=== PATIENT | female | born 1985 | race Caucasian/White ===

== ENCOUNTER → 2020-09-03 | Outpatient (CLI) | payer OTHER ==
--- NOTE | 2020-09-04 08:15 | US ---
EXAMINATION TYPE: US chest DATE OF EXAM: 09/03/2020 COMPARISON: EXAMINATION TYPE: US chest DATE OF EXAM: 09/03/2020 COMPARISON: NONE CLINICAL HISTORY: R22.2 LUMP RT LOWER BACK. Lump on lower right back. Hyperechoic area seen measuring 1.5 x .8 x .7 cm. IMPRESSION: Hyperechoic lesion within the subcutaneous fat of the right back in the region of palpable abnormalit y most likely represents a lipoma, however, liposarcoma could appear identical and if there is clinic al concern, MRI with and without contrast could be performed.
== END | disposition home or self-care (01) ==
LOC: RADUSWWP 16:45
PROVIDERS: ATTEND Family Medicine
DX: R22.2 Localized swelling, mass and lump, trunk (principal)
CPT/HCPCS: 76604

== ENCOUNTER → 2020-11-26 | Outpatient (CLI) | payer OTHER ==
--- NOTE | 2020-11-26 12:30 | MR ---
EXAMINATION TYPE: MR lumbar spine wo/w con DATE OF EXAM: 11/26/2020 COMPARISON: None HISTORY: Swelling,mass,lump, Disorder of skin, are 22.2 TECHNIQUE: Multiplanar, multisequence images of the lumbar spine were acquired without and with 14 mL intravenou s Gadavist gadolinium contrast. There is artifact of the exam, possible motion at the site of patient's overlying marker in the posterior posterior aspect to the right of midline a t the level of the lower thoracic spine there is underlying fat. No evidence soft tissue mass. L1-L2: Normal disc appearance without desiccation. No herniation, protrusion or disc bulging. No ca nal stenosis is present. Foramina are patent bilaterally. L2-L3: Normal disc appearance without desiccation. No herniation, protrusion or disc bulging. No ca nal stenosis is present. Foramina are patent bilaterally. There is some facet arthropathy with hyper trophy of ligamentum flavum causing minimal posterior lateral aspect of the thecal sac. L3-L4: Normal disc appearance without desiccation. No herniation, protrusion or disc bulging. No ca nal stenosis is present. Foramina are patent bilaterally. Facet arthropathy changes present. L4-L5: Loss of disc signals consistent with disc desiccation and degenerative disc disease. Facet ar thropathy changes present causing some posterior lateral aspect of the thecal sac. There is a posteri or disc bulge causing anterior aspect of the thecal sac. No herniation, protrusion or disc bulging. No canal stenosis is present. Foramina are patent bilaterally. L5-S1: Normal disc appearance without desiccation. No herniation, protrusion or disc bulging. No ca nal stenosis is present. Foramina are patent bilaterally. Lumbar segments are intact. No paraspinal masses are identified. Conus medullaris has a normal appe arance. T10-11 shows posterior broad-based disc bulge possibly contacting the anterior thoracic cord. Multilevel Schmorl's node formation is identified. Some increased signal within the sacral alae on t he right may be related to stress changes, reactive marrow signal change. There is no abnormal enhancement following contrast administration. IMPRESSION: Generative disease and facet arthropathy as described. There is artifact on the exam. Correlate for p ossible lipoma at the site of patient's palpable mass.
== END | disposition home or self-care (01) ==
LOC: RADMRIMAIN 09:17
PROVIDERS: ATTEND Family Medicine
DX: M51.36 Other intervertebral disc degeneration, lumbar region (principal); M51.26 Other intervertebral disc displacement, lumbar region; R22.2 Localized swelling, mass and lump, trunk; M47.816 Spondylosis without myelopathy or radiculopathy, lumbar region
CPT/HCPCS: 72158

== ENCOUNTER 2021-07-25 07:47 | Emergency (ER) | payer OTHER ==
[2021-07-25 07:52] VITALS: TEMP 98.2
--- NOTE | 2021-07-25 08:14 | ED ---
General Adult HPI - General Chief complaint: Chest Pain Stated complaint: Chest Pain Time Seen by Provider: 07/25/21 07:48 Source: patient Mode of arrival: wheelchair Limitations: no limitations - History of Present Illness Initial comments: Dictation was produced using [employer] dictation software. please excuse any grammatical, word or spelling errors. Chief Complaint: 35-year-old female presents to the emergency department for couple hours of chest pain History of Present Illness: 35-year-old female she presents to emergency depa rtment for sharp chest pain. She states that it's in her left anterior chest worse with deep inspiration. Patient states she has no history of coronary artery disease however she has been seen by her private care doctor for evaluation of chest pain and was told that she should follow-up with cardiology for higher levels of some lab. Patient states she does have family history of coronary artery disease and heart attacks. Patient states that around the time that she had a sharp chest pain she did have some numbing sensation to her left upper extremity. States that her pain is worse when she takes a deep breath. Denies any shortness of breath. Patient has no history of blood clots. Denies any calf tenderness or leg swelling. The ROS documented in this emergency department record has been reviewed and confirmed by me. Those systems with pertinent positive or negative responses hedrick ve been documented in the HPI. All other systems are other negative and/or noncontributory. PHYSICAL EXAM: General Impression: Alert and oriented x3, not in acute distress HEENT: Normocephalic atraumatic, extra-ocular movements intact, pupils equal and reactive to light bilaterally, mucous membranes moist. Cardiovascular: Heart regular rate and rhythm Chest: Able to complete full sentences, no retractions, no tachypnea Abdomen: abdomen soft, non-tender, non-distended, no organomegaly Musculoskeletal: Pulses present and equal in all extremities, no peripheral edema Motor: no focal deficits noted Neurological: CN II-XII grossly intact, no focal motor or sensory deficits noted Skin: Intact with no visualized rashes Psych: Normal affect and mood ED course: 35-year-old female presents emergency department for atypical chest pain with typical features. Signs upon arrival are within acceptable limits. EKG does not show any signs of ischemia or infarction however there is T-wave inversions in 3 and aVF. Overall her EKG is nonspecific. She is well- appearing. Patient is slightly reproduced with palpation to the left anterior chest and with manipulation of the left upper extremity Laboratory evaluation obtained. CBC, coag panel, metabolic panel is unremarkable. Troponin is negative. Chest x-ray is nonacute. Disposition options were discussed. Patient agrees to the second troponin to determine criteria for discharge. Patient had second troponin drawn found to be negative. Patient be discharged and advised close follow-up with primary care doctor. EKG interpretation: Ventricular rate 70, sinus rhythm, FL interval 142, a 79, QTC 419. No FL prolongation, no QTC prolongation, T-wave inversions in lead 3 and aVF no old EKG for comparison Overall, this EKG is nonspecific - Related Data Home Medications Medication Instructions Recorded Confirmed Ergocalciferol [Vitamin D2 (1250 1,250 mcg PO MOFR 07/25/21 07/25/21 Mcg = 73796 Iu)] Loratadine [Claritin] 10 mg PO DAILY 07/25/21 07/25/21 Losartan [Cozaar] 50 mg PO DAILY 07/25/21 07/25/21 Norgestimate-Ethinyl Estradiol 1 tab PO DAILY 07/25/21 07/25/21 [Sprintec 28 Day Tablet] Allergies Allergy/AdvReac Type Severity Reaction Status Date / Time No Known Allergies Allergy Verified 07/25/21 11:01 Review of Systems ROS Statement: Those systems with pertinent positive or pertinent negative responses have been documented in the HPI. ROS Other: All systems not noted in ROS Statement are negative. Past Medical History Past Medical History: Hypertension History of Any Multi-Drug Resistant Organisms: None Reported Past Surgical History: Adenoidectomy, Tonsillectomy Past Psychological History: No Psychological Hx Reported Smoking Status: Never smoker Past Alcohol Use History: None Reported Past Drug Use History: None Reported General Exam Limitations: no limitations Course Vital Signs 07/25/21 07/25/21 07:49 08:05 Temperature 98.2 F Pulse Rate 88 79 Respiratory 16 20 Rate Blood Pressure 160/99 147/73 O2 Sat by Pulse 98 100 Oximetry Medical Decision Making - Lab Data Result diagrams: 07/25/21 08:34 07/25/21 08:34 Lab Results 07/25/21 07/25/21 07/25/21 Range/Units 08:34 08:34 08:34 WBC 7.5 (3.8-10.6) k/uL RBC 4.41 (3.80-5.40) m/uL Hgb 12.7 (11.4-16.0) gm/dL Hct 37.9 (34.0-46.0) % MCV 85.9 (80.0-100.0) fL MCH 28.7 (25.0-35.0) pg MCHC 33.4 (31.0-37.0) g/dL RDW 13.0 (11.5-15.5) % Plt Count 276 (150-450) k/uL MPV 7.8 Neutrophils % 59 % Lymphocytes % 30 % Monocytes % 6 % Eosinophils % 3 % Basophils % 1 % Neutrophils # 4.4 (1.3-7.7) k/uL Lymphocytes # 2.3 (1.0-4.8) k/uL Monocytes # 0.4 (0-1.0) k/uL Eosinophils # 0.2 (0-0.7) k/uL Basophils # 0.1 (0-0.2) k/uL PT 9.5 (9.0-12.0) sec INR 0.8 (<1.2) APTT 23.4 (22.0-30.0) sec Sodium 137 (137-145) mmol/L Potassium 3.9 (3.5-5.1) mmol/L Chloride 104 (98-107) mmol/L Carbon Dioxide 27 (22-30) mmol/L Anion Gap 6 mmol/L BUN 11 (7-17) mg/dL Creatinine 0.59 (0.52-1.04) mg/dL Est GFR (CKD-EPI)AfAm >90 (>60 ml/min/1.73 sqM) Est GFR (CKD-EPI)NonAf >90 (>60 ml/min/1.73 sqM) Glucose 110 H (74-99) mg/dL Calcium 8.2 L (8.4-10.2) mg/dL Magnesium 2.0 (1.6-2.3) mg/dL Total Bilirubin 0.3 (0.2-1.3) mg/dL AST 21 (14-36) U/L ALT 13 (4-34) U/L Alkaline Phosphatase 72 (38-126) U/L Troponin I (0.000-0.034) ng/mL Total Protein 6.8 (6.3-8.2) g/dL Albumin 3.6 (3.5-5.0) g/dL 07/25/21 07/25/21 Range/Units 08:34 11:25 WBC (3.8-10.6) k/uL RBC (3.80-5.40) m/uL Hgb (11.4-16.0) gm/dL Hct (34.0-46.0) % MCV (80.0-100.0) fL MCH (25.0-35.0) pg MCHC (31.0-37.0) g/dL RDW (11.5-15.5) % Plt Count (150-450) k/uL MPV Neutrophils % % Lymphocytes % % Monocytes % % Eosinophils % % Basophils % % Neutrophils # (1.3-7.7) k/uL Lymphocytes # (1.0-4.8) k/uL Monocytes # (0-1.0) k/uL Eosinophils # (0-0.7) k/uL Basophils # (0-0.2) k/uL PT (9.0-12.0) sec INR (<1.2) APTT (22.0-30.0) sec Sodium (137-145) mmol/L Potassium (3.5-5.1) mmol/L Chloride (98-107) mmol/L Carbon Dioxide (22-30) mmol/L Anion Gap mmol/L BUN (7-17) mg/dL Creatinine (0.52-1.04) mg/dL Est GFR (CKD-EPI)AfAm (>60 ml/min/1.73 sqM) Est GFR (CKD-EPI)NonAf (>60 ml/min/1.73 sqM) Glucose (74-99) mg/dL Calcium (8.4-10.2) mg/dL Magnesium (1.6-2.3) mg/dL Total Bilirubin (0.2-1.3) mg/dL AST (14-36) U/L ALT (4-34) U/L Alkaline Phosphatase (38-126) U/L Troponin I <0.012 <0.012 (0.000-0.034) ng/mL Total Protein (6.3-8.2) g/dL Albumin (3.5-5.0) g/dL Disposition Clinical Impression: Chest pain Disposition: HOME SELF-CARE Condition: Fair Instructions (If sedation given, give patient instructions): Chest Pain (ED) Is patient prescribed a controlled substance at d/c from ED?: No Referrals: Maria Alejandra Nolan MD [Primary Care Provider] - 1-2 days Time of Disposition: 12:16
[2021-07-25 08:43] LABS: Basophils # (A) 0.1 k/uL (0-0.2); Basophils % (A) 1 %; Eosinophils # (A) 0.2 k/uL (0-0.7); Eosinophils % (A) 3 %; HCT 37.9 % (34.0-46.0); HGB 12.7 gm/dL (11.4-16.0); Lymphocytes # (A) 2.3 k/uL (1.0-4.8); Lymphocytes % (A) 30 %; MCH 28.7 pg (25.0-35.0); MCHC 33.4 g/dL (31.0-37.0); MCV 85.9 fL (80.0-100.0); Mean Platelet Volume 7.8; Monocytes # (A) 0.4 k/uL (0-1.0); Monocytes % (A) 6 %; Neutrophils # (A) 4.4 k/uL (1.3-7.7); Neutrophils % (A) 59 %; Platelet Count 276 k/uL (150-450); RBC 4.41 m/uL (3.80-5.40); WBC 7.5 k/uL (3.8-10.6)
[2021-07-25 08:56] LABS: INR 0.8 (<1.2); Partial Thromboplastin Time 23.4 sec (22.0-30.0); Prothrombin Time 9.5 sec (9.0-12.0)
[2021-07-25 08:58] LABS: ALT 13 U/L (4-34); AST 21 U/L (14-36); African American GFR (CKD) >90 (>60 ml/min/1.73 sqM); Albumin 3.6 g/dL (3.5-5.0); Alkaline Phosphatase 72 U/L (38-126); Anion Gap 6 mmol/L; Blood Urea Nitrogen 11 mg/dL (7-17); Calcium 8.2 mg/dL (8.4-10.2); Carbon Dioxide 27 mmol/L (22-30); Chloride 104 mmol/L (98-107); Glucose 110 mg/dL (74-99); Non-African American GFR(CKD) >90 (>60 ml/min/1.73 sqM); Potassium 3.9 mmol/L (3.5-5.1); Sodium 137 mmol/L (137-145); Total Bilirubin 0.3 mg/dL (0.2-1.3); Total Protein 6.8 g/dL (6.3-8.2)
--- NOTE | 2021-07-25 08:59 | XR ---
EXAMINATION TYPE: XR chest 2V DATE OF EXAM: 07/25/2021 COMPARISON: NONE HISTORY: Chest pain There is no interstitial opacities or pulmonary vascular congestion TECHNIQUE: Frontal and lateral views of the chest are obtained. FINDINGS: There is no focal air space opacity, pleural effusion, or pneumothorax seen. The cardiac silhouette size is within normal limits. The osseous structures are intact. There are no interstitial opacities and no pulmonary vascular congestion. IMPRESSION: No acute cardiopulmonary process.
[2021-07-25] MEDS ORDERED: ASPIRIN 81 MG PO STA (09:28)
[2021-07-25 12:32] VITALS: BP 140/78; PULSE 80; RESP 18
== END 2021-07-25 12:35 | disposition home or self-care (01) ==
LOC: EC 07:47
DX: R07.89 Other chest pain (principal); I10 Essential (primary) hypertension
CPT/HCPCS: 36415; 71046; 80053; 83735; 84484; 85025; 85610; 85730; 93005; 99285

== ENCOUNTER → 2022-03-08 | Outpatient (CLI) | payer BC ==
--- NOTE | 2022-03-08 10:30 | US ---
EXAMINATION TYPE: US abdomen complete DATE OF EXAM: 03/08/2022 COMPARISON: NONE CLINICAL HISTORY: E55.9 vit D deficiency R12 heartburn. Heartburn exam limitations due to body habit us. TECHNIQUE: Multiple sonographic images of the abdomen are obtained. 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 The liver is homogenous. The intrahepatic portion of the IVC and proximal abdominal aorta are within normal limits. There is no evidence of c holelithiasis. Common bile duct is unremarkable. Pancreas is not well seen. The spleen is unremarka ble. Kidneys are symmetric and free of hydronephrosis. No renal lesions are seen. IMPRESSION: Limited examination due to body habitus, but no specific abnormality noted.
== END | disposition home or self-care (01) ==
LOC: RADUSWWP 09:30
PROVIDERS: ATTEND Family Medicine
DX: E55.9 Vitamin D deficiency, unspecified (principal); R12 Heartburn
CPT/HCPCS: 76700

== ENCOUNTER → 2022-07-05 | Outpatient (CLI) | payer BC ==
--- NOTE | 2022-07-06 16:02 | XR ---
EXAMINATION TYPE: XR foot complete RT DATE OF EXAM: 07/05/2022 CLINICAL HISTORY: Pain. Recent kicking injury. TECHNIQUE: Frontal, lateral, and oblique images of the right foot are obtained. COMPARISON: None FINDINGS: There is no acute fracture/dislocation evident in the right foot. Flexion within the toes is present. There is mild to moderate narrowing and mild spurring at the first metatarsophalangeal arti int. Tiny inferior calcaneal spur. There is enthesopathy posterior superior calcaneus at distal Achil les tendon insertion. There is moderate spurring midfoot level dorsal aspect on the lateral view. Ove rlying soft tissue is unremarkable. IMPRESSION: As above.
== END | disposition home or self-care (01) ==
LOC: RADXRMAIN 16:07
PROVIDERS: ATTEND Family Medicine
DX: M77.31 Calcaneal spur, right foot (principal); M76.61 Achilles tendinitis, right leg

== ENCOUNTER 2022-07-16 10:48 | Emergency (ER) | payer BC ==
[2022-07-16 10:58] VITALS: TEMP 98.1
--- NOTE | 2022-07-16 11:38 | ED ---
General Adult HPI - General Chief complaint: Extremity Problem,Nontraumatic Stated complaint: R foot numbness Time Seen by Provider: 07/16/22 11:04 Source: patient, RN notes reviewed Mode of arrival: ambulatory Limitations: no limitations - History of Present Illness Initial comments: 36-year-old female presents to the emergency department with chief complaint of right foot pain. Patient states that the pain started a couple weeks ago and has progressively gotten worse. She has been following with her primary care physician for this she was seen yesterday at Dr. Lutz's office. She states that she has numbness in her second through fifth digits which does not extend into the foot. She has been staying off of her foot at work per request of Dr. Lutz. She is taking meloxicam for the pain which she states does not help. She last took it this morning. She denies any new injury. Denies fever, chills. Denies erythema, swelling. Past medical history includes hypertension, GERD. - Related Data Home Medications Medication Instructions Recorded Confirmed Ergocalciferol [Vitamin D2 (1250 1,250 mcg PO MOFR 07/25/21 07/25/21 Mcg = 73741 Iu)] Loratadine [Claritin] 10 mg PO DAILY 07/25/21 07/25/21 Losartan [Cozaar] 50 mg PO DAILY 07/25/21 07/25/21 norgestimate-ethinyl estradioL 1 tab PO DAILY 07/25/21 07/25/21 [Sprintec 28 Day Tablet] Allergies Allergy/AdvReac Type Severity Reaction Status Date / Time No Known Allergies Allergy Verified 07/16/22 10:58 Review of Systems ROS Statement: Those systems with pertinent positive or pertinent negative responses have been documented in the HPI. ROS Other: All systems not noted in ROS Statement are negative. Past Medical History Past Medical History: Hypertension, Rheumatoid Arthritis (RA) History of Any Multi-Drug Resistant Organisms: None Reported Past Surgical History: Adenoidectomy, Tonsillectomy Past Psychological History: No Psychological Hx Reported Smoking Status: Never smoker Past Alcohol Use History: None Reported Past Drug Use History: None Reported General Exam Limitations: no limitations General appearance: alert, in no apparent distress Head exam: Present: atraumatic, normocephalic, normal inspection Eye exam: Present: normal appearance ENT exam: Present: normal exam, mucous membranes moist Neck exam: Present: normal inspection. Absent: tenderness, meningismus, lymphadenopathy Respiratory exam: Present: normal lung sounds bilaterally. Absent: respiratory distress, wheezes, rales, rhonchi, stridor Cardiovascular Exam: Present: regular rate, normal rhythm, normal heart sounds. Absent: systolic murmur, diastolic murmur, rubs, gallop, clicks Extremities exam: Present: normal capillary refill, other (Decreased ROM at digits 2-5, tenderness over dorsal foot, DP and PT pulses 2+). Absent: pedal edema, joint swelling, calf tenderness Back exam: Present: normal inspection Neurological exam: Present: alert, oriented X3, other (DP and PT pulses 2+) Psychiatric exam: Present: normal affect, normal mood Skin exam: Present: warm, dry, intact, normal color, other. Absent: rash Course Vital Signs 07/16/22 07/16/22 10:56 12:42 Temperature 98.1 F 98.1 F Pulse Rate 89 87 Respiratory 20 18 Rate Blood Pressure 152/98 140/78 O2 Sat by Pulse 99 99 Oximetry Medical Decision Making - Medical Decision Making Was pt. sent in by a medical professional or institution ([facility] Kelly, RN BUILDING, urgent care, hospital, or custodial...) When possible be specific @ -No Did you speak to anyone other than the patient for history (EMS, parent, family, police, friend...)? What history was obtained from this source @ -No Did you review nursing and triage notes (agree or disagree)? Why? @ -I reviewed and agree with nursing and triage notes Were old charts reviewed (outside hosp., previous admission, EMS record, old EKG, old radiological studies, urgent care reports/EKG's, custodial records)? Report findings @ -X-ray from 07/05/22 was reviewed which showed osteoarthritis Differential Diagnosis (chest pain, altered mental status, abdominal pain women, abdominal pain men, vaginal bleeding, weakness, fever, dyspnea, syncope, headache, dizziness, GI bleed, back pain, seizure, CVA, palpatations, mental health, musculoskeletal)? @ -Differential Musculoskeletal Muscular strain, contusion, ligament sprain, fracture, arthritis, septic arthritis, bursitis, cellulitis, muscle spasm, nerve compression, DVT, arterial occlusion, herpes zoster, electrolyte abnormality, tumor.... This is not meant to be in all inclusive list EKG interpreted by me (3pts min.). @ -None X-rays interpreted by me (1pt min.). @ -X-ray of the right foot showed no acute fractures or dislocations. CT interpreted by me (1pt min.). @ -None done U/S interpreted by me (1pt. min.). @ -None done What testing was considered but not performed or refused? (CT, X-rays, U/S, labs)? Why? @ -None What meds were considered but not given or refused? Why? @ -None Did you discuss the management of the patient with other professionals (professionals i.e. Dr., PA, RN BUILDING, lab, RT, psych nurse, social media campaign manager, key person, teacher, correctional probation officer, geriatric case manager)? Give summary @ -No Was smoking cessation discussed for >3mins.? @ -No Was critical care preformed (if so, how long)? @ -No Were there social determinants of health that impacted care today? How? (Homelessness, low income, unemployed, alcoholism, drug addiction, transportation, low edu. Level, literacy, decrease access to med. care, shelter, rehab)? @ -No Was there de-escalation of care discussed even if they declined (Discuss DNR or withdrawal of care, Hospice)? DNR status @ -No What co-morbidities impacted this encounter? (DM, HTN, Smoking, COPD, CAD, Cancer, CVA, ARF, Chemo, Hep., AIDS, mental health diagnosis, sleep apnea, morbid obesity)? @ -None Was patient admitted / discharged? Hospital course, mention meds given and route, prescriptions, significant lab abnormalities, going to OR and other pertinent info. @ -Discharged. Patient presented to emergency department with chief complaint of right foot pain. Patient states that the pain is been going on for 1-2 months. On examination, foot is warm, skin dry and intact, DP and PT pulses 2+ bilaterally. No erythema or edema to the right leg or foot. X-ray was obtained which showed no acute fractures or dislocations. Return precautions discussed with the patient. Patient advised to continue the meloxicam as needed for pain and follow-up with Dr. Lutz for potential podiatry referral. Patient was requesting a work note for tomorrow which she was given with return on monday. Patient discharged in stable condition. The patient was assessed by my attending, Dr. Acosta as well was agreeing with my assessment. Undiagnosed new problem with uncertain prognosis? @ -No Drug Therapy requiring intensive monitoring for toxicity (Heparin, Nitro, Insulin, Cardizem)? @ -No Were any procedures done? @ -No Diagnosis/symptom? @ -Foot pain Acute, or Chronic, or Acute on Chronic? @ -Acute Uncomplicated (without systemic symptoms) or Complicated (systemic symptoms)? @ -uncomplicated Side effects of treatment? @ -No Exacerbation, Progression, or Severe Exacerbation? @ -No Poses a threat to life or bodily function? How? (Chest pain, USA, VT, pneumonia, PE, COPD, DKA, ARF, appy, cholecystitis, CVA, Diverticulitis, Homicidal, Suicidal, threat to staff... and all critical care pts) @ -No Disposition Clinical Impression: Foot pain, right Disposition: HOME SELF-CARE Condition: Stable Instructions (If sedation given, give patient instructions): Arthritis (ED) Additional Instructions: Follow-up with Dr. Lutz on Monday. Please return to the emergency department for new or worsening symptoms. Is patient prescribed a controlled substance at d/c from ED?: No Referrals: Robin Lutz DO [Primary Care Provider] - 1-2 days Time of Disposition: 12:26
--- NOTE | 2022-07-16 11:55 | XR ---
EXAMINATION TYPE: XR foot complete RT DATE OF EXAM: 07/16/2022 CLINICAL HISTORY: pain TECHNIQUE: Frontal, lateral and oblique images of the right foot are obtained. COMPARISON: None. FINDINGS: There is no acute fracture/dislocation evident. The joint spaces appear within normal larry its. The overlying soft tissue appears unremarkable. IMPRESSION: There is no acute fracture or dislocation. ICD 10 NO FRACTURE, INITIAL EVALUATION
[2022-07-16 12:43] VITALS: BP 140/78; PULSE 87; RESP 18
== END 2022-07-16 12:43 | disposition home or self-care (01) ==
LOC: EC 10:48
DX: M79.671 Pain in right foot (principal); I10 Essential (primary) hypertension
CPT/HCPCS: 99283

== ENCOUNTER 2022-07-22 20:04 | Inpatient (IN) | payer BC ==
[2022-07-22] MEDS ORDERED: SODIUM CHLORIDE 0.9% 1,000 ML IV STA (20:11)
--- NOTE | 2022-07-22 20:28 | ED ---
Dizziness HPI - General Chief Complaint: Syncope Stated Complaint: Near Syncope Time Seen by Provider: 07/22/22 20:11 Source: patient, EMS, RN notes reviewed, old records reviewed Mode of arrival: EMS Limitations: no limitations - History of Present Illness Initial Comments: This is a 36-year-old female to the emergency department for evaluation by the patient presents today for evaluation of not feeling well. She had syncopal episode just prior to arrival this lasted for about quite some time per family she was initially pale diaphoretic and turning blue. Patient states she's been dealing with recently significant right lower extremity pain has kept her out of work is unable to walk on her right leg in the white leg turns blue with significant exertion. Pain on the foot is just with ambulation. Denying current chest pain or shortness of breath MD Complaint: dizziness, near syncope -: days(s) Timing: sudden onset, gradual onset, waxing/waning, now resolved Description: near-syncope History of Same: No History of Trauma: No Severity: moderate Improves With: remaining still Associated Symptoms: denies other symptoms - Related Data Home Medications Medication Instructions Recorded Confirmed Loratadine [Claritin] 10 mg PO HS 07/25/21 07/22/22 Albuterol Inhaler [Ventolin Hfa 2 puff INHALATION RT-Q6H PRN 07/22/22 07/22/22 Inhaler] Pantoprazole [Protonix] 40 mg PO DAILY 07/22/22 07/22/22 Previous Rx's Medication Instructions Recorded Apixaban [Eliquis Starter Pack 5 - 10 mg PO DIRECTED 30 Days 07/25/22 (for VTE)] #1 each Allergies Allergy/AdvReac Type Severity Reaction Status Date / Time No Known Allergies Allergy Verified 07/22/22 21:43 Review of Systems ROS Statement: Those systems with pertinent positive or pertinent negative responses have been documented in the HPI. ROS Other: All systems not noted in ROS Statement are negative. Past Medical History Past Medical History: Hypertension, Rheumatoid Arthritis (RA) History of Any Multi-Drug Resistant Organisms: None Reported Past Surgical History: Adenoidectomy, Tonsillectomy Past Psychological History: No Psychological Hx Reported Smoking Status: Never smoker Past Alcohol Use History: None Reported Past Drug Use History: None Reported General Exam Limitations: no limitations General appearance: alert, in no apparent distress, anxious Head exam: Present: atraumatic, normocephalic, normal inspection Eye exam: Present: normal appearance, PERRL, EOMI. Absent: scleral icterus, conjunctival injection, periorbital swelling ENT exam: Present: normal exam, mucous membranes moist Neck exam: Present: normal inspection. Absent: tenderness, meningismus, lymphadenopathy Respiratory exam: Present: normal lung sounds bilaterally. Absent: respiratory distress, wheezes, rales, rhonchi, stridor Cardiovascular Exam: Present: normal rhythm, tachycardia, normal heart sounds. Absent: systolic murmur, diastolic murmur, rubs, gallop, clicks GI/Abdominal exam: Present: soft, normal bowel sounds. Absent: distended, tenderness, guarding, rebound, rigid Extremities exam: Present: normal inspection, full ROM, normal capillary refill. Absent: tenderness, pedal edema, joint swelling, calf tenderness Back exam: Present: normal inspection Neurological exam: Present: alert, oriented X3, CN II-XII intact Psychiatric exam: Present: normal affect, normal mood Skin exam: Present: warm, dry, intact, normal color. Absent: rash Course Vital Signs 07/22/22 07/22/22 20:06 22:41 Temperature 98.8 F 98.4 F Pulse Rate 110 H 98 Respiratory 18 18 Rate Blood Pressure 149/110 128/82 O2 Sat by Pulse 97 97 Oximetry - Reevaluation(s) Reevaluation #1: 07/22/22 20:26 Medical record is reviewed Reevaluation #2: 07/22/22 20:27 Patient symptoms are improved no recurrent syncope Reevaluation #3: 07/22/22 20:27 Patient informed results questions Reevaluation #4: 07/22/22 20:28 Was pt. sent in by a medical professional or institution? @ -no Did you speak to anyone other than the patient for history? @ -no Did you review nursing and triage notes? @ -agree Were old charts reviewed? @ -no Differential Diagnosis? @ -prior EKG interpreted by me (3pts min.)? @ -yes X-rays interpreted by me (1pt min.)? @ -no CT interpreted by me (1pt min.)? @ -yes U/S interpreted by me (1pt. min.)? @ -yes What testing was considered but not performed? (CT, X-rays, U/S, labs)? Why? @ -no What meds were considered but not given? Why? @ -TPA for PE with significant burn of Did you discuss the management of the patient with other professionals? @ -no Did you reconcile home meds? @ -no Was smoking cessation discussed for >3mins.? @ -no Was critical care preformed (if so, how long)? @ -yes31 Were there social determinants of health that impacted care today? How? (Homelessness, low income, unemployed, alcoholism, drug addiction, transportation, low edu. Level, literacy, decrease access to med. care, snf, rehab)? @ -no Was there de-escalation of care discussed even if they declined? (Discuss DNR or withdrawal of care, Hospice)? @ -no What co-morbidities impacted this encounter? (DM, HTN, Smoking, COPD, CAD, Cancer, CVA, Hep., AIDS, mental health diagnosis, sleep apnea, morbid obesity)? @ -none Was patient admitted / discharged? @ -36 female to the emergency department for evaluation of a syncopal event. Patient had syncope here and prior to the emergency department with PE causing syncope, pulmonary embolism causing syncope, pulmonary embolism from right lower extremity DVT Admitted Undiagnosed new problem with uncertain prognosis? @ -no Drug Therapy requiring intensive monitoring for toxicity (Heparin, Nitro, Insulin, Cardizem)? @ -no Were any procedures done? @ -no Diagnosis/symptom? @ -Pulmonary embolism from syncope Acute, or Chronic, or Acute on Chronic? @ -Acute Uncomplicated (without systemic symptoms) or Complicated (systemic symptoms)? @ -complicated Side effects of treatment? @ -no Exacerbation, Progression, or Severe Exacerbation] @ -no Poses a threat to life or bodily function? @ -yes PE regarding significant syncope Reevaluation #5: 07/22/22 20:27 Differential Syncope: Valvular disease, hypertrophic cardiomyopathy, pulmonary embolism, tamponade, tachycardia, bradycardia, NV, hypovolemia, hemorrhage, dissection, anemia, intracranial hemorrhage, seizure, hypoglycemia, carbon monoxide poisoning, this is not meant to be an all-inclusive list. - Consultations Consultation #1: Spoke with admitting physicians who agree to admit this patient Consultation #2: Spoke with vascular surgery who will see patient in regards to PE EKG Findings - EKG Comments: EKG Findings:: EKG is sinus tachycardia 113 MN 108 QRS 82 QTC 377 - EKG Results: EKG: interpreted by ALIREZA Medical Decision Making - Medical Decision Making 36 female to the emergency department for evaluation of a syncopal event. Patient had syncope here and prior to the emergency department with PE causing syncope, pulmonary embolism causing syncope, pulmonary embolism from right lower extremity DVT - Lab Data Result diagrams: 07/25/22 03:11 07/25/22 03:11 Lab Results 07/22/22 07/22/22 07/22/22 Range/Units 20:15 20:15 20:15 WBC 11.4 H (3.8-10.6) k/uL RBC 5.48 H (3.80-5.40) m/uL Hgb 15.1 (11.4-16.0) gm/dL Hct 44.8 (34.0-46.0) % MCV 81.8 (80.0-100.0) fL MCH 27.5 (25.0-35.0) pg MCHC 33.6 (31.0-37.0) g/dL RDW 13.3 (11.5-15.5) % Plt Count 241 (150-450) k/uL MPV 8.4 Neutrophils % 56 % Lymphocytes % 33 % Monocytes % 6 % Eosinophils % 2 % Basophils % 1 % Neutrophils # 6.4 (1.3-7.7) k/uL Lymphocytes # 3.8 (1.0-4.8) k/uL Monocytes # 0.7 (0-1.0) k/uL Eosinophils # 0.2 (0-0.7) k/uL Basophils # 0.1 (0-0.2) k/uL PT 10.3 (9.0-12.0) sec INR 1.0 (<1.2) APTT 23.5 (22.0-30.0) sec D-Dimer 12.05 H (<0.60) mg/L FEU Sodium 137 (137-145) mmol/L Potassium 4.2 (3.5-5.1) mmol/L Chloride 101 (98-107) mmol/L Carbon Dioxide 21 L (22-30) mmol/L Anion Gap 15 mmol/L BUN 18 H (7-17) mg/dL Creatinine 0.75 (0.52-1.04) mg/dL Est GFR (CKD-EPI)AfAm >90 (>60 ml/min/1.73 sqM) Est GFR (CKD-EPI)NonAf >90 (>60 ml/min/1.73 sqM) Glucose 115 H (74-99) mg/dL Calcium 9.2 (8.4-10.2) mg/dL Magnesium 1.9 (1.6-2.3) mg/dL Total Bilirubin 0.6 (0.2-1.3) mg/dL AST 31 (14-36) U/L ALT 28 (4-34) U/L Alkaline Phosphatase 94 (38-126) U/L Troponin I (0.000-0.034) ng/mL NT-Pro-B Natriuret Pep pg/mL Total Protein 8.0 (6.3-8.2) g/dL Albumin 4.2 (3.5-5.0) g/dL 07/22/22 07/22/22 Range/Units 20:15 20:15 WBC (3.8-10.6) k/uL RBC (3.80-5.40) m/uL Hgb (11.4-16.0) gm/dL Hct (34.0-46.0) % MCV (80.0-100.0) fL MCH (25.0-35.0) pg MCHC (31.0-37.0) g/dL RDW (11.5-15.5) % Plt Count (150-450) k/uL MPV Neutrophils % % Lymphocytes % % Monocytes % % Eosinophils % % Basophils % % Neutrophils # (1.3-7.7) k/uL Lymphocytes # (1.0-4.8) k/uL Monocytes # (0-1.0) k/uL Eosinophils # (0-0.7) k/uL Basophils # (0-0.2) k/uL PT (9.0-12.0) sec INR (<1.2) APTT (22.0-30.0) sec D-Dimer (<0.60) mg/L FEU Sodium (137-145) mmol/L Potassium (3.5-5.1) mmol/L Chloride (98-107) mmol/L Carbon Dioxide (22-30) mmol/L Anion Gap mmol/L BUN (7-17) mg/dL Creatinine (0.52-1.04) mg/dL Est GFR (CKD-EPI)AfAm (>60 ml/min/1.73 sqM) Est GFR (CKD-EPI)NonAf (>60 ml/min/1.73 sqM) Glucose (74-99) mg/dL Calcium (8.4-10.2) mg/dL Magnesium (1.6-2.3) mg/dL Total Bilirubin (0.2-1.3) mg/dL AST (14-36) U/L ALT (4-34) U/L Alkaline Phosphatase (38-126) U/L Troponin I 0.079 H* (0.000-0.034) ng/mL NT-Pro-B Natriuret Pep 1260 pg/mL Total Protein (6.3-8.2) g/dL Albumin (3.5-5.0) g/dL - EKG Data -: EKG Interpreted by Me (EKG is sinus tachycardia 113 MN 108 QRS 82 QTC 377) - Radiology Data Radiology results: report reviewed (CTA chest positive for bilateral PE, ultrasound shows positive DVT), image reviewed Critical Care Time Critical Care Time: Yes Total Critical Care Time: 31 Disposition Clinical Impression: Syncope, Pulmonary embolism, Right leg DVT, Bilateral pulmonary embolism, Dehydration, Weakness Disposition: ADMITTED IP TO THIS [facility] Condition: Stable Is patient prescribed a controlled substance at d/c from ED?: No Time of Disposition: 22:30
[2022-07-22 20:33] LABS: Basophils # (A) 0.1 k/uL (0-0.2); Basophils % (A) 1 %; Eosinophils # (A) 0.2 k/uL (0-0.7); Eosinophils % (A) 2 %; HCT 44.8 % (34.0-46.0); HGB 15.1 gm/dL (11.4-16.0); Lymphocytes # (A) 3.8 k/uL (1.0-4.8); Lymphocytes % (A) 33 %; MCH 27.5 pg (25.0-35.0); MCHC 33.6 g/dL (31.0-37.0); MCV 81.8 fL (80.0-100.0); Mean Platelet Volume 8.4; Monocytes # (A) 0.7 k/uL (0-1.0); Monocytes % (A) 6 %; Neutrophils # (A) 6.4 k/uL (1.3-7.7); Neutrophils % (A) 56 %; Platelet Count 241 k/uL (150-450); RBC 5.48 m/uL (3.80-5.40); RDW 13.3 % (11.5-15.5); WBC 11.4 k/uL (3.8-10.6)
[2022-07-22 20:35] LABS: ALT 28 U/L (4-34); African American GFR (CKD) >90 (>60 ml/min/1.73 sqM); Albumin 4.2 g/dL (3.5-5.0); Anion Gap 15 mmol/L; Blood Urea Nitrogen 18 mg/dL (7-17); Calcium 9.2 mg/dL (8.4-10.2); Carbon Dioxide 21 mmol/L (22-30); Chloride 101 mmol/L (98-107); Glucose 115 mg/dL (74-99); Non-African American GFR(CKD) >90 (>60 ml/min/1.73 sqM); Sodium 137 mmol/L (137-145)
[2022-07-22 20:36] LABS: AST 31 U/L (14-36); Alkaline Phosphatase 94 U/L (38-126); Magnesium 1.9 mg/dL (1.6-2.3); Potassium 4.2 mmol/L (3.5-5.1); Total Bilirubin 0.6 mg/dL (0.2-1.3)
[2022-07-22 20:48] LABS: Partial Thromboplastin Time 23.5 sec (22.0-30.0); Prothrombin Time 10.3 sec (9.0-12.0)
[2022-07-22] MEDS ORDERED: NALOXONE 0.4 MG/ML 1 ML VIAL IV PRN (21:58)
--- NOTE | 2022-07-22 22:19 | CT ---
EXAMINATION TYPE: CT angio chest CT DLP: 731.5 mGycm, Automated exposure control for dose reduction was used. DATE OF EXAM: 07/22/2022 9:53 PM COMPARISON: Chest radiograph from 07/25/2021 CLINICAL INDICATION:Female, 36 years old with history of syncope; R/O PE TECHNIQUE/CONTRAST: CTA scan of the thorax is performed with IV Contrast, patient injected with 100ML mL of Isovue 370, p ulmonary embolism protocol. MIP images are created and reviewed these are created on a separate work station.. FINDINGS: Pulmonary Artery: There is a saddle pulmonary embolus with filling defect extending into the lobar, s egmental and subsegmental branches throughout the lungs. RV LV ratio of 44mm/20mm = 2.2. Lungs/Pleura: No evidence of focal consolidation, pleural effusion or pneumothorax. Airway: Large airways are patent. Heart: Heart is within normal limits for size. Vasculature: No evidence of aortic aneurysm. Mediastinum: No gross evidence of adenopathy. Musculoskeletal: No acute osseous abnormalities Soft Tissues: Unremarkable. Lower neck: No significant findings. Upper Abdomen: No significant findings. IMPRESSION: Saddle Central pulmonary embolus extending into the lobar, segmental and subsegmental branches with e vidence of right heart strain. RV/LV ratio of 44/20 = 2.2. Findings communicated to Dr. Palomo Clement DO on 07/22/2022 10:[address] Red Storm.
[2022-07-22] MEDS ORDERED: HEPARIN SODIUM 1,000 UN/ML (10ML VL) IV PRN (22:24)
[2022-07-22] MEDS ORDERED: HEPARIN SODIUM 1,000 UN/ML (10ML VL) IV ONE (22:24)
--- NOTE | 2022-07-22 22:59 | US ---
EXAMINATION TYPE: US venous doppler duplex LE BI DATE OF EXAM: 07/22/2022 9:23 PM COMPARISON: NONE CLINICAL INDICATION: Female, 36 years old with history of syncope; Elevated ddimer. PE. Not on bloo d thinners. EC patient. SIDE PERFORMED: Bilateral TECHNIQUE: The lower extremity deep venous system is examined utilizing real time linear array sonog alon with graded compression, doppler sonography and color-flow sonography. VESSELS IMAGED: Common Femoral Vein Deep Femoral Vein Greater Saphenous Vein * Femoral Vein Popliteal Vein Small Saphenous Vein * Proximal Calf Veins (* superficial vessels) Right Leg: Positive for DVT in Popliteal vein, noncompressible Left Leg: Negative for DVT IMPRESSION: Positive deep vein thrombosis in the right popliteal vein, this: Size with the central pu lmonary embolus seen on same day CT chest angiogram.
[2022-07-23] MEDS: MORPHINE SULFATE 4 MG/ML SYRINGE IV PRN ×2 (00:30→22:09)
[2022-07-23] MEDS: ONDANSETRON 4 MG/2 ML VIAL IVP PRN ×3 (00:31→22:09)
[2022-07-23] MEDS: SODIUM CHLORIDE 0.9% 1,000 ML IV SCH ×4 (00:31→16:21)
[2022-07-23] MEDS: HEPARIN SOD,PORK IN 0.45% NACL 25,000 UNIT in 0.45% NACL 1 250ML.BAG IV SCH ×5 (00:32→16:21)
[2022-07-23] MEDS ORDERED: ACETAMINOPHEN TAB 325 MG TAB PO STA (05:32)
[2022-07-23 05:37] LABS: Basophils % (A) 0 %; Eosinophils # (A) 0.2 k/uL (0-0.7); Eosinophils % (A) 2 %; HCT 40.7 % (34.0-46.0); HGB 13.1 gm/dL (11.4-16.0); Lymphocytes # (A) 3.6 k/uL (1.0-4.8); Lymphocytes % (A) 35 %; MCH 26.9 pg (25.0-35.0); MCHC 32.3 g/dL (31.0-37.0); MCV 83.3 fL (80.0-100.0); Mean Platelet Volume 8.5; Monocytes # (A) 0.8 k/uL (0-1.0); Monocytes % (A) 8 %; Neutrophils # (A) 5.6 k/uL (1.3-7.7); Neutrophils % (A) 53 %; Platelet Count 214 k/uL (150-450); RBC 4.88 m/uL (3.80-5.40); RDW 13.4 % (11.5-15.5); WBC 10.5 k/uL (3.8-10.6)
[2022-07-23] MEDS: ACETAMINOPHEN TAB 325 MG TAB PO PRN ×2 (12:18→18:20)
--- NOTE | 2022-07-23 13:12 | P.CRDCN ---
History of Present Illness Consult date: 07/23/22 Consult reason: sycope History of present illness: History of present illness: Patient is a pleasant 36-year-old female with significant past medical history of hypertension (on blood pressure medication since age 22) who presented to the emergency department with complaints of syncope. She reports that 1 week ago she noticed that her right leg was hurting in her right foot was starting to turn blue, she was seen at that time and foot x-ray completed. Then yesterday she was at her parent's house walking down some steps when she felt faint and went to sit down but did lose consciousness from approximately less than 1 minute. She denies any prior history of syncope. She does have a significant family history of heart disease including grandfather with CABG, uncle and aunt with multiple PCI and a cousin with history of blood clots. CTA of the chest and reveals subtle central pulmonary embolus extending into the lobar, segmental and subsegmental branches with evidence of right heart strain. Venous Doppler was positive for DVT and popliteal vein, left leg negative for DVT. EKG shows sinus tachycardia with occasional PVCs, nonspecific T-wave changes. She denies any prior history of blood clots. Labs revealed troponin elevated 0.079, 0.217, 0.196, BNP 1260. She was started on a heparin drip. She is feeling a little better this morning, does get short of breath when getting up to use bedside commode. She has mild chest pain that she relates is a 2/10. Denies any dizziness or lightheadedness. No further episodes of syncope. REVIEW OF SYSTEMS: No fever or chills. No cough or expectoration. No diaphoresis. Patient denies headache, dizziness, blurred vision, double vision. Patient denies any stomach discomfort. No nausea, vomiting. No hematochezia. No hematemesis. Denies any black stools or blood in his stools. Denies dysuria or hematuria. No muscle weakness or numbness. Reports shortness of breath, mild ch est discomfort, right leg pain. PHYSICAL EXAMINATION: This is a 36-year-old email in no apparent distress at the time of my examination. HEENT: Head is atraumatic, normocephalic. Pupils are equal, round. Sclerae anicteric. Conjunctivae are clear. Mucous membranes of the mouth are moist. Neck is supple. There is no jugular venous distention. No carotid bruit is heard. CHEST EXAMINATION: Lungs are clear to auscultation. No chest wall tenderness is noted on palpation or with deep breathing. HEART EXAMINATION: Heart regular rate and rhythm. S1, S2 heard. No murmurs, gallops or rub. ABDOMEN: Soft, nontender. Bowel sounds are heard. EXTREMITIES: Trace RLE edema right calf tenderness noted. NEUROLOGIC EXAMINATION: Patient is awake, alert and oriented x3. IMPRESSION AND PLAN: Saddle PE with evidence of right heart strain Right popliteal DVT Dyspnea Chest pain Syncope, likely related to PE Abnormal troponin PLAN: We will check echocardiogram. Continue with anticoagulation. Will check lipid panel given significant family history of CAD. Further management of pulmonary embolism as per vascular surgery. I am dictating on behalf of Dr. Hardik Pérez's history/physical and assessm ent/plan. Past Medical History Past Medical History: Hypertension, Rheumatoid Arthritis (RA), Syncope History of Any Multi-Drug Resistant Organisms: None Reported Past Surgical History: Adenoidectomy, Tonsillectomy Past Psychological History: No Psychological Hx Reported Smoking Status: Never smoker Past Alcohol Use History: None Reported Past Drug Use History: None Reported Medications and Allergies Home Medications Medication Instructions Recorded Confirmed Type Loratadine [Claritin] 10 mg PO HS 07/25/21 07/22/22 History Losartan [Cozaar] 50 mg PO HS 07/25/21 07/22/22 History norgestimate-ethinyl estradioL 1 tab PO HS 07/25/21 07/22/22 History [Sprintec 28 Day Tablet] Albuterol Inhaler [Ventolin Hfa 2 puff INHALATION RT-Q6H PRN 07/22/22 07/22/22 History Inhaler] Meloxicam [Mobic] 15 mg PO DAILY 07/22/22 07/22/22 History Pantoprazole [Protonix] 40 mg PO DAILY 07/22/22 07/22/22 History Allergies Allergy/AdvReac Type Severity Reaction Status Date / Time No Known Allergies Allergy Verified 07/22/22 21:43 Physical Exam Vitals: Vital Signs Temp Pulse Pulse Resp BP BP Pulse Ox 07/23/22 08:27 96 07/23/22 04:00 107 H 20 138/94 07/23/22 02:00 106 H 07/23/22 00:00 97.9 F 106 H 24 140/98 96 07/22/22 22:41 98.4 F 98 18 128/82 97 07/22/22 20:06 98.8 F 110 H 18 149/110 97 Intake and Output 07/22/22 07/23/22 07/23/22 22:59 06:59 14:59 Intake Total 142.6 48.626 Balance 142.6 48.626 Intake: Intake, IV Titration 142.6 48.626 Amount Heparin Sod,Pork in 0.45% 142.6 48.626 NaCl 25,000 unit In 0.45 % NaCl 1 250ml.bag @ 15. 9454 UNITS/KG/HR 23 mls/ hr IV .[id number] [facility] Rx#: [id number] Other: # Voids 1 1 Weight 144.242 kg 144.242 kg Results 07/23/22 04:48 07/22/22 20:15 Cardiac Enzymes 07/22/22 07/22/22 07/22/22 Range/Units 20:15 20:15 23:18 AST 31 (14-36) U/L Troponin I 0.079 H* 0.217 H* (0.000-0.034) ng/mL 07/23/22 Range/Units 04:48 AST (14-36) U/L Troponin I 0.196 H* (0.000-0.034) ng/mL Coagulation 07/22/22 07/23/22 Range/Units 20:15 04:48 PT 10.3 (9.0-12.0) sec APTT 23.5 42.3 H (22.0-30.0) sec CBC 07/22/22 07/23/22 Range/Units 20:15 04:48 WBC 11.4 H 10.5 (3.8-10.6) k/uL RBC 5.48 H 4.88 (3.80-5.40) m/uL Hgb 15.1 13.1 (11.4-16.0) gm/dL Hct 44.8 40.7 (34.0-46.0) % Plt Count 241 214 (150-450) k/uL Comprehensive Metabolic Panel 07/22/22 Range/Units 20:15 Sodium 137 (137-145) mmol/L Potassium 4.2 (3.5-5.1) mmol/L Chloride 101 (98-107) mmol/L Carbon Dioxide 21 L (22-30) mmol/L BUN 18 H (7-17) mg/dL Creatinine 0.75 (0.52-1.04) mg/dL Glucose 115 H (74-99) mg/dL Calcium 9.2 (8.4-10.2) mg/dL AST 31 (14-36) U/L ALT 28 (4-34) U/L Alkaline Phosphatase 94 (38-126) U/L Total Protein 8.0 (6.3-8.2) g/dL Albumin 4.2 (3.5-5.0) g/dL Current Medications Generic Name Dose Route Start Last Admin Trade Name Freq PRN Reason Stop Dose Admin Heparin Sodium (Porcine) 0 unit 07/22/22 22:24 07/23/22 06:43 Heparin Sodium 1,000 Un/Ml (10ml Vl) IV 5,760 unit PER PROTOCOL PRN Administration Low PTT Protocol Sodium Chloride 1,000 mls @ 75 mls/hr 07/22/22 22:00 07/23/22 00:31 Saline 0.9% IV 75 mls/hr .[id number] SHAHEED Administration Heparin Sodium/Sodium Chloride 250 mls @ 23 mls/hr 07/22/22 22:30 07/23/22 08:38 25,000 unit/ Sodium Chloride IV Not Given .[id number] [facility] Protocol 15.9454 UNITS/KG/HR Morphine Sulfate 4 mg 07/22/22 21:58 07/23/22 00:30 Morphine Sulfate 4 Mg/Ml Syringe IV 4 mg Q4HR PRN Administration Severe Pain (Scale 7 to 10) Naloxone HCl 0.2 mg 07/22/22 21:58 Naloxone 0.4 Mg/Ml 1 Ml Vial IV Q2M PRN Opioid Reversal Ondansetron HCl 4 mg 07/22/22 21:58 07/23/22 00:31 Ondansetron 4 Mg/2 Ml Vial IVP 4 mg Q8HR PRN Administration Nausea And Vomiting Intake and Output 07/22/22 07/23/22 07/23/22 22:59 06:59 14:59 Intake Total 142.6 48.626 Balance 142.6 48.626 Intake: Intake, IV Titration 142.6 48.626 Amount Heparin Sod,Pork in 0.45% 142.6 48.626 NaCl 25,000 unit In 0.45 % NaCl 1 250ml.bag @ 15. 9454 UNITS/KG/HR 23 mls/ hr IV .[id number] [facility] Rx#: [id number] Other: # Voids 1 1 Weight 144.242 kg 144.242 kg 07/23/22 04:48 07/22/22 20:15
--- NOTE | 2022-07-23 13:12 | P.CNPUL ---
History of Present Illness Consult date: 07/23/22 Requesting physician: Andrew Simon Reason for consult: pulmonary embolism Chief complaint: Shortness of breath and syncope History of present illness: This is a 36-year-old female with family history of thromboembolic disease, patient has been on control pills until recently, presented to the ER with syncopal episode and felt lightheaded and dizzy. Patient passed out for a few seconds and she was diaphoretic and turning blue. Workup in the ER showed bilateral saddle emboli. CT of the chest is suggestive of right ventricular strain. Echocardiogram is pending. Patient was admitted, vascular surgery was consulted for evaluation for possible ekos, cardiology was also consulted, and I was consulted for evaluating the patient. She has not been seen by vascular surgery are cardiology, patient looks comfortable clinically, however considering the clot burden noted on the CT of the chest, I'm recommending a stat echocardiogram, stat cardiology and vascular consultation consult. Patient may be an excellent candidate for ekos thrombolysis. During my evaluation, the patient was on room air, not in any distress, and she had minimal vague chest discomfort. Again the patient had no previous history of thromboembolic disease, but she does have family history of thromboembolic disease/father. PTT is therapeutic, however her troponin level is elevated as high as 0.217 and 0.1 96. BNP level is also a bit high at 1260 echocardiogram is pending Review of Systems Constitutional: Negative HEENT: Negative Cardiopulmonary as noted in HPI GI: Negative Genitourinary: Negative Hematologic: Negative Endocrine: Negative Urologic: Negative Psychiatric: Negative Musculoskeletal: Negative Skin: Past Medical History Past Medical History: Hypertension, Rheumatoid Arthritis (RA), Syncope History of Any Multi-Drug Resistant Organisms: None Reported Past Surgical History: Adenoidectomy, Tonsillectomy Past Psychological History: No Psychological Hx Reported Smoking Status: Never smoker Past Alcohol Use History: None Reported Past Drug Use History: None Reported Medications and Allergies Home Medications Medication Instructions Recorded Confirmed Type Loratadine [Claritin] 10 mg PO HS 07/25/21 07/22/22 History Losartan [Cozaar] 50 mg PO HS 07/25/21 07/22/22 History norgestimate-ethinyl estradioL 1 tab PO HS 07/25/21 07/22/22 History [Sprintec 28 Day Tablet] Albuterol Inhaler [Ventolin Hfa 2 puff INHALATION RT-Q6H PRN 07/22/22 07/22/22 History Inhaler] Meloxicam [Mobic] 15 mg PO DAILY 07/22/22 07/22/22 History Pantoprazole [Protonix] 40 mg PO DAILY 07/22/22 07/22/22 History Allergies Allergy/AdvReac Type Severity Reaction Status Date / Time No Known Allergies Allergy Verified 07/22/22 21:43 Physical Exam Vitals: Vital Signs Temp Pulse Pulse Resp BP BP Pulse Ox 07/23/22 08:27 96 07/23/22 08:00 95 18 127/86 94 L 07/23/22 04:00 107 H 20 138/94 07/23/22 02:00 106 H 07/23/22 00:00 97.9 F 106 H 24 140/98 96 07/22/22 22:41 98.4 F 98 18 128/82 97 07/22/22 20:06 98.8 F 110 H 18 149/110 97 Intake and Output 07/22/22 07/23/22 07/23/22 22:59 06:59 14:59 Intake Total 142.6 107.400 Balance 142.6 107.400 Intake: Intake, IV Titration 142.6 107.400 Amount Heparin Sod,Pork in 0.45% 142.6 107.400 NaCl 25,000 unit In 0.45 % NaCl 1 250ml.bag @ 15. 9454 UNITS/KG/HR 23 mls/ hr IV .[id number] [facility] Rx#: [id number] Other: # Voids 1 1 Weight 144.242 kg 144.242 kg Physical Exam: Revealed 36-year-old female obese in no distress Head: Atraumatic, normocephalic. HEENT:[Neck is supple.] [No neck masses.] [No thyromegaly.] [No JVD.] Chest: [Clear throughout, no crackles, no rhonchi, no wheezes.] Cardiac Exam: [Normal S1 and S2, no S3 gallop, no murmur.] Abdomen: [Soft, nontender, no megaly, no rebound, no guarding, normal bowel sounds.] Extremities: [No clubbing, no edema, no cyanosis.] Neurological Exam: [No focal neurologic deficit.] Alert oriented 3. Focal deficit Psychiatric: Normal mood affect and normal mental status examination. Skin: No rashes Results - Laboratory Findings CBC and BMP: 07/23/22 04:48 07/22/22 20:15 PT/INR, D-dimer PT 10.3 sec (9.0-12.0) 07/22/22 20:15 INR 1.0 (<1.2) 07/22/22 20:15 D-Dimer 12.05 mg/L FEU (<0.60) H 07/22/22 20:15 Abnormal lab findings: Abnormal Labs 07/22/22 07/22/22 07/22/22 20:15 20:15 20:15 WBC 11.4 H RBC 5.48 H APTT D-Dimer 12.05 H Carbon Dioxide 21 L BUN 18 H Glucose 115 H Troponin I 07/22/22 07/22/22 07/23/22 20:15 23:18 04:48 WBC RBC APTT D-Dimer Carbon Dioxide BUN Glucose Troponin I 0.079 H* 0.217 H* 0.196 H* 07/23/22 04:48 WBC RBC APTT 42.3 H D-Dimer Carbon Dioxide BUN Glucose Troponin I - Diagnostic Findings CT scan - chest: image reviewed (As noted in HPI) Assessment and Plan Assessment: Impression: Acute massive pulmonary embolism Acute right deep vein thrombosis/right lower extremity popliteal vein Family history of thrombolic embolic disease Benign essential hypertension History of rheumatoid arthritis Recommendation: Continue heparin Check stat echocardiogram, consult cardiology and vascular surgery patient may benefit from ekos thrombolysis. Patient to stop taking control pills/estrogen Patient may eventually require workup for hypercoagulable state. And decide on the length of treatment of her anticoagulation therapy. We will continue to follow. Time with Patient: Greater than 30
[2022-07-23] MEDS ORDERED: ALBUTEROL HFA INHALER INHALATION PRN (14:36)
[2022-07-23] MEDS ORDERED: LIDOCAINE 1% INJ 10MG/ML (20 ML MDV) ONE (15:29)
[2022-07-23] MEDS ORDERED: ALTEPLASE 6 MG in SODIUM CHLORIDE 0.9% 144 ML IV ONE ×4 (15:29)
--- NOTE | 2022-07-23 15:34 | P.GSCN ---
History of Present Illness Consult date: 07/23/22 Reason for Consult: Saddle PE with heart strain History of present illness: 36-year-old female with family history of thromboembolic disease, and current use of control pills presented to the hospital yesterday due to a syncopal episode. Patient passed out for a few seconds and she was diaphoretic and turning blue according to her family. She states prior to this episode she had been laying in bed and keeping her legs up due to a recent injury to her foot. Upon evaluation by the emergency department she underwent a computed tomography scan of her chest which demonstrated bilateral saddle embolus with right heart strain. Patient states she has not been having any difficulty with breathing while laying in bed or sitting but has noticed increased work of breathing when she gets up to walk. Echocardiogram this morning is pending but after discussion with the ferry terminal supervisor it appears to demonstrate right heart strain. Currently she is doing well and is on room air with good saturations until she gets up and moves. She denies any chest pain, fevers, chills, back pain, shortness of breath at rest. She does admit to shortness of breath with movement. Review of Systems All systems: negative (What is mentioned in the HPI or past medical history) Past Medical History Past Medical History: Hypertension, Rheumatoid Arthritis (RA), Syncope History of Any Multi-Drug Resistant Organisms: None Reported Past Surgical History: Adenoidectomy, Tonsillectomy Past Psychological History: No Psychological Hx Reported Smoking Status: Never smoker Past Alcohol Use History: None Reported Past Drug Use History: None Reported Medications and Allergies Home Medications Medication Instructions Recorded Confirmed Type Loratadine [Claritin] 10 mg PO HS 07/25/21 07/22/22 History Losartan [Cozaar] 50 mg PO HS 07/25/21 07/22/22 History norgestimate-ethinyl estradioL 1 tab PO HS 07/25/21 07/22/22 History [Sprintec 28 Day Tablet] Albuterol Inhaler [Ventolin Hfa 2 puff INHALATION RT-Q6H PRN 07/22/22 07/22/22 History Inhaler] Meloxicam [Mobic] 15 mg PO DAILY 07/22/22 07/22/22 History Pantoprazole [Protonix] 40 mg PO DAILY 07/22/22 07/22/22 History Allergies Allergy/AdvReac Type Severity Reaction Status Date / Time No Known Allergies Allergy Verified 07/22/22 21:43 Surgical - Exam Vital Signs Temp Pulse Resp BP Pulse Ox 98.8 F 110 H 18 149/110 97 07/22/22 20:06 07/22/22 20:06 07/22/22 20:06 07/22/22 20:06 07/22/22 20:06 - General well developed, well nourished, obese - Eyes PERRL, normal ocular movement - ENT normal pinna, normal nares - Neck no masses, no bruits - Respiratory Decreased inspiratory effort with deep breath - Cardiovascular Rhythm: regular - Abdomen Morbidly obese Abdomen: soft, non tender - Integumentary no rash, no growths - Psychiatric oriented to time, oriented to person, oriented to place, speech is normal Palpable DP and PT pulse. Tenderness to palpation right calf. Results - Labs 07/23/22 04:48 07/22/22 20:15 Abnormal Lab Results - Last 24 Hours (Table) 07/22/22 07/22/22 07/22/22 Range/Units 20:15 20:15 20:15 WBC 11.4 H (3.8-10.6) k/uL RBC 5.48 H (3.80-5.40) m/uL APTT (22.0-30.0) sec D-Dimer 12.05 H (<0.60) mg/L FEU Carbon Dioxide 21 L (22-30) mmol/L BUN 18 H (7-17) mg/dL Glucose 115 H (74-99) mg/dL Troponin I (0.000-0.034) ng/mL 07/22/22 07/22/22 07/23/22 Range/Units 20:15 23:18 04:48 WBC (3.8-10.6) k/uL RBC (3.80-5.40) m/uL APTT (22.0-30.0) sec D-Dimer (<0.60) mg/L FEU Carbon Dioxide (22-30) mmol/L BUN (7-17) mg/dL Glucose (74-99) mg/dL Troponin I 0.079 H* 0.217 H* 0.196 H* (0.000-0.034) ng/mL 07/23/22 07/23/22 Range/Units 04:48 12:46 WBC (3.8-10.6) k/uL RBC (3.80-5.40) m/uL APTT 42.3 H 52.9 H (22.0-30.0) sec D-Dimer (<0.60) mg/L FEU Carbon Dioxide (22-30) mmol/L BUN (7-17) mg/dL Glucose (74-99) mg/dL Troponin I (0.000-0.034) ng/mL Diabetes panel 07/22/22 Range/Units 20:15 Sodium 137 (137-145) mmol/L Potassium 4.2 (3.5-5.1) mmol/L Chloride 101 (98-107) mmol/L Carbon Dioxide 21 L (22-30) mmol/L BUN 18 H (7-17) mg/dL Creatinine 0.75 (0.52-1.04) mg/dL Glucose 115 H (74-99) mg/dL Calcium 9.2 (8.4-10.2) mg/dL AST 31 (14-36) U/L ALT 28 (4-34) U/L Alkaline Phosphatase 94 (38-126) U/L Total Protein 8.0 (6.3-8.2) g/dL Albumin 4.2 (3.5-5.0) g/dL Calcium panel 07/22/22 Range/Units 20:15 Calcium 9.2 (8.4-10.2) mg/dL Albumin 4.2 (3.5-5.0) g/dL Pituitary panel 07/22/22 Range/Units 20:15 Sodium 137 (137-145) mmol/L Potassium 4.2 (3.5-5.1) mmol/L Chloride 101 (98-107) mmol/L Carbon Dioxide 21 L (22-30) mmol/L BUN 18 H (7-17) mg/dL Creatinine 0.75 (0.52-1.04) mg/dL Glucose 115 H (74-99) mg/dL Calcium 9.2 (8.4-10.2) mg/dL Adrenal panel 07/22/22 Range/Units 20:15 Sodium 137 (137-145) mmol/L Potassium 4.2 (3.5-5.1) mmol/L Chloride 101 (98-107) mmol/L Carbon Dioxide 21 L (22-30) mmol/L BUN 18 H (7-17) mg/dL Creatinine 0.75 (0.52-1.04) mg/dL Glucose 115 H (74-99) mg/dL Calcium 9.2 (8.4-10.2) mg/dL Total Bilirubin 0.6 (0.2-1.3) mg/dL AST 31 (14-36) U/L ALT 28 (4-34) U/L Alkaline Phosphatase 94 (38-126) U/L Total Protein 8.0 (6.3-8.2) g/dL Albumin 4.2 (3.5-5.0) g/dL - Imaging CT scan - chest: report reviewed, image reviewed Additional studies: Lower extremity ultrasound demonstrates acute DVT involving the right popliteal vein Assessment and Plan Assessment: Bilateral saddle pulmonary embolism with right heart strain Acute deep venous thrombosis involving the right popliteal vein Morbid obesity History of control Recent right ankle/foot injury Plan: I reviewed her computed tomography scan and lower extremity ultrasound with her and her family in full detail which demonstrates significant clot burden across the pulmonary artery in a saddle fashion. There does appear to be right heart strain on CT as well as echo and elevation of troponins. I did discuss with her options including continued oral anticoagulation with no intervention versus catheter directed thrombolysis or thrombectomy. Due to the involvement of the distal vessels I would recommend thrombolytic therapy with EKOS. After risks, benefits and complications were discussed patient and family decided to go with thrombolytic therapy and we will place, the catheters and initiate thrombolysis. Thank you for the consultation.
[2022-07-23] MEDS ORDERED: MIDAZOLAM 2 MG/2 ML VIAL IV ONE (15:45)
[2022-07-23] MEDS ORDERED: LIDOCAINE 1% INJ 10MG/ML (20 ML MDV) SQ ONE (15:48)
[2022-07-23] MEDS ORDERED: HYDROcodone/APAP 5-325MG 1 EACH TAB PO PRN (16:11)
[2022-07-23] MEDS ORDERED: LORazepam 2 MG/ML INJ IV PRN (16:11)
--- NOTE | 2022-07-23 16:16 | P.OP ---
Date of Procedure: 07/23/22 Description of Procedure: Preoperative diagnosis: Bilateral Pulmonary artery embolus with right heart strain Postoperative diagnosis: Same Procedure: Ultrasound-guided right femoral vein access with placement of bilateral thrombolytic EKOS catheters and initiation of thrombolysis. Surgeon: Kieran Meyers D.O. Anesthesia: Local with conscious sedation x 23 minutes Estimated blood loss: Minimal Complications: None Condition: Stable Indication for procedure: 36-year-old female presented to the hospital secondary to syncope, exertional dyspnea after evaluation and was found to have bilateral saddle pulmonary embolus with right heart strain seen on CAT scan as well as verified on echo and elevated troponins. She presents today for probably catheter placement. Operative narrative: After written and informed consent was obtained from the patient and all risk, benefits and complications were discussed the patient was brought to the [facility] and laid in a supine position. The area of the right groin was prepped and draped in usual sterile fashion. Timeout was performed in normal fashion. Under ultrasound guidance the right common femoral vein was accessed 2 and 6-Moldovan sheaths were placed utilizing Seldinger technique. 035 Glidewire advantage was then placed and directed to the inferior vena cava and atrial junction. Utilizing an angled glide catheter the atria was accessed and wire was placed into the right ventricle and ultimately up to the pulmonary artery. The pulmonary artery on the right was accessed and wire was placed into the segmental branch with removal of the angled glide catheter. Through the other sheath and 035 Glidewire advantage was placed and utilizing the angled glide catheter the left pulmonary artery was accessed and wire was placed into the segmental branch and catheter was removed. The EKOS infusion catheters were then guided over the guidewires into the appropriate position across the pulmonary arteries bilaterally. Wires were then removed and replaced with the ultrasound inner core wire. 2 mg of TPA was then infused into both infusion ports. The sheaths were then secured in place with nylon suture. The area was then cleansed and dressings were placed. The patient was then connected to TPA and heparin as well as coolant per protocol. Patient tolerated procedure well and was sent to the ICU for recovery.
[2022-07-23 16:41] LABS: Glucose,Whole Blood 104 mg/dL (70-110)
--- NOTE | 2022-07-23 16:46 | IR ---
EXAMINATION TYPE: IR embolization any method DATE OF EXAM: 07/23/2022 FLUOROSCOPY Fluoroscopy time of 5.4 minutes was used during vascular procedure. 52 image/s document/s the proced ure. Total DAP: 12.1 Gycm2.
--- NOTE | 2022-07-23 17:57 | CA ---
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[employer] Mechanic Nury Rocha RDCS Procedure CPT: Indications: massive pe rv strain Cardiac Hx: Technical Quality: Technically difficult study Contrast 1: Lumason Total Dose (mL): 4 Contrast 2: Total Dose (mL): MEASUREMENTS (Male / Female) Normal Values 2D ECHO LV Diastolic Diameter PLAX 3.4 cm 4.2 - 5.9 / 3.9 - 5.3 cm LV Systolic Diameter PLAX 1.4 cm IVS Diastolic Thickness 1.5 cm 0.6 - 1.0 / 0.6 - 0.9 cm LVPW Diastolic Thickness 1.2 cm 0.6 - 1.0 / 0.6 - 0.9 cm LV Relative Wall Thickness 0.8 RV Internal Dim ED PLAX 4.1 cm M-MODE Aortic Root Diameter MM 3.1 cm LA Systolic Diameter MM 3.7 cm LA Ao Ratio MM 1.2 AV Cusp Separation MM 1.8 cm DOPPLER AV Peak Velocity 142.3 cm/s AV Peak Gradient 8.1 mmHg AV Mean Velocity 100.1 cm/s AV Mean Gradient 4.5 mmHg AV Velocity Time Integral 21.7 cm LVOT Peak Velocity 113.1 cm/s LVOT Peak Gradient 5.1 mmHg LVOT Velocity Time Integral 23.2 cm MV Area PHT 5.8 cm??? Mitral E Point Velocity 83.5 cm/s Mitral A Point Velocity 58.1 cm/s Mitral E to A Ratio 1.4 MV Deceleration Time 129.7 ms TR Peak Velocity 327.0 cm/s TR Peak Gradient 42.8 mmHg Right Ventricular Systolic Press 50.9 mmHg FINDINGS Left Ventricle Moderately increased left ventricular wall thickness. Left ventricular cavity size normal. Normal left ventricular systolic function with no obvious regional wall motion abnormalities. Left ventricular ejection fraction is estimated at 55-60 %. Right Ventricle Moderate right ventricular dilatation. Moderate pulmonary hypertension. Right ventricular systolic pressure estimated at 51 mm hg. Right Atrium Normal right atrial size. Left Atrium Normal left atrial size. Mitral Valve No mitral stenosis, regurgitation or prolapse. Aortic Valve No aortic valve stenosis or regurgitation. Tricuspid Valve Structurally normal tricuspid valve. [id number] tricuspid regurgitation. Pulmonic Valve Trace pulmonic regurgitation. Pericardium No pericardial effusion. Aorta Normal size aortic root and proximal ascending aorta. CONCLUSIONS Moderate increased left ventricular wall thickness Left ventricular ejection fraction 55-60% RVSP 51 Moderate right ventricular dilation with right ventricular hypokinesis Mild to moderate tricuspid regurgitation Previewed by: Dr. Hardik Pérez DO (Electronically Signed) Final Date: 23 July 2022 17:56
[2022-07-23] MEDS: LORATADINE 10 MG TAB PO SCH (20:24)
[2022-07-23] MEDS ORDERED: LOSARTAN 50 MG TAB PO SCH (21:00)
[2022-07-23 22:17] LABS: Basophils % (A) 0 %; Eosinophils # (A) 0.2 k/uL (0-0.7); Eosinophils % (A) 2 %; HCT 38.9 % (34.0-46.0); HGB 12.8 gm/dL (11.4-16.0); Lymphocytes # (A) 3.2 k/uL (1.0-4.8); Lymphocytes % (A) 39 %; MCH 27.3 pg (25.0-35.0); MCHC 32.8 g/dL (31.0-37.0); MCV 83.3 fL (80.0-100.0); Mean Platelet Volume 8.6; Monocytes # (A) 0.6 k/uL (0-1.0); Monocytes % (A) 8 %; Neutrophils # (A) 3.9 k/uL (1.3-7.7); Neutrophils % (A) 48 %; Platelet Count 210 k/uL (150-450); RBC 4.67 m/uL (3.80-5.40); RDW 13.5 % (11.5-15.5); WBC 8.1 k/uL (3.8-10.6)
[2022-07-24] MEDS: SODIUM CHLORIDE 0.9% 1,000 ML IV SCH ×3 (00:54→13:03)
[2022-07-24] MEDS: MORPHINE SULFATE 4 MG/ML SYRINGE IV PRN ×2 (02:42→07:57)
[2022-07-24] MEDS ORDERED: CYCLOBENZAPRINE 5 MG TAB PO PRN (03:02)
[2022-07-24 04:49] LABS: Partial Thromboplastin Time 25.3 sec (22.0-30.0)
[2022-07-24 04:53] LABS: African American GFR (CKD) >90 (>60 ml/min/1.73 sqM); Anion Gap 9 mmol/L; Blood Urea Nitrogen 11 mg/dL (7-17); Calcium 8.2 mg/dL (8.4-10.2); Carbon Dioxide 23 mmol/L (22-30); Chloride 104 mmol/L (98-107); Glucose 99 mg/dL (74-99); Non-African American GFR(CKD) >90 (>60 ml/min/1.73 sqM); Potassium 4.1 mmol/L (3.5-5.1); Sodium 136 mmol/L (137-145)
[2022-07-24] MEDS: PANTOPRAZOLE 40 MG TABLET PO SCH (07:57)
[2022-07-24 08:55] LABS: Chol/HDL Ratio 3.78 Ratio; LDL Cholesterol,Calculated 110.8 mg/dL (0.0-131.0)
[2022-07-24] MEDS ORDERED: MELOXICAM 7.5 MG TAB PO SCH (09:00)
--- NOTE | 2022-07-24 10:44 | P.PN ---
Subjective History of present illness: Patient is a pleasant 36-year-old female with significant past medical history of hypertension (on blood pressure medication since age 22) who presented to the emergency department with complaints of syncope. She reports that 1 week ago she noticed that her right leg was hurting in her right foot was starting to turn blue, she was seen at that time and foot x-ray completed. Then yesterday she was at her parent's house walking down some steps when she felt faint and went to sit down but did lose consciousness from approximately less than 1 minute. She denies any prior history of syncope. She does have a significant family history of heart disease including grandfather with CABG, uncle and aunt with multiple PCI and a cousin with history of blood clots. CTA of the chest and reveals subtle central pulmonary embolus extending into the lobar, segmental and subsegmental branches with evidence of right heart strain. Venous Doppler was positive for DVT and popliteal vein, left leg negative for DVT. EKG shows sinus tachycardia with occasional PVCs, nonspecific T-wave changes. She denies any prior history of blood clots. Labs revealed troponin elevated 0.079, 0.217, 0.196, BNP 1260. She was started on a heparin drip. She is feeling a little better this morning, does get short of breath when getting up to use bedside commode. She has mild chest pain that she relates is a 2/10. Denies any dizzin ess or lightheadedness. No further episodes of syncope. 05/24 Patient seen and examined. Patient underwent EKOS yesterday without any issues. She does feel somewhat better in terms of less short of breath today. Echo showed preserved EF with right-sided heart strain. PHYSICAL EXAMINATION: This is a 36-year-old email in no apparent distress at the time of my examination. HEENT: Head is atraumatic, normocephalic. Pupils are equal, round. Sclerae anicteric. Conjunctivae are clear. Mucous membranes of the mouth are moist. Neck is supple. There is no jugular venous distention. No carotid bruit is heard. CHEST EXAMINATION: Lungs are clear to auscultation. No chest wall tenderness is noted on palpation or with deep breathing. HEART EXAMINATION: Heart regular rate and rhythm. S1, S2 heard. No murmurs, gallops or rub. ABDOMEN: Soft, nontender. Bowel sounds are heard. EXTREMITIES: Trace RLE edema right calf tenderness noted. NEUROLOGIC EXAMINATION: Patient is awake, alert and oriented x3. IMPRESSION AND PLAN: Saddle PE with evidence of right heart strain Right popliteal DVT Dyspnea Chest pain Syncope, likely related to PE NSTEMI, type 2 related to PE Family history of PE Pulmonary hypertension, related to PE PLAN: Patient underwent EKOS and appears to be somewhat less symptomatic. Transition over to NOAC when cleared by vascular surgery, likely today. Recommend repeat echo in 3 months to evaluate change in RVSP and RV function. Objective - Vital Signs Vital signs: Vital Signs Temp 98.3 F 07/24/22 00:00 Pulse 84 07/24/22 07:00 Resp 22 07/24/22 07:00 BP 108/64 07/24/22 07:00 Pulse Ox 90 L 07/24/22 07:00 FiO2 Intake & Output 07/23/22 07/24/22 07/24/22 18:59 06:59 18:59 Intake Total 458.761 9936 75 Output Total 350 550 Balance 147.138 500 75 Weight 149.6 kg Intake: IV 125 1050 75 Alteplase 6 mg In Sodium 50 150 Chloride 0.9% 144 ml @ 1 MG/HR 25 mls/hr IV .Q6H [facility] Rx#:[id number] Heparin Sod,Pork in 0.45% 5 60 5 NaCl 25,000 unit In 0.45 % NaCl 1 250ml.bag @ 2.5 mls/hr IV .Q24H [facility] Rx#: [id number] Sodium Chloride 0.9% 1, 70 840 70 000 ml @ 35 mls/hr IV . Q24H [facility] Rx#:[id number] Intake, IV Titration 254.138 Amount Heparin Sod,Pork in 0.45% 254.138 NaCl 25,000 unit In 0.45 % NaCl 1 250ml.bag @ 15. 9454 UNITS/KG/HR 23 mls/ hr IV .[id number] [facility] Rx#: [id number] Oral 118 Output: Urine 350 550 Other: Voiding Method External Catheter External Catheter External Catheter # Voids 2 - Labs CBC & Chem 7: 07/23/22 21:57 07/24/22 04:21 Labs: Abnormal Lab Results - Last 24 Hours (Table) 06/10/23 06/11/23 Range/Units 12:46 04:21 APTT 52.9 H (22.0-30.0) sec Sodium 136 L (137-145) mmol/L Calcium 8.2 L (8.4-10.2) mg/dL
--- NOTE | 2022-07-24 11:26 | P.PN ---
Subjective Progress Note Date: 07/24/22 Principal diagnosis: Acute pulmonary embolism This is a 36-year-old female with family history of thromboembolic disease, patient has been on control pills until recently, presented to the ER with syncopal episode and felt lightheaded and dizzy. Patient passed out for a few seconds and she was diaphoretic and turning blue. Workup in the ER showed bilateral saddle emboli. CT of the chest is suggestive of right ventricular strain. Echocardiogram is pending. Patient was admitted, vascular surgery was consulted for evaluation for possible ekos, cardiology was also consulted, and I was consulted for evaluating the patient. She has not been seen by vascular surgery are cardiology, patient looks comfortable clinically, however considering the clot burden noted on the CT of the chest, I'm recommending a stat echocardiogram, stat cardiology and vascular consultation consult. Patient may be an excellent candidate for ekos thrombolysis. During my evaluation, the patient was on room air, not in any distress, and she had minimal vague chest discomfort. Again the patient had no previous history of thromboembolic disease, but she does have family history of thromboembolic disease/father. PTT is therapeutic, however her troponin level is elevated as high as 0.217 and 0.196. BNP level is also a bit high at 1260 echocardiogram is pending Patient was reevaluated today on 07/24/2022, patient is feeling better, she underwent uneventful ekos thrombolysis, doing great at present. Patient will be likely transferred to a cardiac floor, she spent last night in the ICU after her procedure. Her CBC is normal her electric lites are normal renal profile is normal, O2 sats is 90% on room air. Objective - Vital Signs Vital signs: Vital Signs Temp 98.3 F 07/24/22 00:00 Pulse 84 07/24/22 07:00 Resp 22 07/24/22 07:00 BP 108/64 07/24/22 07:00 Pulse Ox 90 L 07/24/22 07:00 FiO2 Intake & Output 07/23/22 07/24/22 07/24/22 18:59 06:59 18:59 Intake Total 899.138 5941 75 Output Total 350 550 Balance 147.138 500 75 Weight 149.6 kg Intake: IV 125 1050 75 Alteplase 6 mg In Sodium 50 150 Chloride 0.9% 144 ml @ 1 MG/HR 25 mls/hr IV .Q6H [facility] Rx#:[id number] Heparin Sod,Pork in 0.45% 5 60 5 NaCl 25,000 unit In 0.45 % NaCl 1 250ml.bag @ 2.5 mls/hr IV .Q24H [facility] Rx#: [id number] Sodium Chloride 0.9% 1, 70 840 70 000 ml @ 35 mls/hr IV . Q24H [facility] Rx#:[id number] Intake, IV Titration 254.138 Amount Heparin Sod,Pork in 0.45% 254.138 NaCl 25,000 unit In 0.45 % NaCl 1 250ml.bag @ 15. 9454 UNITS/KG/HR 23 mls/ hr IV .[id number] [facility] Rx#: [id number] Oral 118 Output: Urine 350 550 Other: Voiding Method External Catheter External Catheter External Catheter # Voids 2 - Exam Physical Exam: Revealed 36-year-old female obese in no distress Head: Atraumatic, normocephalic. HEENT:[Neck is supple.] [No neck masses.] [No thyromegaly.] [No JVD.] Chest: [Clear throughout, no crackles, no rhonchi, no wheezes.] Cardiac Exam: [Normal S1 and S2, no S3 gallop, no murmur.] Abdomen: [Soft, nontender, no megaly, no rebound, no guarding, normal bowel artur nds.] Extremities: [No clubbing, no edema, no cyanosis.] Neurological Exam: [No focal neurologic deficit.] Alert oriented 3. Focal deficit Psychiatric: Normal mood affect and normal mental status examination. Skin: No rashes - Labs CBC & Chem 7: 07/23/22 21:57 07/24/22 04:21 Labs: Abnormal Lab Results - Last 24 Hours (Table) 07/23/22 07/24/22 Range/Units 12:46 04:21 APTT 52.9 H (22.0-30.0) sec Sodium 136 L (137-145) mmol/L Calcium 8.2 L (8.4-10.2) mg/dL Assessment and Plan Assessment: Impression: Acute massive pulmonary embolism, status post ekos thrombolysis by vascular surgery. Acute right deep vein thrombosis/right lower extremity popliteal vein Family history of thrombolic embolic disease Benign essential hypertension History of rheumatoid arthritis Recommendation: Patient could be transferred to a monitor bed on selective. Patient will transition to oral anticoagulation therapy./Eliquis. Patient to stop taking control pills/estrogen Continue to monitor over the next 24 hours, Possible discharge planning in the next 24 hours. Follow-up on outpatient basis We will continue to follow. Time with Patient: Less than 30
--- NOTE | 2022-07-24 13:00 | P.HPIM ---
History of Present Illness H&P Date: 07/23/22 Chief Complaint: Near-syncope 36-year-old female to the emergency department for evaluation by the patient presents today for evaluation of not feeling well. She had syncopal episode just prior to arrival this lasted for about quite some time per family she was initially pale diaphoretic and turning blue. Patient states she's been dealing with recently significant right lower extremity pain has kept her out of work is unable to walk on her right leg in the white leg turns blue with significant exertion. Pain on the foot is just with ambulation. Denying current chest pain or shortness of breath Workup in the ER showed bilateral saddle emboli. CT of the chest is suggestive of right ventricular strain. Echocardiogram is pending. Patient was admitted, vascular surgery was consulted for evaluation for possible ekos, cardiology was also consulted, and I was consulted for evaluating the patient. She has not been seen by vascular surgery are cardiology, patient looks comfortable clinically, however considering the clot burden noted on the CT of the chest, I'm recommending a stat echocardiogram, stat cardiology and vascular consultation consult. Patient may be an excellent candidate for ekos thrombolysis. Review of Systems REVIEW OF SYSTEMS: CONSTITUTIONAL: No fever, no malaise, no fatigue. HEENT: No recent visual problems or hearing problems. Denied any sore throat. CARDIOVASCULAR: No chest pain, orthopnea, PND, no palpitations, no syncope. PULMONARY: No shortness of breath, no cough, no hemoptysis. GASTROINTESTINAL: No diarrhea, no nausea, no vomiting, no abdominal pain. NEUROLOGICAL: No headaches, no weakness, no numbness. HEMATOLOGICAL: Denies any bleeding or petechiae. GENITOURINARY: Denies any burning micturition, frequency, or urgency. MUSCULOSKELETAL/RHEUMATOLOGICAL: Denies any joint pain, swelling, or any muscle pain. ENDOCRINE: Denies any polyuria or polydipsia. The rest of the 14-point review of systems is negative. Past Medical History Past Medical History: Hypertension, Rheumatoid Arthritis (RA), Syncope History of Any Multi-Drug Resistant Organisms: None Reported Past Surgical History: Adenoidectomy, Tonsillectomy Past Psychological History: No Psychological Hx Reported Smoking Status: Never smoker Past Alcohol Use History: None Reported Past Drug Use History: None Reported Medications and Allergies Home Medications Medication Instructions Recorded Confirmed Type Loratadine [Claritin] 10 mg PO HS 07/25/21 07/22/22 History Losartan [Cozaar] 50 mg PO HS 07/25/21 07/22/22 History norgestimate-ethinyl estradioL 1 tab PO HS 07/25/21 07/22/22 History [Sprintec 28 Day Tablet] Albuterol Inhaler [Ventolin Hfa 2 puff INHALATION RT-Q6H PRN 07/22/22 07/22/22 History Inhaler] Meloxicam [Mobic] 15 mg PO DAILY 07/22/22 07/22/22 History Pantoprazole [Protonix] 40 mg PO DAILY 07/22/22 07/22/22 History Allergies Allergy/AdvReac Type Severity Reaction Status Date / Time No Known Allergies Allergy Verified 07/22/22 21:43 Physical Exam Vitals: Vital Signs Temp Pulse Pulse Resp BP BP Pulse Ox 07/23/22 13:56 93 18 07/23/22 12:00 93 18 111/76 95 07/23/22 08:27 96 07/23/22 08:00 95 18 127/86 94 L 07/23/22 04:00 107 H 20 138/94 07/23/22 02:00 106 H 07/23/22 00:00 97.9 F 106 H 24 140/98 96 07/22/22 22:41 98.4 F 98 18 128/82 97 07/22/22 20:06 98.8 F 110 H 18 149/110 97 Intake and Output 07/22/22 07/23/22 07/23/22 22:59 06:59 14:59 Intake Total 142.6 287.796 Balance 142.6 287.796 Intake: Intake, IV Titration 142.6 169.796 Amount Heparin Sod,Pork in 0.45% 142.6 169.796 NaCl 25,000 unit In 0.45 % NaCl 1 250ml.bag @ 15. 9454 UNITS/KG/HR 23 mls/ hr IV .[id number] [facility] Rx#: [id number] Oral 118 Other: # Voids 1 1 Weight 144.242 kg 144.242 kg PHYSICAL EXAMINATION: GENERAL: The patient is alert and oriented x3, not in any acute distress. Well developed, well nourished. HEENT: Pupils are round and equally reacting to light. EOMI. No scleral icterus. No conjunctival pallor. Normocephalic, atraumatic. No pharyngeal erythema. No thyromegaly. CARDIOVASCULAR: S1 and S2 present. No murmurs, rubs, or gallops. PULMONARY: Chest is clear to auscultation, no wheezing or crackles. ABDOMEN: Soft, nontender, nondistended, normoactive bowel sounds. No palpable organomegaly. MUSCULOSKELETAL: No joint swelling or deformity. EXTREMITIES: No cyanosis, clubbing, or pedal edema. NEUROLOGICAL: Gross neurological examination did not reveal any focal deficits. SKIN: No rashes. Results CBC & Chem 7: 07/23/22 21:57 07/24/22 04:21 Labs: Abnormal Lab Results - Last 24 Hours (Table) 07/22/22 07/22/22 07/22/22 Range/Units 20:15 20:15 20:15 WBC 11.4 H (3.8-10.6) k/uL RBC 5.48 H (3.80-5.40) m/uL APTT (22.0-30.0) sec D-Dimer 12.05 H (<0.60) mg/L FEU Carbon Dioxide 21 L (22-30) mmol/L BUN 18 H (7-17) mg/dL Glucose 115 H (74-99) mg/dL Troponin I (0.000-0.034) ng/mL 07/22/22 07/22/22 07/23/22 Range/Units 20:15 23:18 04:48 WBC (3.8-10.6) k/uL RBC (3.80-5.40) m/uL APTT (22.0-30.0) sec D-Dimer (<0.60) mg/L FEU Carbon Dioxide (22-30) mmol/L BUN (7-17) mg/dL Glucose (74-99) mg/dL Troponin I 0.079 H* 0.217 H* 0.196 H* (0.000-0.034) ng/mL 07/23/22 07/23/22 Range/Units 04:48 12:46 WBC (3.8-10.6) k/uL RBC (3.80-5.40) m/uL APTT 42.3 H 52.9 H (22.0-30.0) sec D-Dimer (<0.60) mg/L FEU Carbon Dioxide (22-30) mmol/L BUN (7-17) mg/dL Glucose (74-99) mg/dL Troponin I (0.000-0.034) ng/mL Thrombosis Risk Factor Assmnt - Choose All That Apply Each Factor Represents 1 point: Obesity (BMI >25), Oral contraceptives or hormone replacement therapy Other Risk Factors: No Other congenital or acquired thrombophilia - If yes, enter type in comment: No Thrombosis Risk Factor Assessment Total Risk Factor Score: 2 Thrombosis Risk Factor Assessment Level: Low Risk Assessment and Plan Assessment: 1. Acute massive PE - Patient has been placed on IV heparin; stat echocardiogram is ordered with cardiology and vascular surgery on board to evaluate for right heart strain and, lysis - Patient has been evaluated by pulmonary and is recommended to discontinue control pills and possible hypercoagulable workup to determine the length of treatment with anticoagulation therapy 2. Acute DVT right lower extremity; anticoagulation and hypercoagulable workup as discussed 3. Hypertension; losartan 50 mg daily at bedtime 4. History of rheumatoid arthritis; Mobic 15 mg daily 5. Gastroesophageal reflux disease; Protonix 40 mg daily 6. Seasonal ALLERGY; loratadine 10 mg daily 5. control pill DVT prophylaxis; SCDs/IV heparin CODE STATUS; full code
[2022-07-24] MEDS: HEPARIN SOD,PORK IN 0.45% NACL 25,000 UNIT in 0.45% NACL 1 250ML.BAG IV SCH ×2 (13:03)
[2022-07-24] MEDS: ONDANSETRON 4 MG/2 ML VIAL IVP PRN (14:15)
[2022-07-24] MEDS: LORATADINE 10 MG TAB PO SCH (20:08)
[2022-07-24] MEDS: APIXABAN 5 MG TAB PO SCH (23:44)
[2022-07-25 03:39] LABS: HCT 38.8 % (34.0-46.0); HGB 12.3 gm/dL (11.4-16.0); MCH 27.2 pg (25.0-35.0); MCHC 31.6 g/dL (31.0-37.0); MCV 85.8 fL (80.0-100.0); Mean Platelet Volume 9.3; RBC 4.52 m/uL (3.80-5.40); RDW 13.4 % (11.5-15.5); WBC 7.7 k/uL (3.8-10.6)
[2022-07-25 03:40] LABS: Platelet Count 104 k/uL (150-450)
[2022-07-25 03:58] LABS: African American GFR (CKD) >90 (>60 ml/min/1.73 sqM); Anion Gap 9 mmol/L; Blood Urea Nitrogen 8 mg/dL (7-17); Calcium 8.5 mg/dL (8.4-10.2); Carbon Dioxide 21 mmol/L (22-30); Chloride 105 mmol/L (98-107); Glucose 91 mg/dL (74-99); Non-African American GFR(CKD) >90 (>60 ml/min/1.73 sqM); Sodium 135 mmol/L (137-145)
[2022-07-25 04:27] LABS: Partial Thromboplastin Time 26.9 sec (22.0-30.0); Prothrombin Time 10.8 sec (9.0-12.0)
[2022-07-25] MEDS: PANTOPRAZOLE 40 MG TABLET PO SCH (08:38)
[2022-07-25] MEDS: ONDANSETRON 4 MG/2 ML VIAL IVP PRN (08:38)
[2022-07-25] MEDS: APIXABAN 5 MG TAB PO SCH (08:38)
--- NOTE | 2022-07-25 10:46 | P.PN ---
Subjective Progress Note Date: 07/25/22 Principal diagnosis: Bilateral Pulmonary embolism with right heart strain The patient is seen and examined sitting up in the ICU. She underwent Thrombolysis with EKOS on 07/23/2022. Catheters were removed. She's not had any bleeding or any pain in her right lower extremity. She does state that she's had some left calf discomfort. States her breathing has improved signific antly, denies shortness of breath. Does state that she started with a little bit of a cough this morning. She was started on eliquis 10 mg BID. Objective - Vital Signs Vital signs: Vital Signs Temp 99.0 F 07/25/22 08:00 Pulse 80 07/25/22 10:00 Resp 28 H 07/25/22 10:00 BP 111/78 07/25/22 10:00 Pulse Ox 97 07/25/22 08:00 FiO2 Intake & Output 07/24/22 07/25/22 07/25/22 18:59 06:59 18:59 Intake Total 160 Output Total 500 Balance -340 Weight 145.4 kg Intake: IV 160 Heparin Sod,Pork in 0.45% 30 NaCl 25,000 unit In 0.45 % NaCl 1 250ml.bag @ 2.5 mls/hr IV .Q24H [facility] Rx#: [id number] Sodium Chloride 0.9% 1, 130 000 ml @ 35 mls/hr IV . Q24H [facility] Rx#:[id number] Output: Urine 500 Other: Voiding Method External Catheter Toilet Toilet # Voids 2 0 0 - Exam General appearance: The patient is alert, oriented, appears in no acute distress. Obese. HET: Head is normocephalic and atraumatic. Pupils are equal and reactive. Neck: Supple. Heart: Regular. Lungs: Equal expansion, normal respiratory effort. Abdomen: Soft, obese, nontender, nondistended. Extremities: Normal skin color and turgor. Right groin without any hematoma or bleeding from access site. Sensorimotor intact. Neurological: No focal deficits. Strength and sensation are grossly intact. - Labs CBC & Chem 7: 07/25/22 03:11 07/25/22 03:11 Labs: Abnormal Lab Results - Last 24 Hours (Table) 07/25/22 07/25/22 Range/Units 03:11 03:11 Plt Count 104 L D (150-450) k/uL Sodium 135 L (137-145) mmol/L Carbon Dioxide 21 L (22-30) mmol/L Assessment and Plan Assessment: 1. Bilateral sagittal pulmonary embolism with right heart strain status post t hrombolytics with EKOS 2. Right lower extremity DVT in popliteal vein 3. History of control use 4. Morbid obesity 5. Recent right ankle/foot injury Plan: Continue Eliquis as ordered. Incentive spirometer to the bedside. Patient is cleared from vascular surgery for discharge. Follow-up in 3-4 weeks. The impression and plan of care has been dictated as directed. Dr. Jiang I performed a history and examination of this patient, discussed the same with the dictator. I agree with the dictator's note ,documented as a scribe. Any additional findings or plans will be noted.
--- NOTE | 2022-07-25 11:31 | P.PN ---
Subjective Progress Note Date: 07/25/22 This is a 36-year-old female with family history of thromboembolic disease, patient has been on control pills until recently, presented to the ER with syncopal episode and felt lightheaded and dizzy. Patient passed out for a few seconds and she was diaphoretic and turning blue. Workup in the ER showed bilateral saddle emboli. CT of the chest is suggestive of right ventricular strain. Echocardiogram is pending. Patient was admitted, vascular surgery was consulted for evaluation for possible ekos, cardiology was also consulted, and I was consulted for evaluating the patient. She has not been seen by vascular surgery are cardiology, patient looks comfortable clinically, however considerin g the clot burden noted on the CT of the chest, I'm recommending a stat echocardiogram, stat cardiology and vascular consultation consult. Patient may be an excellent candidate for ekos thrombolysis. During my evaluation, the patient was on room air, not in any distress, and she had minimal vague chest discomfort. Again the patient had no previous history of thromboembolic disease, but she does have family history of thromboembolic disease/father. PTT is therapeutic, however her troponin level is elevated as high as 0.217 and 0.196. BNP level is also a bit high at 1260 echocardiogram is pending Patient was reevaluated today on 07/24/2022, patient is feeling better, she underwent uneventful ekos thrombolysis, doing great at present. Patient will be likely transferred to a cardiac floor, she spent last night in the ICU after her procedure. Her CBC is normal her electric lites are normal renal profile is normal, O2 sats is 90% on room air. The patient is seen today 07/25/2022 in follow-up in the intensive care unit. She is awake and alert in no acute distress. This is postoperative day #2 of her EKOS procedure. Catheters have since been removed. Bilateral groins are stable. She denies any chest pain, shortness of breath cough or congestion. No hemoptysis. She is maintaining good O2 saturations in the 90s on room air. She's afebrile. Hemodynamically stable. She's been transitioned to Eliquis. Objective - Vital Signs Vital signs: Vital Signs Temp 99.0 F 07/25/22 08:00 Pulse 85 07/25/22 11:00 Resp 18 07/25/22 11:00 BP 111/78 07/25/22 11:00 Pulse Ox 97 07/25/22 08:00 FiO2 Intake & Output 07/24/22 07/25/22 07/25/22 18:59 06:59 18:59 Intake Total 160 Output Total 500 Balance -340 Weight 145.4 kg Intake: IV 160 Heparin Sod,Pork in 0.45% 30 NaCl 25,000 unit In 0.45 % NaCl 1 250ml.bag @ 2.5 mls/hr IV .Q24H [facility] Rx#: [id number] Sodium Chloride 0.9% 1, 130 000 ml @ 35 mls/hr IV . Q24H [facility] Rx#:[id number] Output: Urine 500 Other: Voiding Method External Catheter Toilet Toilet # Voids 2 0 0 - Exam GENERAL EXAM: Alert, pleasant 36-year-old female, on room air, comfortable in no apparent distress. HEAD: Normocephalic. EYES: Normal reaction of pupils, equal size. NOSE: Clear with pink turbinates. THROAT: No erythema or exudates. NECK: No masses, no JVD. CHEST: No chest wall deformity. LUNGS: Equal air entry with no crackles, wheeze, rhonchi or dullness. CVS: S1 and S2 normal with no audible murmur, regular rhythm. ABDOMEN: No hepatosplenomegaly, normal bowel sounds, no guarding or rigidity. SPINE: No scoliosis or deformity SKIN: No rashes CENTRAL NERVOUS SYSTEM: No focal deficits, tone is normal in all 4 extremities. EXTREMITIES: There is no peripheral edema. No clubbing, no cyanosis. Peripheral pulses are intact. - Labs CBC & Chem 7: 07/25/22 03:11 07/25/22 03:11 Labs: Abnormal Lab Results - Last 24 Hours (Table) 07/25/22 07/25/22 Range/Units 03:11 03:11 Plt Count 104 L D (150-450) k/uL Sodium 135 L (137-145) mmol/L Carbon Dioxide 21 L (22-30) mmol/L Assessment and Plan Assessment: Acute massive pulmonary embolism, status post EKOS thrombolysis by vascular surgery Syncopal episode secondary to above Acute right deep vein thrombosis/right lower extremity popliteal vein Family history of thrombolic embolic disease Benign essential hypertension History of rheumatoid arthritis Plan: The patient was seen and evaluated Stable and on room air Transitioned to [facility] once cleared by her cardiology, vascular services Patient has discontinued her control pills Remain on Eliquis at least one year Outpatient workup for possible blood dyscrasias I have personally seen and examined the patient, performed the documentation and the assessment and plan as written. Number of minutes spent on the visit: 10.
[2022-07-25 12:40] VITALS: BP 122/70; PULSE 81; RESP 20; TEMP 98.6
--- NOTE | 2022-07-25 21:46 | P.DS ---
Providers Date of admission: 07/22/22 21:58 Attending physician: Andrew Simon Consults: 07/22/22 21:58 Consult Physician Routine Consulting Provider: Kieran Meyers Consult Reason/Comments: PE Do you want consulting provider notified?: Yes Consult Physician Routine Consulting Provider: Jhon Bond Consult Reason/Comments: syncope Do you want consulting provider notified?: Yes 07/23/22 02:10 Consult Physician Routine Consulting Provider: Kaylee Hernandez Consult Reason/Comments: Pulmonary embolism, shortness of breath Do you want consulting provider notified?: Yes, Notify in am 07/23/22 11:34 Consult Physician Stat Consulting Provider: Hardik Pérez Consult Reason/Comments: massive pe/saddle embolus Do you want consulting provider notified?: Yes Primary care physician: Robin Lutz Hospital Course: Final Diagnosis Acute bilateral saddle pulmonary embolism with right heart strain status post thrombolytic EKOS procedure Acute DVT popliteal vein in right lower extremity Mild to moderate tricuspid regurgitation History of hypertension currently normotensive. History of rheumatoid arthritis on mobic daily outpatient Gastroesophageal reflux disease Seasonal allergic rhinitis control use/family planning on combination estrogen/progesterone Recent right ankle/foot injury Morbid Obesity with BMI 50.2 DVT prophylaxis: Eliquis GI prophylaxis: Full Code Discharge Disposition Patient is stable for discharge. S/P EKOS procedure, patient has been started on eliquis to continue on 10 mg twice a day for 6 more days and to transition to 5 mg twice a day. Patients health insurance does not cover eliquis patient was given a 30 day free coupon. Discussed with vascular FOOD MOBILE DRIVER and patient will need to transition to likely coumadin after 30 days of eliquis, patient verbalizes understanding. Patient recommended to continue off control pills at this time. Recommend to see hematology on discharge for genetic testing. Patient does have a follow up appointment with PCP Dr. Robin Lutz on 07/26/2022. Patient needs to follow up with Dr. Meyers in 4 weeks, and Dr. Pérez in 2 weeks. Follow up labs outpatient. Losartan has been discontinued on admission blood pressure has been running in the high 90s to 110s systolic. Hospital Course This is a 36 year old female with medical history of hypertension, GERD, seasonal allergies, rheumatoid arthritis, on combination progesterone/estrogen control. Patient presents with complaints of syncope and shortness of breath with exertion, and found to have elevated D-Dimer of 12 on admission. Patient had chest CT angiography reveals saddle central pulmonary embolism extending into the lobar, segmental and subsegmental branches with evidence of right heart strain. Venous doppler reveals acute DVT in the right popliteal vein, left leg is negative for DVT. Patient was taken to the CVL and underwent thrombolytic EKOS therapy with access through the right femoral vein. Patient was monitored postoperatively in the ICU. Echocardiogram reveals moderate increase LV wall thickness, EF 55-60%, moderate right ventricular dilation with right ventricular hypokinesis, mild to moderate tricuspid regurgitation. Patient did have troponin elevation on admission. Lipid panel shows triglycerides of 119, cholesterol 183, LDL 110, HDL 48. Patient remains hemodynamically stable, afebrile, and currently on room air with oxygen saturation of 97%. Blood pressure 122/70. Patient is currently denying shortness of breath, denies chest pain. No dizziness or lightheadedness. Right groin puncture site is soft approximated no evidence of bruising/hematoma. Positive pedal pulses bilaterally. Patients lungs are clear, S1 S2 auscultated and abdomen is soft and nontender. Has been cleared by pulmonary, cardiology cardiology and vascular services for discharge. Patient has been transitioned to eliquis, however as above insurance does not cover and is providered a 30 day free coupon and will need to be transitioned to likely coumadin after 30 days. Patient to follow up with hematology in the office for further genetic testing. However with recent right ankle/foot injury patient has been more sedentary at home with risk factors of estrogen containing control use and obesity. F/U with vascular in 3-4 weeks as recommended. Please see medication reconciliation for a list of current medications. Thank you for allowing us to participate in the care of this patient. The impression and plan of care has been dictated by Drea Miller Nurse Practitioner as directed. Dr. Milad MD I have performed a history and physical examination and medical decision making of this patient, discussed the same with the dictator, and agree with the dictators assessment and plan as written, documented as a scribe. Based on total visit time, I have performed more than 50% of this visit. Patient Condition at Discharge: Stable Plan - Discharge Summary Discharge Rx Participant: No New Discharge Prescriptions: New Apixaban [Eliquis Starter Pack (for VTE)] 5 - 10 mg PO DIRECTED 30 Days #1 each Continue Pantoprazole [Protonix] 40 mg PO DAILY Albuterol Inhaler [Ventolin Hfa Inhaler] 2 puff INHALATION RT-Q6H PRN PRN Reason: Shortness Of Breath Loratadine [Claritin] 10 mg PO HS Discontinued Meloxicam [Mobic] 15 mg PO DAILY Losartan [Cozaar] 50 mg PO HS norgestimate-ethinyl estradioL [Sprintec 28 Day Tablet] 1 tab PO HS Discharge Medication List Loratadine [Claritin] 10 mg PO HS 07/25/21 [History] Albuterol Inhaler [Ventolin Hfa Inhaler] 2 puff INHALATION RT-Q6H PRN 07/22/22 [History] Pantoprazole [Protonix] 40 mg PO DAILY 07/22/22 [History] Apixaban [Eliquis Starter Pack (for VTE)] 5 - 10 mg PO DIRECTED 30 Days #1 each 07/25/22 [Rx] Follow up Appointment(s)/Referral(s): Nicolas Villar MD [STAFF PHYSICIAN] - 1 Week (Please call office during bussiness hours to make appointment.) Hardik Pérez DO [STAFF PHYSICIAN] - 2 Weeks (Call office during bussiness hours to make appointment.) Kieran Meyers DO [STAFF PHYSICIAN] - 4 Weeks (Call office during bussiness hours to make appointment.) Robin Lutz DO [Primary Care Provider] - 1-2 days (Office will call with appointment date and time) Ambulatory/Diagnostic Orders: Complete Blood Count w/diff [LAB.AMB] Time Frame: 3 Days, Location: None Selected Patient Instructions/Handouts: Pulmonary Embolism (DC), Deep Vein Thrombosis (DC) Activity/Diet/Wound Care/Special Instructions: Follow up with Hematology outpatient for further genetic testing regarding the acute pulmonary embolism/ DVT. Discharge Disposition: HOME SELF-CARE
[2022-07-25] MEDS ORDERED: APIXABAN 5 MG TAB PO SCH (23:25)
--- NOTE | 2022-07-26 02:26 | PN ---
PROGRESS NOTE SUBJECTIVE: This lady presented with acute pulmonary embolism and had EKOS procedure by Dr. Lynne. She had significant right ventricular enlargement, pulmonary hypertension. She is doing well. However, she is anticoagulated on Eliquis. She is going home today. Room air oxygen saturation is good. OBJECTIVE: VITAL SIGNS: Stable. NECK: JVD 1 cm. No carotid bruit. CARDIOVASCULAR: S1, S2 heard normally. No significant murmurs. LUNGS: Clear. PLAN: After discharge, I am requesting that she should follow up with Dr. Pérez in about 2 to 3 weeks and we will perform a repeat echo down the road. I explained to the patient to refrain from taking control pills. Continue other medications. She will also follow up with her PCP. VINAY / PATRICIA: [id number] /
--- NOTE | 2022-07-27 11:03 | CDI ---
Documentation Clarification Form Date: 07/27/22 From: Ora Patrick Admit Date: 07/22/2022 09:58:00 PM Patient Name: Judith Burr Visit Number: [id number] Discharge Date: 07/25/2022 01:15:00 PM ATTENTION: The Clinical Documentation Specialists (CDI) and [facility] Coding Staff appreciate your assistance in clarifying documentation. Please respond to the clarification below the line at the bottom and electronically sign. The CDI & [facility] Coding staff will review the response and follow-up if needed. Please note: Queries are made part of the Legal Health Record. If you have any questions, please contact the author of this message via ITS. Dr. Lila Stinson, There is documentation of acute bilateral saddle pulmonary embolism with right heart strain. Based on this information and the findings below, is there an additional diagnosis that is clinically appropriate for this patient? Patient history/risk factors: Morbid Obesity w BMI 50.2, RA, HTN, GERD, Clinical Indicators: She hadsyncopalepisode just prior to arrival this lasted for about quite some time per family she was initially palediaphoreticand turning blue. Patient states she's been dealing with recently significantright lower extremity painhas kept her out of work is unable to walk on her right leg in the white leg turns blue with significant exertion. AGCHEST: Saddle Centralpulmonary embolusextending into the lobar, segmental and subsegmental branches with evidence of right heartstrain. RV/LV ratio of 44/20 = 2.2. VENDDLBI: Positivedeep vein thrombosis in the right popliteal vein, this: Size with the centralpulmonary embolusseen on same dayCTchest angiogram. Treatment: Ultrasound-guided right femoral vein access withplacementof bilateralthrombolytic EKOScatheters and initiation ofthrombolysis. Is there an additional diagnosis that is clinically appropriate for this patient? [ ] Pulmonary embolism with acute cor pulmonale [ ] Pulmonary embolism without acute cor pulmonale [x ] Other, please specify ___PE with Pul Hypertension___ [ ] Unable to determine MTDD
--- NOTE | 2022-07-31 20:17 | P.PN ---
Subjective Progress Note Date: 07/24/22 36-year-old female to the emergency department for evaluation by the patient presents today for evaluation of not feeling well. She had syncopal episode just prior to arrival this lasted for about quite some time per family she was initially pale diaphoretic and turning blue. Patient states she's been dealing with recently significant right lower extremity pain has kept her out of work is unable to walk on her right leg in the white leg turns blue with significant exertion. Pain on the foot is just with ambulation. Denying current chest pain or shortness of breath Workup in the ER showed bilateral saddle emboli. CT of the chest is suggestive of right ventricular strain. Echocardiogram is pending. Patient was admitted, vascular surgery was consulted for evaluation for possible ekos, cardiology was also consulted, and I was consulted for evaluating the patient. She has not been seen by vascular surgery are cardiology, patient looks comfortable clinically, however considering the clot burden noted on the CT of the chest, I'm recommending a stat echocardiogram, stat cardiology and vascular consultation consult. Patient may be an excellent candidate for ekos thrombolysis. Objective - Vital Signs Vital signs: Vital Signs Temp 98 F 07/24/22 12:00 Pulse 87 07/24/22 12:00 Resp 13 07/24/22 12:00 BP 110/70 07/24/22 12:00 Pulse Ox 94 L 07/24/22 12:00 FiO2 Intake & Output 07/23/22 07/24/22 07/24/22 18:59 06:59 18:59 Intake Total 910.310 3741 160 Output Total 350 550 500 Balance 147.138 500 -340 Weight 149.6 kg Intake: IV 125 1050 160 Alteplase 6 mg In Sodium 50 150 Chloride 0.9% 144 ml @ 1 MG/HR 25 mls/hr IV .Q6H [facility] Rx#:[id number] Heparin Sod,Pork in 0.45% 5 60 30 NaCl 25,000 unit In 0.45 % NaCl 1 250ml.bag @ 2.5 mls/hr IV .Q24H [facility] Rx#: [id number] Sodium Chloride 0.9% 1, 70 840 130 000 ml @ 35 mls/hr IV . Q24H [facility] Rx#:[id number] Intake, IV Titration 254.138 Amount Heparin Sod,Pork in 0.45% 254.138 NaCl 25,000 unit In 0.45 % NaCl 1 250ml.bag @ 15. 9454 UNITS/KG/HR 23 mls/ hr IV .[id number] [facility] Rx#: [id number] Oral 118 Output: Urine 350 550 500 Other: Voiding Method External Catheter External Catheter External Catheter # Voids 2 - Exam GENERAL: The patient is alert and oriented x3, not in any acute distress. Well developed, well nourished. HEENT: Pupils are round and equally reacting to light. EOMI. No scleral icterus. No conjunctival pallor. Normocephalic, atraumatic. No pharyngeal erythema. No thyromegaly. CARDIOVASCULAR: S1 and S2 present. No murmurs, rubs, or gallops. PULMONARY: Chest is clear to auscultation, no wheezing or crackles. ABDOMEN: Soft, nontender, nondistended, normoactive bowel sounds. No palpable organomegaly. MUSCULOSKELETAL: No joint swelling or deformity. EXTREMITIES: No cyanosis, clubbing, or pedal edema. NEUROLOGICAL: Gross neurological examination did not reveal any focal deficits. SKIN: No rashes. - Labs CBC & Chem 7: 07/25/22 03:11 07/25/22 03:11 Labs: Abnormal Lab Results - Last 24 Hours (Table) 07/23/22 07/24/22 Range/Units 12:46 04:21 APTT 52.9 H (22.0-30.0) sec Sodium 136 L (137-145) mmol/L Calcium 8.2 L (8.4-10.2) mg/dL Assessment and Plan Assessment: 1. Acute massive PE - Patient has been placed on IV heparin; stat echocardiogram is ordered with cardiology and vascular surgery on board to evaluate for right heart strain and, lysis - Patient has been evaluated by pulmonary and is recommended to discontinue control pills and possible hypercoagulable workup to determine the length of treatment with anticoagulation therapy 2. Acute DVT right lower extremity; anticoagulation and hypercoagulable workup as discussed 3. Hypertension; losartan 50 mg daily at bedtime 4. History of rheumatoid arthritis; Mobic 15 mg daily 5. Gastroesophageal reflux disease; Protonix 40 mg daily 6. Seasonal ALLERGY; loratadine 10 mg daily 5. control pill DVT prophylaxis; SCDs/IV heparin CODE STATUS; full code
== END 2022-07-25 13:15 | disposition home or self-care (01) | DRG 166 ==
LOC: EC 20:04 → 3SCARD 21:58 → 2SICU 07-23 15:57
PROVIDERS: ADMIT Hospitalist; ATTEND Hospitalist
PROC: 02FR3Z0 Fragmentation of Left Pulmonary Artery, Percutaneous Approach, Ultrasonic (ICD-10-PCS; principal; 2022-07-23 15:08)
PROC: 02FQ3Z0 Fragmentation of Right Pulmonary Artery, Percutaneous Approach, Ultrasonic (ICD-10-PCS; principal; 2022-07-23 15:08)
PROC: 3E05317 Introduction of Other Thrombolytic into Peripheral Artery, Percutaneous Approach (ICD-10-PCS; principal; 2022-07-23 15:08)
DX: I26.92 Saddle embolus of pulmonary artery without acute cor pulmonale (principal); I21.A1 Myocardial infarction type 2; I82.431 Acute embolism and thrombosis of right popliteal vein; Z68.43 Body mass index [BMI] 50.0-59.9, adult; I27.21 Secondary pulmonary arterial hypertension; E66.01 Morbid (severe) obesity due to excess calories; M06.9 Rheumatoid arthritis, unspecified; Z28.310 Unvaccinated for COVID-19; I07.1 Rheumatic tricuspid insufficiency; I10 Essential (primary) hypertension; K21.9 Gastro-esophageal reflux disease without esophagitis; I49.3 Ventricular premature depolarization; J30.2 Other seasonal allergic rhinitis; R26.2 Difficulty in walking, not elsewhere classified; Z79.3 Long term (current) use of hormonal contraceptives; Z79.1 Long term (current) use of non-steroidal anti-inflammatories (NSAID); Z79.899 Other long term (current) drug therapy
CPT/HCPCS: 36415; 37211; 71275; 76937; 80048; 80053; 80061; 83735; 83880; 84484; 85025; 85027; 85379; 85384; 85610; 85730; 93005; 93306; 93970; 94760; 96360; 96361; 99291

== ENCOUNTER → 2022-08-18 | Outpatient (CLI) | payer BC ==
[2022-08-19 10:48] LABS: Cardiolipin Ab IgG Interp Negative (Negative); Cardiolipin IgA Antibody 2.4 U/mL
[2022-08-19 10:53] LABS: Cardiolipin Ab IgM Interp Negative (Negative)
== END | disposition home or self-care (01) ==
LOC: LABWHC1 09:54
PROVIDERS: ATTEND Internal Medicine
DX: Z71.3 Dietary counseling and surveillance (principal)
CPT/HCPCS: 36415; 81241; 83090; 85300; 85307; 85384; 86147

== ENCOUNTER → 2022-08-25 | Outpatient (CLI) | payer BC | END | disposition home or self-care (01) | LOC: LABWHC1 15:25 | PROVIDERS: ATTEND Internal Medicine | DX: Z71.3 Dietary counseling and surveillance (principal) | CPT/HCPCS: 36415; 85307 ==

== ENCOUNTER → 2022-09-29 | Outpatient (CLI) | payer BC ==
[2022-09-29 16:54] LABS: Basophils # (A) 0.1 k/uL (0-0.2); Basophils % (A) 0 %; Eosinophils # (A) 0.3 k/uL (0-0.7); Eosinophils % (A) 2 %; HCT 40.1 % (34.0-46.0); HGB 13.3 gm/dL (11.4-16.0); Lymphocytes # (A) 3.4 k/uL (1.0-4.8); Lymphocytes % (A) 27 %; MCH 27.6 pg (25.0-35.0); MCHC 33.2 g/dL (31.0-37.0); MCV 83.3 fL (80.0-100.0); Monocytes # (A) 0.6 k/uL (0-1.0); Monocytes % (A) 5 %; Neutrophils % (A) 64 %; RBC 4.81 m/uL (3.80-5.40); RDW 13.6 % (11.5-15.5); WBC 12.5 k/uL (3.8-10.6)
[2022-09-29 17:02] LABS: Platelet Count 252 k/uL (150-450)
[2022-09-29 17:04] LABS: ALT 29 U/L (4-34); AST 27 U/L (14-36); African American GFR (CKD) >90 (>60 ml/min/1.73 sqM); Albumin/Globulin Ratio 1.1; Alkaline Phosphatase 116 U/L (38-126); Anion Gap 10 mmol/L; Blood Urea Nitrogen 19 mg/dL (7-17); Calcium 9.3 mg/dL (8.4-10.2); Carbon Dioxide 25 mmol/L (22-30); Chloride 103 mmol/L (98-107); Globulin 3.7 g/dL; Glucose 103 mg/dL (74-99); Non-African American GFR(CKD) >90 (>60 ml/min/1.73 sqM); Potassium 3.8 mmol/L (3.5-5.1); Sodium 138 mmol/L (137-145); Total Bilirubin 0.4 mg/dL (0.2-1.3); Total Protein 7.7 g/dL (6.3-8.2)
[2022-09-29 17:15] LABS: Creatine Kinase MB 0.9 ng/mL (0.0-3.4); Troponin I <0.012 ng/mL (0.000-0.034)
== END | disposition home or self-care (01) ==
LOC: LABWHC1 16:20
PROVIDERS: ATTEND Family Medicine
DX: R07.9 Chest pain, unspecified (principal)
CPT/HCPCS: 36415; 80053; 82553; 84484; 85025; 85379

== ENCOUNTER 2022-09-30 21:29 | Emergency (ER) | payer BC ==
[2022-09-30 21:36] VITALS: TEMP 98.3
[2022-09-30] MEDS ORDERED: KETOROLAC 15 MG/ML 1 ML VIAL IVP STA (21:55)
[2022-09-30 22:35] LABS: Basophils # (A) 0.1 k/uL (0-0.2); Basophils % (A) 1 %; Eosinophils # (A) 0.4 k/uL (0-0.7); Eosinophils % (A) 4 %; HCT 41.4 % (34.0-46.0); HGB 13.9 gm/dL (11.4-16.0); Lymphocytes # (A) 3.6 k/uL (1.0-4.8); Lymphocytes % (A) 31 %; MCH 28.1 pg (25.0-35.0); MCHC 33.5 g/dL (31.0-37.0); MCV 83.8 fL (80.0-100.0); Mean Platelet Volume 8.1; Monocytes # (A) 0.6 k/uL (0-1.0); Monocytes % (A) 5 %; Neutrophils # (A) 6.8 k/uL (1.3-7.7); Neutrophils % (A) 59 %; Platelet Count 245 k/uL (150-450); RBC 4.95 m/uL (3.80-5.40); RDW 13.8 % (11.5-15.5); WBC 11.6 k/uL (3.8-10.6)
[2022-09-30 22:52] LABS: INR 0.9 (<1.2); Partial Thromboplastin Time 24.9 sec (22.0-30.0); Prothrombin Time 9.6 sec (9.0-12.0)
[2022-09-30 22:55] LABS: Appearance,Urine Clear (Clear); Bilirubin,Urine Negative (Negative); Blood,Urine Trace (Negative); Color,Urine Yellow; Glucose,Urine (UA) Negative (Negative); Ketones,Urine Negative (Negative); Leukocyte Esterase,Urine Negative (Negative); Mucus,Urine Rare /hpf; Nitrite,Urine Negative (Negative); PH, Urine 5.5 (5.0-8.0); Protein,Urine Trace (Negative); RBC,Urine 2 /hpf (0-5); Specific Gravity,Urine 1.033 (1.001-1.035); Squamous Epithelial Cell,Urine 1 /hpf (0-4); Urobilinogen,Urine <2.0 mg/dL (<2.0); WBC,Urine 1 /hpf (0-5)
--- NOTE | 2022-09-30 23:38 | XR ---
EXAMINATION TYPE: XR chest 2V DATE OF EXAM: 09/30/2022 11:32 PM COMPARISON: Chest radiographs from 07/25/2021 TECHNIQUE: XR chest 2V Frontal and lateral views of the chest. CLINICAL INDICATION:Female, 36 years old with history of Chest Pain; FINDINGS: Lungs/Pleura: There is no evidence of pleural effusion, focal consolidation, or pneumothorax. Pulmonary vascularity: Unremarkable. Heart/mediastinum: Cardiomediastinal silhouette is unremarkable. Musculoskeletal: No acute osseous pathology. IMPRESSION: No acute cardiopulmonary disease/process.
[2022-10-01 00:47] VITALS: RESP 19
[2022-10-01 01:17] LABS: ALT 27 U/L (4-34); AST 28 U/L (14-36); African American GFR (CKD) >90 (>60 ml/min/1.73 sqM); Albumin 3.5 g/dL (3.5-5.0); Alkaline Phosphatase 102 U/L (38-126); Anion Gap 8 mmol/L; Blood Urea Nitrogen 18 mg/dL (7-17); Calcium 8.8 mg/dL (8.4-10.2); Carbon Dioxide 24 mmol/L (22-30); Chloride 106 mmol/L (98-107); Glucose 109 mg/dL (74-99); Non-African American GFR(CKD) >90 (>60 ml/min/1.73 sqM); Potassium 3.9 mmol/L (3.5-5.1); Sodium 138 mmol/L (137-145); Total Bilirubin 0.4 mg/dL (0.2-1.3); Total Protein 6.8 g/dL (6.3-8.2)
--- NOTE | 2022-10-01 02:03 | ED ---
Chest Pain HPI - General Chief Complaint: Chest Pain Stated Complaint: Chest Pressure, Shortness of Breath, PE History Time Seen by Provider: 09/30/22 21:44 Source: patient Mode of arrival: ambulatory Limitations: no limitations - History of Present Illness Initial Comments: 36-year-old female presenting with chief complaint of chest pain. Patient has h istory of pulmonary embolism 2 months ago is currently on eliquis. Patient states she has had sharp chest pain and has felt like "my heart is racing". States that she vomited once today. Admits to some shortness of breath. Denies lower extremity swelling. Denies recent surgery or travel. Pain started yesterday as just intermittent, as the day has gone on pain has remained more consistent. No alleviating or aggravating factors. No fevers or chills. No URI like symptoms. - Related Data Home Medications Medication Instructions Recorded Confirmed Loratadine [Claritin] 10 mg PO HS 07/25/21 07/22/22 Albuterol Inhaler [Ventolin Hfa 2 puff INHALATION RT-Q6H PRN 07/22/22 07/22/22 Inhaler] Pantoprazole [Protonix] 40 mg PO DAILY 07/22/22 07/22/22 Previous Rx's Medication Instructions Recorded Apixaban [Eliquis Starter Pack 5 - 10 mg PO DIRECTED 30 Days 07/25/22 (for VTE)] #1 each Allergies Allergy/AdvReac Type Severity Reaction Status Date / Time No Known Allergies Allergy Verified 07/22/22 21:43 Review of Systems ROS Statement: Those systems with pertinent positive or pertinent negative responses have been documented in the HPI. ROS Other: All systems not noted in ROS Statement are negative. EKG Findings - EKG Comments: EKG Findings:: Sinus tachycardia with frequent ventricular premature complexes. Ventricular rate 102. IA interval 143. QRS 76. QT 284. QTC 343. No ST-T deviation. Normal axis. Past Medical History Past Medical History: Deep Vein Thrombosis (DVT), Hypertension, Rheumatoid Arthritis (RA) History of Any Multi-Drug Resistant Organisms: None Reported Past Surgical History: Adenoidectomy, Tonsillectomy Past Psychological History: No Psychological Hx Reported Smoking Status: Never smoker Past Alcohol Use History: None Reported Past Drug Use History: None Reported General Exam Limitations: no limitations General appearance: alert, in no apparent distress Head exam: Present: atraumatic, normocephalic, normal inspection Eye exam: Present: normal appearance, EOMI Neck exam: Present: normal inspection, full ROM Respiratory exam: Present: normal lung sounds bilaterally, chest wall tenderness. Absent: respiratory distress, wheezes, rales, rhonchi, stridor Cardiovascular Exam: Present: regular rate, normal rhythm, normal heart sounds. Absent: systolic murmur, diastolic murmur, rubs, gallop, clicks Neurological exam: Present: alert, oriented X3, CN II-XII intact Psychiatric exam: Present: normal affect, normal mood Skin exam: Present: warm, dry, intact, normal color. Absent: rash Course Vital Signs 09/30/22 10/01/22 10/01/22 21:33 00:46 01:33 Temperature 98.3 F Pulse Rate 93 80 81 Respiratory 16 19 19 Rate Blood Pressure 179/93 149/82 O2 Sat by Pulse 98 98 97 Oximetry 10/01/22 02:27 Temperature Pulse Rate 83 Respiratory 19 Rate Blood Pressure 118/84 O2 Sat by Pulse 98 Oximetry Chest Pain MDM - MDM Was pt. sent in by a medical professional or institution (, PA, PROGRAM ADMIN, urgent care, hospital, or jail...) When possible be specific @ -No Did you speak to anyone other than the patient for history (EMS, parent, family, police, friend...)? What history was obtained from this source @ -No Did you review nursing and triage notes (agree or disagree)? Why? @ -I reviewed and agree with nursing and triage notes Were old charts reviewed (outside hosp., previous admission, EMS record, old EKG, old radiological studies, urgent care reports/EKG's, jail records)? Report findings @ -No old charts were reviewed Differential Diagnosis (chest pain, altered mental status, abdominal pain women, abdominal pain men, vaginal bleeding, weakness, fever, dyspnea, syncope, headache, dizziness, GI bleed, back pain, seizure, CVA, palpatations, mental health, musculoskeletal)? @ -MDM Differential Chest Pain: Stable Angina, Unstable Angina, STEMI, NSTEMI Aortic Dissection, Pneumothorax, Musculoskeletal, Esophageal Spasm GERD, Cholecystitis, Pancreatitis, Zoster This is not meant to be an all-inclusive list. EKG interpreted by me (3pts min.). @ -As above X-rays interpreted by me (1pt min.). @ -Chest x-ray shows no acute process CT interpreted by me (1pt min.). @ -None done U/S interpreted by me (1pt. min.). @ -None done What testing was considered but not performed or refused? (CT, X-rays, U/S, labs)? Why? @ -None What meds were considered but not given or refused? Why? @ -None Did you discuss the management of the patient with other professionals (professionals i.e. , PA, PROGRAM ADMIN, lab, RT, psych nurse, web content & social media manager, slat basket maker helper machine, teacher, amphibious operations officer, caseworker protective services)? Give summary @ -No Was smoking cessation discussed for >3mins.? @ -No Was critical care preformed (if so, how long)? @ -No Were there social determinants of health that impacted care today? How? (Homelessness, low income, unemployed, alcoholism, drug addiction, transportation, low edu. Level, literacy, decrease access to med. care, group home, rehab)? @ -No Was there de-escalation of care discussed even if they declined (Discuss DNR or withdrawal of care, Hospice)? DNR status @ -No What co-morbidities impacted this encounter? (DM, HTN, Smoking, COPD, CAD, Cancer, CVA, ARF, Chemo, Hep., AIDS, mental health diagnosis, sleep apnea, morbid obesity)? @ -None Was patient admitted / discharged? Hospital course, mention meds given and rout e, prescriptions, significant lab abnormalities, going to OR and other pertinent info. @ -36-year-old female presenting with chief complaint of sharp reproducible chest pain that started yesterday. History of pulmonary embolism 2 months ago and she is currently on eliquis. On physical examination the pain is reproducible. Laboratory shows WBC 11.6. Negative d-dimer and troponin. EKG shows no ischemic changes. Chest x-ray shows no acute process. On reassessment patient is resting in stable condition. She is educated on today's findings on supportive management at home. Follow-up with PCP. Report back to ER with any new or worsening symptoms. Discussed return parameters and answered all questions. Patient conveyed verbal understanding and agreed to the plan. I discussed this case in detail with my attending Dr. Jean Baptiste Undiagnosed new problem with uncertain prognosis? @ -No Drug Therapy requiring intensive monitoring for toxicity (Heparin, Nitro, Insulin, Cardizem)? @ -No Were any procedures done? @ -No Diagnosis/symptom? @ -Chest wall pain Acute, or Chronic, or Acute on Chronic? @ -Acute Uncomplicated (without systemic symptoms) or Complicated (systemic symptoms)? @ -Uncomplicated Side effects of treatment? @ -No Exacerbation, Progression, or Severe Exacerbation? @ -No Poses a threat to life or bodily function? How? (Chest pain, USA, MS, pneumonia, PE, COPD, DKA, ARF, appy, cholecystitis, CVA, Diverticulitis, Homicidal, Suicidal, threat to staff... and all critical care pts) @ -low likelihood Disposition Clinical Impression: Chest wall pain Disposition: HOME SELF-CARE Condition: Good Instructions (If sedation given, give patient instructions): Chest Pain (ED) Additional Instructions: Follow-up with PCP. Report back to ER with any new or worsening symptoms. Is patient prescribed a controlled substance at d/c from ED?: No Referrals: Robin Lutz DO [Primary Care Provider] - 1-2 days Time of Disposition: 02:08
[2022-10-01 02:28] VITALS: BP 118/84; PULSE 83
== END 2022-10-01 02:30 | disposition home or self-care (01) ==
LOC: EC 21:29
DX: R07.89 Other chest pain (principal); I10 Essential (primary) hypertension; Z79.01 Long term (current) use of anticoagulants; Z79.899 Other long term (current) drug therapy
CPT/HCPCS: 36415; 93005; 85379; 80053; 83735; 84484; 85025; 85610; 85730; 81001; 81025; 71046; 99285; 96374; J1885

== ENCOUNTER 2022-10-08 12:55 | Emergency (ER) | payer BC ==
--- NOTE | 2022-10-08 13:18 | ED ---
General Adult HPI - General Chief complaint: Chest Pain Stated complaint: swelling/chest pain/sob Time Seen by Provider: 10/08/22 13:05 Source: patient, RN notes reviewed, old records reviewed Mode of arrival: ambulatory Limitations: no limitations - History of Present Illness Initial comments: 36-year-old female presenting for evaluation of chest pressure. Patient has history of recent DVT and PE. She is currently on Eliquis, she states she's been compliant. She has a dry cough. No fever. She has a central chest pain and pressure. At one episode of vomiting earlier today. She does report an exertional dyspnea. - Related Data Home Medications Medication Instructions Recorded Confirmed Loratadine [Claritin] 10 mg PO DAILY 07/25/21 10/08/22 Albuterol Inhaler [Ventolin Hfa 2 puff INHALATION RT-Q6H PRN 07/22/22 10/08/22 Inhaler] Pantoprazole [Protonix] 40 mg PO DAILY 07/22/22 10/08/22 Acetaminophen Tab [Tylenol Tab] 1,000 mg PO Q6HR PRN 10/08/22 10/08/22 Apixaban [Eliquis] 5 mg PO BID 10/08/22 10/08/22 Allergies Allergy/AdvReac Type Severity Reaction Status Date / Time No Known Allergies Allergy Verified 10/08/22 15:58 Review of Systems ROS Statement: Those systems with pertinent positive or pertinent negative responses have been documented in the HPI. ROS Other: All systems not noted in ROS Statement are negative. Past Medical History Past Medical History: Deep Vein Thrombosis (DVT), Hypertension, Pulmonary Embolus (PE), Rheumatoid Arthritis (RA) History of Any Multi-Drug Resistant Organisms: None Reported Past Surgical History: Adenoidectomy, Tonsillectomy Past Psychological History: No Psychological Hx Reported Smoking Status: Never smoker Past Alcohol Use History: None Reported Past Drug Use History: None Reported General Exam Limitations: no limitations General appearance: alert, in no apparent distress Head exam: Present: atraumatic, normocephalic Eye exam: Present: normal appearance, PERRL ENT exam: Present: normal exam Neck exam: Present: normal inspection. Absent: tenderness, meningismus Respiratory exam: Present: normal lung sounds bilaterally. Absent: respiratory distress, wheezes Cardiovascular Exam: Present: regular rate, normal rhythm GI/Abdominal exam: Present: soft. Absent: distended, tenderness, guarding Neurological exam: Present: alert, oriented X3 Psychiatric exam: Present: normal affect, normal mood Skin exam: Present: warm, dry, other (Swelling in the right axilla, no induration, no drainable abscess no erythema) Course Vital Signs 10/08/22 12:56 Temperature 99.1 F Pulse Rate 92 Respiratory 20 Rate Blood Pressure 164/105 O2 Sat by Pulse 98 Oximetry Medical Decision Making - Medical Decision Making Was pt. sent in by a medical professional or institution (CORDELL Kelly, CEMENT FINISHER APPRENTICE, urgent care, hospital, or fci...) When possible be specific @ -No Did you speak to anyone other than the patient for history (EMS, parent, family, police, friend...)? What history was obtained from this source @ -No Did you review nursing and triage notes (agree or disagree)? Why? @ -I reviewed and agree with nursing and triage notes Were old charts reviewed (outside hosp., previous admission, EMS record, old EKG, old radiological studies, urgent care reports/EKG's, fci records)? Report findings @ -No old charts were reviewed Differential Diagnosis (chest pain, altered mental status, abdominal pain women, abdominal pain men, vaginal bleeding, weakness, fever, dyspnea, syncope, headache, dizziness, GI bleed, back pain, seizure, CVA, palpatations, mental health, musculoskeletal)? @ -not applicable EKG interpreted by me (3pts min.). @ -Sinus rhythm rate of 91, HI interval 134, QRS duration 80, QTC 424, no ST segment elevation. X-rays interpreted by me (1pt min.). @ -None done CT interpreted by me (1pt min.). @ -None done U/S interpreted by me (1pt. min.). @ -None done What testing was considered but not performed or refused? (CT, X-rays, U/S, labs)? Why? @ -None What meds were considered but not given or refused? Why? @ -None Did you discuss the management of the patient with other professionals (professionals i.e. CORDELL Kelly, CEMENT FINISHER APPRENTICE, lab, RT, psych nurse, social worker school, machine bander and cellophaner helper, teacher, principal gifts officer, case checker)? Give summary @ -No Was smoking cessation discussed for >3mins.? @ -No Was critical care preformed (if so, how long)? @ -No Were there social determinants of health that impacted care today? How? (Homelessness, low income, unemployed, alcoholism, drug addiction, transportation, low edu. Level, literacy, decrease access to med. care, group home, rehab)? @ -No Was there de-escalation of care discussed even if they declined (Discuss DNR or withdrawal of care, Hospice)? DNR status @ -No What co-morbidities impacted this encounter? (DM, HTN, Smoking, COPD, CAD, Cancer, CVA, ARF, Chemo, Hep., AIDS, mental health diagnosis, sleep apnea, morbid obesity)? @ -None Was patient admitted / discharged? Hospital course, mention meds given and route, prescriptions, significant lab abnormalities, going to OR and other pertinent info. @ -hospital course Undiagnosed new problem with uncertain prognosis? @ -No Drug Therapy requiring intensive monitoring for toxicity (Heparin, Nitro, Insulin, Cardizem)? @ -No Were any procedures done? @ -No Diagnosis/symptom? @ -default Acute, or Chronic, or Acute on Chronic? @ -default Uncomplicated (without systemic symptoms) or Complicated (systemic symptoms)? @ -default Side effects of treatment? @ -No Exacerbation, Progression, or Severe Exacerbation? @ -No Poses a threat to life or bodily function? How? (Chest pain, USA, DE, pneumonia, PE, COPD, DKA, ARF, appy, cholecystitis, CVA, Diverticulitis, Homicidal, Suicidal, threat to staff... and all critical care pts) @ -NoWas pt. sent in by a medical professional or institution (, PA, CEMENT FINISHER APPRENTICE, urgent care, hospital, or fci...) When possible be specific @ -No Did you speak to anyone other than the patient for history (EMS, parent, family, police, friend...)? What history was obtained from this source @ -No Did you review nursing and triage notes (agree or disagree)? Why? @ -I reviewed and agree with nursing and triage notes Were old charts reviewed (outside hosp., previous admission, EMS record, old EKG, old radiological studies, urgent care reports/EKG's, fci records)? Report findings @ -No old charts were reviewed Differential Diagnosis (chest pain, altered mental status, abdominal pain women, abdominal pain men, vaginal bleeding, weakness, fever, dyspnea, syncope, headache, dizziness, GI bleed, back pain, seizure, CVA, palpatations, mental health, musculoskeletal)? @ -Differential Chest Pain: Stable Angina, Unstable Angina, STEMI, NSTEMI Aortic Dissection, Pneumothorax, Musculoskeletal, Esophageal Spasm GERD, Cholecystitis, Pancreatitis, Zoster, this is not meant to be an all-inclusive list. EKG interpreted by me (3pts min.). @ -[As above] X-rays interpreted by me (1pt min.). @ -[None done] CT interpreted by me (1pt min.). @ -[CT angiography of the chest negative for PE or acute findings U/S interpreted by me (1pt. min.). @ Ultrasound of the right upper extremity negative for DVT What testing was considered but not performed or refused? (CT, X-rays, U/S, labs)? Why? @ -[None] What meds were considered but not given or refused? Why? @ -[None] Did you discuss the management of the patient with other professionals (professionals i.e. , PA, CEMENT FINISHER APPRENTICE, lab, RT, psych nurse, social worker school, machine bander and cellophaner helper, teacher, principal gifts officer, case checker)? Give summary @ -[No] Was smoking cessation discussed for >3mins.? @ -[No] Was critical care preformed (if so, how long)? @ -[No] Were there social determinants of health that impacted care today? How? (Homelessness, low income, unemployed, alcoholism, drug addiction, transportation, low edu. Level, literacy, decrease access to med. care, group home, rehab)? @ -[No] Was there de-escalation of care discussed even if they declined (Discuss DNR or withdrawal of care, Hospice)? DNR status @ -[No] What co-morbidities impacted this encounter? (DM, HTN, Smoking, COPD, CAD, Cancer, CVA, ARF, Chemo, Hep., AIDS, mental health diagnosis, sleep apnea, morbid obesity)? @ She had DVT and PE Was patient admitted / discharged? Hospital course, mention meds given and route, prescriptions, significant lab abnormalities, going to OR and other pertinent info. @36-year-old female presenting for evaluation of cough, chest tightness. EKG is sinus without ST segment elevation. Patient had recent saddle pulmonary embolism. She is compliant with anticoagulation. CT performed in the emergency department negative for PE at this time. She also had some swelling and pain to the right axilla, ultrasound of the right upper extremity was negative for DVT. She has normal CBC, normal CMP, negative troponin. Patient stable for discharge at this time. Undiagnosed new problem with uncertain prognosis? @ -[No] Drug Therapy requiring intensive monitoring for toxicity (Heparin, Nitro, Insulin, Cardizem)? @ -[No] Were any procedures done? @ -[No] Diagnosis/symptom? @ Chest pain Acute, or Chronic, or Acute on Chronic? @ -Acute on chronic Uncomplicated (without systemic symptoms) or Complicated (systemic symptoms)? @ -[default] Side effects of treatment? @ -[No] Exacerbation, Progression, or Severe Exacerbation? @ -[No] Poses a threat to life or bodily function? How? (Chest pain, USA, DE, pneumonia, PE, COPD, DKA, ARF, appy, cholecystitis, CVA, Diverticulitis, Homicidal, Suicidal, threat to staff... and all critical care pts) @ -[Low risk at this time - Lab Data Result diagrams: 10/08/22 13:57 10/08/22 13:57 Lab Results 10/08/22 10/08/22 10/08/22 Range/Units 13:57 13:57 13:57 WBC 9.6 (3.8-10.6) k/uL RBC 5.09 (3.80-5.40) m/uL Hgb 14.0 (11.4-16.0) gm/dL Hct 42.9 (34.0-46.0) % MCV 84.3 (80.0-100.0) fL MCH 27.5 (25.0-35.0) pg MCHC 32.6 (31.0-37.0) g/dL RDW 13.8 (11.5-15.5) % Plt Count 259 (150-450) k/uL MPV 8.4 Neutrophils % 65 % Lymphocytes % 23 % Monocytes % 5 % Eosinophils % 5 % Basophils % 0 % Neutrophils # 6.2 (1.3-7.7) k/uL Lymphocytes # 2.2 (1.0-4.8) k/uL Monocytes # 0.5 (0-1.0) k/uL Eosinophils # 0.4 (0-0.7) k/uL Basophils # 0.0 (0-0.2) k/uL PT 9.8 (9.0-12.0) sec INR 0.9 (<1.2) APTT 24.2 (22.0-30.0) sec Sodium 137 (137-145) mmol/L Potassium 3.6 (3.5-5.1) mmol/L Chloride 101 (98-107) mmol/L Carbon Dioxide 25 (22-30) mmol/L Anion Gap 11 mmol/L BUN 11 (7-17) mg/dL Creatinine 0.66 (0.52-1.04) mg/dL Est GFR (CKD-EPI)AfAm >90 (>60 ml/min/1.73 sqM) Est GFR (CKD-EPI)NonAf >90 (>60 ml/min/1.73 sqM) Glucose 120 H (74-99) mg/dL Calcium 9.1 (8.4-10.2) mg/dL Magnesium 2.0 (1.6-2.3) mg/dL Total Bilirubin 0.4 (0.2-1.3) mg/dL AST 28 (14-36) U/L ALT 33 (4-34) U/L Alkaline Phosphatase 92 (38-126) U/L Troponin I (0.000-0.034) ng/mL Total Protein 7.7 (6.3-8.2) g/dL Albumin 4.1 (3.5-5.0) g/dL Lipase 72 (23-300) U/L 10/08/22 Range/Units 13:57 WBC (3.8-10.6) k/uL RBC (3.80-5.40) m/uL Hgb (11.4-16.0) gm/dL Hct (34.0-46.0) % MCV (80.0-100.0) fL MCH (25.0-35.0) pg MCHC (31.0-37.0) g/dL RDW (11.5-15.5) % Plt Count (150-450) k/uL MPV Neutrophils % % Lymphocytes % % Monocytes % % Eosinophils % % Basophils % % Neutrophils # (1.3-7.7) k/uL Lymphocytes # (1.0-4.8) k/uL Monocytes # (0-1.0) k/uL Eosinophils # (0-0.7) k/uL Basophils # (0-0.2) k/uL PT (9.0-12.0) sec INR (<1.2) APTT (22.0-30.0) sec Sodium (137-145) mmol/L Potassium (3.5-5.1) mmol/L Chloride (98-107) mmol/L Carbon Dioxide (22-30) mmol/L Anion Gap mmol/L BUN (7-17) mg/dL Creatinine (0.52-1.04) mg/dL Est GFR (CKD-EPI)AfAm (>60 ml/min/1.73 sqM) Est GFR (CKD-EPI)NonAf (>60 ml/min/1.73 sqM) Glucose (74-99) mg/dL Calcium (8.4-10.2) mg/dL Magnesium (1.6-2.3) mg/dL Total Bilirubin (0.2-1.3) mg/dL AST (14-36) U/L ALT (4-34) U/L Alkaline Phosphatase (38-126) U/L Troponin I <0.012 (0.000-0.034) ng/mL Total Protein (6.3-8.2) g/dL Albumin (3.5-5.0) g/dL Lipase (23-300) U/L Disposition Clinical Impression: Chest pain Disposition: HOME SELF-CARE Condition: Fair Instructions (If sedation given, give patient instructions): Chest Pain (ED) Is patient prescribed a controlled substance at d/c from ED?: No Referrals: Robin Lutz DO [Primary Care Provider] - 1-2 days Time of Disposition: 16:18
[2022-10-08 14:03] LABS: Basophils % (A) 0 %; Eosinophils # (A) 0.4 k/uL (0-0.7); Eosinophils % (A) 5 %; HCT 42.9 % (34.0-46.0); Lymphocytes # (A) 2.2 k/uL (1.0-4.8); Lymphocytes % (A) 23 %; MCH 27.5 pg (25.0-35.0); MCHC 32.6 g/dL (31.0-37.0); MCV 84.3 fL (80.0-100.0); Mean Platelet Volume 8.4; Monocytes # (A) 0.5 k/uL (0-1.0); Monocytes % (A) 5 %; Neutrophils # (A) 6.2 k/uL (1.3-7.7); Neutrophils % (A) 65 %; Platelet Count 259 k/uL (150-450); RBC 5.09 m/uL (3.80-5.40); RDW 13.8 % (11.5-15.5); WBC 9.6 k/uL (3.8-10.6)
[2022-10-08 14:11] LABS: INR 0.9 (<1.2); Partial Thromboplastin Time 24.2 sec (22.0-30.0); Prothrombin Time 9.8 sec (9.0-12.0)
[2022-10-08 14:14] LABS: ALT 33 U/L (4-34); AST 28 U/L (14-36); African American GFR (CKD) >90 (>60 ml/min/1.73 sqM); Albumin 4.1 g/dL (3.5-5.0); Alkaline Phosphatase 92 U/L (38-126); Anion Gap 11 mmol/L; Blood Urea Nitrogen 11 mg/dL (7-17); Calcium 9.1 mg/dL (8.4-10.2); Carbon Dioxide 25 mmol/L (22-30); Chloride 101 mmol/L (98-107); Glucose 120 mg/dL (74-99); Lipase 72 U/L (23-300); Non-African American GFR(CKD) >90 (>60 ml/min/1.73 sqM); Potassium 3.6 mmol/L (3.5-5.1); Sodium 137 mmol/L (137-145); Total Bilirubin 0.4 mg/dL (0.2-1.3); Total Protein 7.7 g/dL (6.3-8.2)
--- NOTE | 2022-10-08 14:22 | CT ---
EXAMINATION TYPE: CT angio chest DATE OF EXAM: 10/08/2022 2:11 PM COMPARISON: 07/22/2022 HISTORY: Chest pain and SOB. Hx of PE. CT DLP: 986.8 mGycm Automated exposure control for dose reduction was used. CONTRAST: CTA scan of the thorax is performed with IV Contrast, patient injected with 69ml mL of Isovue 370, pu lmonary embolism protocol. 3-D postprocessing was performed.. FINDINGS: LUNGS: The lungs are grossly clear, there is no concerning parenchymal mass or nodule identified. T here is no pleural effusion or pneumothorax seen. The tracheobronchial tree is patent. MEDIASTINUM: There is satisfactory enhancement of the pulmonary artery and its branches, there is no CT evidence for pulmonary embolism. The pulmonary emboli seen on the prior study have resolved in e interval. There are no greater than 1 cm hilar or mediastinal lymph nodes. No pericardial effusion is seen. OTHER: No additional significant abnormality is seen. IMPRESSION: 1. NO ACUTE CARDIOPULMONARY DISEASE. 2. NO EVIDENCE OF PULMONARY EMBOLISM 3. PULMONARY EMBOLI SEEN ON THE PRIOR STUDY HAVE RESOLVED IN THE INTERVAL.
--- NOTE | 2022-10-08 15:41 | US ---
EXAMINATION TYPE: US venous doppler duplex UE RT DATE OF EXAM: 10/08/2022 COMPARISON: NONE CLINICAL INDICATION: Female, 36 years old with history of pain/swelling; rt axilla pain and swelling SIDE PERFORMED: Right Right Arm: Negative for DVT exam slightly limited due to body habitus and small vessel caliber all visualized veins were compress ible IMPRESSION: The deep venous system of the right upper extremity is patent and compressible with augmentable flow. There is no evidence of right upper extremity DVT.
[2022-10-08 16:24] VITALS: BP 153/85; PULSE 80; RESP 16; TEMP 98.7
== END 2022-10-08 16:22 | disposition home or self-care (01) ==
LOC: EC 12:55
DX: R07.89 Other chest pain (principal); I10 Essential (primary) hypertension; Z86.711 Personal history of pulmonary embolism; Z79.01 Long term (current) use of anticoagulants; Z79.899 Other long term (current) drug therapy
CPT/HCPCS: 36415; 93005; 80053; 83690; 83735; 84484; 85025; 85610; 85730; 93971; 71275; 99285; Q9967

== ENCOUNTER → 2022-10-31 | Outpatient (CLI) | payer BC ==
[2022-10-31 21:25] LABS: HCT 44.4 % (37.2-46.3); HGB 14.2 d/dL (12.0-15.0); MCH 26.6 pg (27.0-32.0); MCV 83.3 FL (80.0-97.0); Mean Platelet Volume 10.4 FL (9.5-12.2); NRBC Per 100 WBC 0 X 10*3/uL (0.00-0.01); Platelet Count 332 X 10*3/uL (140-440); RBC 5.33 X 10*6/uL (4.10-5.20); RDW 13.8 % (11.5-14.5); WBC 12.14 X 10*3/uL (4.50-10.00)
[2022-10-31 21:48] LABS: Blood Urea Nitrogen 13.6 mg/dL (9.0-27.0); Carbon Dioxide 26.3 mmol/L (21.6-31.8); Chloride 98 mmol/L (96-109); Potassium 4.6 mmol/L (3.5-5.5); Sodium 135 mmol/L (135-145)
== END | disposition home or self-care (01) ==
LOC: LABPAT 13:46
PROVIDERS: ATTEND Internal Medicine
DX: Z01.812 Encounter for preprocedural laboratory examination (principal); R07.9 Chest pain, unspecified
CPT/HCPCS: 80051; 82565; 84520; 85027

== ENCOUNTER 2022-12-31 07:57 | Emergency (ER) | payer BC ==
[2022-12-31] MEDS ORDERED: ONDANSETRON 4 MG/2 ML VIAL IVP STA ×2 (08:09→09:24)
[2022-12-31] MEDS ORDERED: SODIUM CHLORIDE 0.9% 1,000 ML IV STA (08:09)
[2022-12-31] MEDS ORDERED: FAMOTIDINE 20 MG/2 ML VIAL IV STA (08:10)
--- NOTE | 2022-12-31 08:12 | ED ---
General Adult HPI - General Chief complaint: Nausea/Vomiting/Diarrhea Stated complaint: Vomiting Time Seen by Provider: 12/31/22 08:04 Source: patient, RN notes reviewed Mode of arrival: ambulatory Limitations: no limitations - History of Present Illness Initial comments: Patient is a pleasant 37-year-old female presenting to the emergency department with concern with vomiting. Onset of symptoms was around 4 days ago. Patient is vomiting around 4 times per day. Patient has had fevers up to 101. Patient does have some abdominal discomfort left lower abdomen. No constipation or diarrhea. No urinary symptoms. Patient does have cough and nasal congestion. Patient did have a little bit of blood with her emesis this morning. Patient is on eliquis WITH history of blood clots. - Related Data Home Medications Medication Instructions Recorded Confirmed Loratadine [Claritin] 10 mg PO DAILY 07/25/21 11/11/22 Albuterol Inhaler [Ventolin Hfa 2 puff INHALATION RT-Q6H PRN 07/22/22 11/11/22 Inhaler] Pantoprazole [Protonix] 40 mg PO DAILY 07/22/22 11/11/22 Acetaminophen Tab [Tylenol] 1,000 mg PO Q6HR PRN 10/08/22 11/11/22 Apixaban [Eliquis] 5 mg PO BID 10/08/22 11/11/22 Losartan Potassium 50 mg PO DAILY 11/08/22 11/11/22 Previous Rx's Medication Instructions Recorded Metoprolol Succinate (ER) [Toprol 25 mg PO DAILY #90 tab 11/11/22 Xl] Ondansetron Odt [Zofran Odt] 4 mg PO Q8HR PRN #10 tab 12/31/22 Oseltamivir [Tamiflu] 75 mg PO Q12HR #10 cap 12/31/22 Allergies Allergy/AdvReac Type Severity Reaction Status Date / Time No Known Allergies Allergy Verified 12/31/22 08:02 Review of Systems ROS Statement: Those systems with pertinent positive or pertinent negative responses have been documented in the HPI. ROS Other: All systems not noted in ROS Statement are negative. Constitutional: Denies: fever Eyes: Denies: eye pain ENT: Reports: congestion. Denies: ear pain Respiratory: Reports: cough. Denies: dyspnea Cardiovascular: Denies: chest pain Endocrine: Reports: fatigue Gastrointestinal: Reports: abdominal pain, nausea, vomiting Musculoskeletal: Denies: back pain Past Medical History Past Medical History: Deep Vein Thrombosis (DVT), Hypertension, Pulmonary Embolus (PE), Rheumatoid Arthritis (RA) Additional Past Medical History / Comment(s): Saddle PE, DVT History of Any Multi-Drug Resistant Organisms: None Reported Past Surgical History: Adenoidectomy, Tonsillectomy Past Psychological History: No Psychological Hx Reported Smoking Status: Never smoker Past Alcohol Use History: None Reported Past Drug Use History: None Reported General Exam Limitations: no limitations General appearance: alert, in no apparent distress Head exam: Present: normocephalic Eye exam: Present: normal appearance Neck exam: Present: normal inspection. Absent: tenderness, meningismus Respiratory exam: Present: normal lung sounds bilaterally Cardiovascular Exam: Present: regular rate, normal rhythm GI/Abdominal exam: Present: soft, tenderness (Mild tenderness left lower abdomen) Extremities exam: Present: normal inspection Neurological exam: Present: alert Psychiatric exam: Present: normal affect, normal mood Skin exam: Present: normal color Course Vital Signs 12/31/22 12/31/22 12/31/22 07:59 09:36 10:49 Temperature 99.2 F 98.5 F 98.2 F Pulse Rate 89 69 71 Respiratory 22 18 18 Rate Blood Pressure 154/99 138/82 144/84 O2 Sat by Pulse 96 99 Oximetry Medical Decision Making - Medical Decision Making Was pt. sent in by a medical professional or institution (CORDELL Kelly, ED EDUCATIONAL AIDE, urgent care, hospital, or fpc...) When possible be specific @ -No Did you speak to anyone other than the patient for history (EMS, parent, family, police, friend...)? What history was obtained from this source @ -Family is present and helps provide history including onset Did you review nursing and triage notes (agree or disagree)? Why? @ -I reviewed and agree with nursing and triage notes Were old charts reviewed (outside hosp., previous admission, EMS record, old EKG, old radiological studies, urgent care reports/EKG's, fpc records)? Report findings @ -No old charts were reviewed Differential Diagnosis (chest pain, altered mental status, abdominal pain women, abdominal pain men, vaginal bleeding, weakness, fever, dyspnea, syncope, headache, dizziness, GI bleed, back pain, seizure, CVA, palpatations, mental h ealth, musculoskeletal)? @ -Differential Abdominal Pain Women: Appendicitis, Cholecystitis, diverticulosis, ischemic bowel, pancreatitis, hepatitis, UTI, gastroenteritis, AAA, incarcerated hernia, bowel obstruction, constipation, inflammatory bowel, hepatitis, peptic ulcer disease, splenic infarction, perforated viscus, vulvitis, ovarian torsion, PID, kidney stone, placenta abruption, this is not meant to be an all-inclusive list EKG interpreted by me (3pts min.). @ -As above X-rays interpreted by me (1pt min.). @ -Chest x-ray shows no acute process CT interpreted by me (1pt min.). @ -Report reviewed. Patient updated. U/S interpreted by me (1pt. min.). @ -None done What testing was considered but not performed or refused? (CT, X-rays, U/S, labs)? Why? @ -None What meds were considered but not given or refused? Why? @ -None Did you discuss the management of the patient with other professionals (professionals i.e. , PA, ED EDUCATIONAL AIDE, lab, RT, psych nurse, social insurance analyst, ship's pilot, teacher, financial compliance officer, telephonic case manager)? Give summary @ -No Was smoking cessation discussed for >3mins.? @ -No Was critical care preformed (if so, how long)? @ -No Were there social determinants of health that impacted care today? How? (Homelessness, low income, unemployed, alcoholism, drug addiction, transportation, low edu. Level, literacy, decrease access to med. care, [facility], rehab)? @ -No Was there de-escalation of care discussed even if they declined (Discuss DNR or withdrawal of care, Hospice)? DNR status @ -No What co-morbidities impacted this encounter? (DM, HTN, Smoking, COPD, CAD, Cancer, CVA, ARF, Chemo, Hep., AIDS, mental health diagnosis, sleep apnea, morbid obesity)? @ -None Was patient admitted / discharged? Hospital course, mention meds given and route, prescriptions, significant lab abnormalities, going to OR and other pertinent info. @ -Patient reevaluated and feeling better with medication. Patient and family updated on results. Patient offered Tamiflu and would like this. Patient also prescribed Zofran for nausea. Patient advised close follow-up including follow- up regarding computed tomography scan and further testing of the pancreas. Patient denies to return if vomiting blood Undiagnosed new problem with uncertain prognosis? @ -No Drug Therapy requiring intensive monitoring for toxicity (Heparin, Nitro, Insulin, Cardizem)? @ -No Were any procedures done? @ -No Diagnosis/symptom? @ -Influenza, vomiting Acute, or Chronic, or Acute on Chronic? @ -Acute, acute Uncomplicated (without systemic symptoms) or Complicated (systemic symptoms)? @ -default Side effects of treatment? @ -No Exacerbation, Progression, or Severe Exacerbation? @ -No Poses a threat to life or bodily function? How? (Chest pain, USA, OR, pneumonia, PE, COPD, DKA, ARF, appy, cholecystitis, CVA, Diverticulitis, Homicidal, Suicidal, threat to staff... and all critical care pts) @ -No - Lab Data Result diagrams: 12/31/22 08:13 12/31/22 08:13 Lab Results 12/31/22 12/31/22 12/31/22 Range/Units 08:13 08:13 08:13 WBC 4.3 (3.8-10.6) k/uL RBC 5.13 (3.80-5.40) m/uL Hgb 14.3 (11.4-16.0) gm/dL Hct 41.9 (34.0-46.0) % MCV 81.7 (80.0-100.0) fL MCH 27.9 (25.0-35.0) pg MCHC 34.2 (31.0-37.0) g/dL RDW 13.4 (11.5-15.5) % Plt Count 232 (150-450) k/uL MPV 8.0 Neutrophils % 53 % Lymphocytes % 34 % Monocytes % 10 % Eosinophils % 1 % Basophils % 0 % Neutrophils # 2.3 (1.3-7.7) k/uL Lymphocytes # 1.5 (1.0-4.8) k/uL Monocytes # 0.4 (0-1.0) k/uL Eosinophils # 0.0 (0-0.7) k/uL Basophils # 0.0 (0-0.2) k/uL PT 10.6 (10.0-12.5) sec INR 1.0 (<1.2) APTT 28.3 (22.0-30.0) sec Sodium (137-145) mmol/L Potassium (3.5-5.1) mmol/L Chloride (98-107) mmol/L Carbon Dioxide (22-30) mmol/L Anion Gap mmol/L BUN (7-17) mg/dL Creatinine (0.52-1.04) mg/dL Est GFR (CKD-EPI)AfAm (>60 ml/min/1.73 sqM) Est GFR (CKD-EPI)NonAf (>60 ml/min/1.73 sqM) Glucose (74-99) mg/dL Calcium (8.4-10.2) mg/dL Total Bilirubin (0.2-1.3) mg/dL AST (14-36) U/L ALT (4-34) U/L Alkaline Phosphatase (38-126) U/L Total Protein (6.3-8.2) g/dL Albumin (3.5-5.0) g/dL Amylase (30-110) U/L Lipase (23-300) U/L Urine Color Yellow Urine Appearance Clear (Clear) Urine pH 6.5 (5.0-8.0) Ur Specific [place] >1.050 H (1.001-1.035) Urine Protein Trace H (Negative) Urine Glucose (UA) Negative (Negative) Urine Ketones 1+ H (Negative) Urine Blood Negative (Negative) Urine Nitrite Negative (Negative) Urine Bilirubin Negative (Negative) Urine Urobilinogen 2.0 (<2.0) mg/dL Ur Leukocyte Esterase Negative (Negative) Influenza Type A (PCR) (Not Detectd) Influenza Type B (PCR) (Not Detectd) RSV (PCR) (Not Detectd) SARS-CoV-2 (PCR) (Not Detectd) 12/31/22 12/31/22 Range/Units 08:13 08:13 WBC (3.8-10.6) k/uL RBC (3.80-5.40) m/uL Hgb (11.4-16.0) gm/dL Hct (34.0-46.0) % MCV (80.0-100.0) fL MCH (25.0-35.0) pg MCHC (31.0-37.0) g/dL RDW (11.5-15.5) % Plt Count (150-450) k/uL MPV Neutrophils % % Lymphocytes % % Monocytes % % Eosinophils % % Basophils % % Neutrophils # (1.3-7.7) k/uL Lymphocytes # (1.0-4.8) k/uL Monocytes # (0-1.0) k/uL Eosinophils # (0-0.7) k/uL Basophils # (0-0.2) k/uL PT (10.0-12.5) sec INR (<1.2) APTT (22.0-30.0) sec Sodium 137 (137-145) mmol/L Potassium 3.7 (3.5-5.1) mmol/L Chloride 100 (98-107) mmol/L Carbon Dioxide 25 (22-30) mmol/L Anion Gap 12 mmol/L BUN 10 (7-17) mg/dL Creatinine 0.69 (0.52-1.04) mg/dL Est GFR (CKD-EPI)AfAm >90 (>60 ml/min/1.73 sqM) Est GFR (CKD-EPI)NonAf >90 (>60 ml/min/1.73 sqM) Glucose 118 H (74-99) mg/dL Calcium 8.9 (8.4-10.2) mg/dL Total Bilirubin 0.5 (0.2-1.3) mg/dL AST 31 (14-36) U/L ALT 27 (4-34) U/L Alkaline Phosphatase 90 (38-126) U/L Total Protein 7.6 (6.3-8.2) g/dL Albumin 4.1 (3.5-5.0) g/dL Amylase 41 (30-110) U/L Lipase 96 (23-300) U/L Urine Color Urine Appearance (Clear) Urine pH (5.0-8.0) Ur Specific [place] (1.001-1.035) Urine Protein (Negative) Urine Glucose (UA) (Negative) Urine Ketones (Negative) Urine Blood (Negative) Urine Nitrite (Negative) Urine Bilirubin (Negative) Urine Urobilinogen (<2.0) mg/dL Ur Leukocyte Esterase (Negative) Influenza Type A (PCR) Detected A (Not Detectd) Influenza Type B (PCR) Not Detected (Not Detectd) RSV (PCR) Not Detected (Not Detectd) SARS-CoV-2 (PCR) Not Detected (Not Detectd) Disposition Clinical Impression: Vomiting, Influenza Disposition: HOME SELF-CARE Condition: Stable Instructions (If sedation given, give patient instructions): Acute Nausea and Vomiting (ED) Additional Instructions: Prescription has been sent to pharmacy, must be started today. Prescription for nausea medicine also provided. Continue your stomach medication, Protonix. Please follow-up with primary care physician in the next day or 2 for recheck. Have primary care physician review computed tomography scan done today and schedule further testing. Return for uncontrolled fevers, not tolerating fluids, pain, vomiting blood, worsening symptoms or any other concerns. Prescriptions: Oseltamivir [Tamiflu] 75 mg PO Q12HR #10 cap Ondansetron Odt [Zofran Odt] 4 mg PO Q8HR PRN #10 tab PRN Reason: Nausea Is patient prescribed a controlled substance at d/c from ED?: No Referrals: Robin Lutz DO [Primary Care Provider] - 1-2 days Time of Disposition: 11:15
[2022-12-31 08:24] LABS: Basophils % (A) 0 %; Eosinophils % (A) 1 %; HCT 41.9 % (34.0-46.0); HGB 14.3 gm/dL (11.4-16.0); Lymphocytes # (A) 1.5 k/uL (1.0-4.8); Lymphocytes % (A) 34 %; MCH 27.9 pg (25.0-35.0); MCHC 34.2 g/dL (31.0-37.0); MCV 81.7 fL (80.0-100.0); Monocytes # (A) 0.4 k/uL (0-1.0); Monocytes % (A) 10 %; Neutrophils # (A) 2.3 k/uL (1.3-7.7); Neutrophils % (A) 53 %; Platelet Count 232 k/uL (150-450); RBC 5.13 m/uL (3.80-5.40); RDW 13.4 % (11.5-15.5); WBC 4.3 k/uL (3.8-10.6)
[2022-12-31] MEDS ORDERED: ACETAMINOPHEN IV (For NPO) 1,000 MG in EMPTY BAG 1 BAG IVPB ONE (08:30)
[2022-12-31 08:33] LABS: Partial Thromboplastin Time 28.3 sec (22.0-30.0); Prothrombin Time 10.6 sec (10.0-12.5)
[2022-12-31 08:45] LABS: ALT 27 U/L (4-34); AST 31 U/L (14-36); African American GFR (CKD) >90 (>60 ml/min/1.73 sqM); Albumin 4.1 g/dL (3.5-5.0); Alkaline Phosphatase 90 U/L (38-126); Amylase 41 U/L (30-110); Anion Gap 12 mmol/L; Blood Urea Nitrogen 10 mg/dL (7-17); Calcium 8.9 mg/dL (8.4-10.2); Carbon Dioxide 25 mmol/L (22-30); Chloride 100 mmol/L (98-107); Glucose 118 mg/dL (74-99); Lipase 96 U/L (23-300); Non-African American GFR(CKD) >90 (>60 ml/min/1.73 sqM); Potassium 3.7 mmol/L (3.5-5.1); Sodium 137 mmol/L (137-145); Total Bilirubin 0.5 mg/dL (0.2-1.3); Total Protein 7.6 g/dL (6.3-8.2)
--- NOTE | 2022-12-31 09:12 | CT ---
EXAMINATION TYPE: CT abdomen pelvis w con DATE OF EXAM: 12/31/2022 COMPARISON: NONE HISTORY: 37-year-old female Abdominal pain TECHNIQUE: Contiguous axial scanning of the abdomen and pelvis following administration of 100 ml Iso yamini 300 IV contrast. Delayed images through the kidneys and coronal/sagittal reconstructions perform ed. CT DLP: 2645.4 mGycm Automated exposure control for dose reduction was used. FINDINGS: Heart normal size with trace basilar pericardial fluid. Lung bases clear without pleural effusion. Tiny hiatal hernia. The liver is borderline enlarged at 17.5 cm. Mildly diminished attenuation of the liver parenchyma. P ortal venous system is patent. No biliary ductal dilatation. Gallbladder and adrenal glands within normal limits. There is delayed excretion of contrast from the kidneys and the delayed scan. Spleen borderline enlarged at 13.5 cm. There is focal atrophy of the tail of the pancreas but no discrete pancreatic lesion identified. No dilated small bowel, free fluid, or free air. No mesenteric or retroperitoneal lymphadenopathy. Normal appendix. Sigmoid diverticulosis. No pericolonic inflammatory change. Bladder is collapsed. Uterus is anteverted. Both ovaries are visualized. No abnormal fluid collection in the pelvis or pelvic lymphadenopathy. Bones: Facet arthropathy lower lumbar spine. Mild to moderate degenerative disc disease lower thoraci c spine. Mild degenerative disc disease L5-S1. IMPRESSION: 1. Borderline hepatomegaly at 17.5 cm. Underlying mild fatty infiltration. 2. No excretion of contrast from the kidneys may be due to early timing of the delayed scan. Correlat e with BUN/Cr to exclude acute kidney injury. 3. Isolated atrophy of the pancreatic tail but no discrete pancreatic lesion identified. Correlate wi th CA-19-9 levels and 3-6 month follow-up pancreas MRI to reassess. 4. Sigmoid diverticulosis without acute diverticulitis.
--- NOTE | 2022-12-31 09:13 | XR ---
EXAMINATION TYPE: XR chest 2V DATE OF EXAM: 12/31/2022 COMPARISON: 09/30/2022 HISTORY: 37-year-old female with abdominal pain TECHNIQUE: PA and lateral views FINDINGS: Heart upper limits of normal in size. Interstitial prominence has a chronic appearance. No consolidat ion or pleural effusion seen. IMPRESSION: No definite acute cardiopulmonary process.
[2022-12-31 09:48] VITALS: RESP 18
[2022-12-31 09:53] LABS: Appearance,Urine Clear (Clear); Bilirubin,Urine Negative (Negative); Blood,Urine Negative (Negative); Color,Urine Yellow; Glucose,Urine (UA) Negative (Negative); Ketones,Urine 1+ (Negative); Leukocyte Esterase,Urine Negative (Negative); Nitrite,Urine Negative (Negative); PH, Urine 6.5 (5.0-8.0); Protein,Urine Trace (Negative)
[2022-12-31 10:07] LABS: Specific Gravity,Urine >1.050 (1.001-1.035)
[2022-12-31] MEDS ORDERED: METOCLOPRAMIDE 5 MG/ML 2 ML VIAL IVP STA (10:29)
[2022-12-31 10:59] VITALS: BP 144/84; PULSE 71; TEMP 98.2
== END 2022-12-31 10:55 | disposition home or self-care (01) ==
LOC: EC 07:57
DX: R11.2 Nausea with vomiting, unspecified (principal); J11.1 Influenza due to unidentified influenza virus with other respiratory manifestations; B95.0 Streptococcus, group A, as the cause of diseases classified elsewhere; I10 Essential (primary) hypertension; M06.9 Rheumatoid arthritis, unspecified; Z86.718 Personal history of other venous thrombosis and embolism; Z79.01 Long term (current) use of anticoagulants; Z79.899 Other long term (current) drug therapy; Z20.822 Contact with and (suspected) exposure to COVID-19
CPT/HCPCS: 36415; 80053; 82150; 83690; 85025; 85610; 85730; 81003; 87636; 71046; 74177; 99284; 96374; 96375 ×3; 96376; 96361; J2765; J2405; J3490; J0131; Q9967

== ENCOUNTER 2023-01-24 17:44 | Emergency (ER) | payer BC ==
[2023-01-24 18:06] VITALS: TEMP 97.9
--- NOTE | 2023-01-24 18:22 | ED ---
Neuro HPI - General Chief Complaint: Neuro Symptoms/Deficit Stated Complaint: L Face Numbness,Chest Pain Time Seen by Provider: 01/24/23 18:00 Source: patient, RN notes reviewed, old records reviewed Mode of arrival: ambulatory Limitations: no limitations - History of Present Illness Is the patient presenting with stroke symptoms?: Yes -: minutes(s), days(s) Initial Comments: This is a 37-year-old female to the emergency department for evaluation of left- sided facial numbness and swelling. Patient had symptoms that began yesterday left-sided face and now with right arm paresthesias. Patient concerned when she began to appear seizures in the right arm and some significant going on for significant in her normal turgor arousable left side of her face. Documented injury no headaches no other complaints Location: left face, right arm History of same: No Place: home Severity: mild Quality: weak, numb, tingling Improves With: none Worsens With: none Context: gradual onset Associated Symptoms: denies other symptoms - Related Data Home Medications: Home Medications Medication Instructions Recorded Confirmed Albuterol Inhaler [Ventolin Hfa 2 puff INHALATION RT-Q6H PRN 07/22/22 01/24/23 Inhaler] Pantoprazole [Protonix] 40 mg PO DAILY 07/22/22 01/24/23 Acetaminophen Tab [Tylenol] 1,000 mg PO Q6HR PRN 10/08/22 01/24/23 Apixaban [Eliquis] 5 mg PO BID 10/08/22 01/24/23 Losartan Potassium 50 mg PO DAILY 11/08/22 01/24/23 Prochlorperazine [Compazine] 5 mg PO BID PRN 01/24/23 01/24/23 Previous Rx's Medication Instructions Recorded Metoprolol Succinate (ER) [Toprol 25 mg PO DAILY #90 tab 11/11/22 Xl] Allergies/Adverse Reactions: Allergies Allergy/AdvReac Type Severity Reaction Status Date / Time No Known Allergies Allergy Verified 01/24/23 20:12 Review of Systems ROS Statement: Those systems with pertinent positive or pertinent negative responses have been documented in the HPI. ROS Other: All systems not noted in ROS Statement are negative. General Exam Limitations: no limitations General appearance: alert, in no apparent distress, anxious Head exam: Present: atraumatic, normocephalic, normal inspection Eye exam: Present: normal appearance, PERRL, EOMI. Absent: scleral icterus, conjunctival injection, periorbital swelling ENT exam: Present: normal exam, mucous membranes moist Neck exam: Present: normal inspection. Absent: tenderness, meningismus, lymphadenopathy Respiratory exam: Present: normal lung sounds bilaterally. Absent: respiratory distress, wheezes, rales, rhonchi, stridor Cardiovascular Exam: Present: regular rate, normal rhythm, normal heart sounds. Absent: systolic murmur, diastolic murmur, rubs, gallop, clicks GI/Abdominal exam: Present: soft, normal bowel sounds. Absent: distended, tenderness, guarding, rebound, rigid Extremities exam: Present: normal inspection, full ROM, normal capillary refill. Absent: tenderness, pedal edema, joint swelling, calf tenderness Back exam: Present: normal inspection Neurological exam: Present: alert, oriented X3, CN II-XII intact Psychiatric exam: Present: normal affect, normal mood Skin exam: Present: warm, dry, intact, normal color. Absent: rash Stroke MDM - Lab Data Result diagrams: 01/24/23 18:32 01/24/23 18:32 Lab Results 01/24/23 01/24/23 01/24/23 Range/Units 18:32 18:32 18:32 WBC 10.5 (3.8-10.6) k/uL RBC 4.93 (3.80-5.40) m/uL Hgb 13.8 (11.4-16.0) gm/dL Hct 41.9 (34.0-46.0) % MCV 85.1 (80.0-100.0) fL MCH 28.0 (25.0-35.0) pg MCHC 32.9 (31.0-37.0) g/dL RDW 14.1 (11.5-15.5) % Plt Count 251 (150-450) k/uL MPV 7.7 Neutrophils % 67 % Lymphocytes % 25 % Monocytes % 4 % Eosinophils % 3 % Basophils % 0 % Neutrophils # 7.0 (1.3-7.7) k/uL Lymphocytes # 2.6 (1.0-4.8) k/uL Monocytes # 0.5 (0-1.0) k/uL Eosinophils # 0.3 (0-0.7) k/uL Basophils # 0.0 (0-0.2) k/uL PT 9.7 L (10.0-12.5) sec INR 0.9 (<1.2) APTT 27.5 (22.0-30.0) sec Sodium 139 (137-145) mmol/L Potassium 4.1 (3.5-5.1) mmol/L Chloride 103 (98-107) mmol/L Carbon Dioxide 25 (22-30) mmol/L Anion Gap 11 mmol/L BUN 10 (7-17) mg/dL Creatinine 0.58 (0.52-1.04) mg/dL Est GFR (CKD-EPI)AfAm >90 (>60 ml/min/1.73 sqM) Est GFR (CKD-EPI)NonAf >90 (>60 ml/min/1.73 sqM) Glucose 95 (74-99) mg/dL Calcium 8.7 (8.4-10.2) mg/dL Phosphorus 3.4 (2.5-4.5) mg/dL Magnesium 2.0 (1.6-2.3) mg/dL Total Bilirubin 0.3 (0.2-1.3) mg/dL AST 21 (14-36) U/L ALT 23 (4-34) U/L Alkaline Phosphatase 112 (38-126) U/L Troponin I (0.000-0.034) ng/mL Total Protein 6.9 (6.3-8.2) g/dL Albumin 3.7 (3.5-5.0) g/dL 01/24/23 Range/Units 18:32 WBC (3.8-10.6) k/uL RBC (3.80-5.40) m/uL Hgb (11.4-16.0) gm/dL Hct (34.0-46.0) % MCV (80.0-100.0) fL MCH (25.0-35.0) pg MCHC (31.0-37.0) g/dL RDW (11.5-15.5) % Plt Count (150-450) k/uL MPV Neutrophils % % Lymphocytes % % Monocytes % % Eosinophils % % Basophils % % Neutrophils # (1.3-7.7) k/uL Lymphocytes # (1.0-4.8) k/uL Monocytes # (0-1.0) k/uL Eosinophils # (0-0.7) k/uL Basophils # (0-0.2) k/uL PT (10.0-12.5) sec INR (<1.2) APTT (22.0-30.0) sec Sodium (137-145) mmol/L Potassium (3.5-5.1) mmol/L Chloride (98-107) mmol/L Carbon Dioxide (22-30) mmol/L Anion Gap mmol/L BUN (7-17) mg/dL Creatinine (0.52-1.04) mg/dL Est GFR (CKD-EPI)AfAm (>60 ml/min/1.73 sqM) Est GFR (CKD-EPI)NonAf (>60 ml/min/1.73 sqM) Glucose (74-99) mg/dL Calcium (8.4-10.2) mg/dL Phosphorus (2.5-4.5) mg/dL Magnesium (1.6-2.3) mg/dL Total Bilirubin (0.2-1.3) mg/dL AST (14-36) U/L ALT (4-34) U/L Alkaline Phosphatase (38-126) U/L Troponin I <0.012 (0.000-0.034) ng/mL Total Protein (6.3-8.2) g/dL Albumin (3.5-5.0) g/dL - NIH Stroke Scale 1a. Level of Consciousness: (0) alert 1b. LOC Questions: (0) answers correctly 1c. LOC Commands: (0) performs tasks correctly 2. Best Gaze: (0) normal 3. Visual: (0) no visual loss 4. Facial Palsy: (0) normal symmetrical movement 5a. Motor Arm Left: (0) no drift 5b. Motor Arm Right: (0) no drift 6a. Motor Leg Left: (0) no drift 7. Limb Ataxia: (0) absent 8. Sensory: (0) normal 9. Best Language: (0) no aphasia 10. Dysarthria: (0) normal 11. Extinction/Inattention: (0) no abnormality - Medical Decision Making 37 female to the emergency department for evaluation of right facial swelling, left arm. Seizures and concern for possible CVA. Patient is no acute findings here in the ER, patient can be discharged home - Radiology Data Radiology results: report reviewed (CT brain CT had neck chest x-rays negative for acute disease), image reviewed - EKG Data -: EKG Interpreted by Me (EKG is sinus 83 UT 144 QRS 84 QTc 417) Past Medical History Past Medical History: Deep Vein Thrombosis (DVT), Hypertension, Pulmonary Embolus (PE), Rheumatoid Arthritis (RA) Additional Past Medical History / Comment(s): Saddle PE, DVT, PVCS History of Any Multi-Drug Resistant Organisms: None Reported Past Surgical History: Adenoidectomy, Tonsillectomy Past Psychological History: No Psychological Hx Reported Smoking Status: Never smoker Past Alcohol Use History: None Reported Past Drug Use History: None Reported Course Vital Signs 01/24/23 01/24/23 17:51 20:45 Temperature 97.9 F Pulse Rate 89 85 Respiratory 18 20 Rate Blood Pressure 143/79 123/84 O2 Sat by Pulse 99 98 Oximetry - Reevaluation(s) Reevaluation #1: Medical record is reviewed Reevaluation #2: Patient symptoms are improved Reevaluation #3: Informed results and questions are answered Reevaluation #4: Was pt. sent in by a medical professional or institution (, PA, CAREER SERVICES OFFICER, urgent care, hospital, or retirement...) When possible be specific @ -no Did you speak to anyone other than the patient for history (EMS, parent, family, police, friend...)? What history was obtained from this source @ -no Did you review nursing and triage notes (agree or disagree)? Why? @ -agree Are old charts reviewed (outside hosp., previous admission, EMS record, old EKG, old radiological studies, urgent care reports/EKG's, retirement records)? Report findings @ -yes Differential Diagnosis (chest pain, altered mental status, abdominal pain women, abdominal pain men, vaginal bleeding, weakness, fever, dyspnea, syncope, headache, dizziness, GI bleed, back pain, seizure, CVA, palpatations, mental health, musculoskeletal)? @ -prior EKG interpreted by me (3pts min.). @ -yes X-rays interpreted by me (1pt min.). @ -yes negative for acute disease CT interpreted by me (1pt min.). @ -y negative for acute diseasees U/S interpreted by me (1pt. min.). @ -no What testing was considered but not performed or refused? (CT, X-rays, U/S, labs)? Why? @ -none What meds were considered but not given or refused? Why? @ -none Did you discuss the management of the patient with other professionals (professionals i.e. , PA, CAREER SERVICES OFFICER, lab, RT, psych nurse, social media strategist, die sinking machine operator, teacher, artillery officer, bilingual case manager)? Give summary @ -no Was smoking cessation discussed for >3mins.? @ -no Was critical care preformed (if so, how long)? @ -no Were there social determinants of health that impacted care today? How? (Homelessness, low income, unemployed, alcoholism, drug addiction, transportation, low edu. Level, literacy, decrease access to med. care, [facility] [facility], rehab)? @ -none Was there de-escalation of care discussed even if they declined (Discuss DNR or withdrawal of care, Hospice)? DNR status @ -no What co-morbidities impacted this encounter? (DM, HTN, Smoking, COPD, CAD, Cancer, CVA, ARF, Chemo, Hep., AIDS, mental health diagnosis, sleep apnea, morbid obesity)? @ -none Was patient admitted / discharged? Hospital course, mention meds given and route, prescriptions, significant lab abnormalities, going to OR and other pertinent info. @ - 37 female to the emergency department for evaluation of right facial swelling, left arm. Seizures and concern for possible CVA. Patient is no acute findings here in the ER, patient can be discharged home Discharge Undiagnosed new problem with uncertain prognosis? @ -no Drug Therapy requiring intensive monitoring for toxicity (Heparin, Nitro, Insulin, Cardizem)? @ -no Were any procedures done? @ -no Diagnosis/symptom? @ -Facial numbness and paresthesia Acute, or Chronic, or Acute on Chronic? @ -Acute Uncomplicated (without systemic symptoms) or Complicated (systemic symptoms)? @ -Complicated Side effects of treatment? @ -no Exacerbation, Progression, or Severe Exacerbation? @ -exacerbation Poses a threat to life or bodily function? How? (Chest pain, [place], NH, pneumonia, PE, COPD, DKA, ARF, appy, cholecystitis, CVA, Diverticulitis, Homicidal, Suicidal, threat to staff... and all critical care pts) @ -yes possible CVA Reevaluation #5: Differential CVA Ischemic stroke, hemorrhagic stroke, brain tumor, atypical migraine, Wernicke's encephalopathy, seizure, multiple sclerosis, meningitis, encephalitis, hypoglycemia, Guillain-Cardoza, electrolytes disturbance, myasthenia gravis.... This is not meant to be an all-inclusive list Disposition Clinical Impression: Swelling of left side of face, Arm paresthesia, right, Weakness Disposition: HOME SELF-CARE Condition: Good Instructions (If sedation given, give patient instructions): Trigeminal Neuralgia (ED), Paresthesia (ED) Is patient prescribed a controlled substance at d/c from ED?: No Referrals: Robin Lutz DO [Primary Care Provider] - 1-2 days Time of Disposition: 20:30
[2023-01-24 18:47] LABS: Basophils % (A) 0 %; Eosinophils # (A) 0.3 k/uL (0-0.7); Eosinophils % (A) 3 %; HCT 41.9 % (34.0-46.0); HGB 13.8 gm/dL (11.4-16.0); Lymphocytes # (A) 2.6 k/uL (1.0-4.8); Lymphocytes % (A) 25 %; MCHC 32.9 g/dL (31.0-37.0); MCV 85.1 fL (80.0-100.0); Mean Platelet Volume 7.7; Monocytes # (A) 0.5 k/uL (0-1.0); Monocytes % (A) 4 %; Neutrophils % (A) 67 %; Platelet Count 251 k/uL (150-450); RBC 4.93 m/uL (3.80-5.40); RDW 14.1 % (11.5-15.5); WBC 10.5 k/uL (3.8-10.6)
[2023-01-24 18:59] LABS: INR 0.9 (<1.2)
[2023-01-24 19:00] LABS: Partial Thromboplastin Time 27.5 sec (22.0-30.0); Prothrombin Time 9.7 sec (10.0-12.5)
--- NOTE | 2023-01-24 19:09 | XR ---
EXAMINATION TYPE: XR chest 2V DATE OF EXAM: 01/24/2023 6:50 PM CLINICAL INDICATION:Female, 37 years old with history of Weakness; COMPARISON: Chest radiographs from 12/31/2022 TECHNIQUE: XR chest 2V Frontal and lateral views of the chest. FINDINGS: Lungs/Pleura: There is no evidence of pleural effusion, focal consolidation, or pneumothorax. Pulmonary vascularity: Unremarkable. Heart/mediastinum: Cardiomediastinal silhouette is unremarkable. Musculoskeletal: No acute osseous pathology. IMPRESSION: Low lung volumes with a generalized hazy appearance which could represent atelectasis
--- NOTE | 2023-01-24 19:12 | CT ---
EXAMINATION TYPE: CT brain wo con CT DLP: 2124.6 mGycm, Automated exposure control for dose reduction was used. DATE OF EXAM: 01/24/2023 6:53 PM COMPARISON: None. CLINICAL INDICATION:Female, 37 years old with history of cva, Left side facial numbness and dizziness since yesterday. TECHNIQUE: Brain: Axial CT images of the brain were obtained with coronal and sagittal reformats created and rev iewed. Contrast used: None. Oral contrast used: None. FINDINGS: Brain: Extra-axial spaces: No abnormal extra-axial fluid collections. Ventricular system: Within normal limits Cerebral parenchyma: No acute intraparenchymal hemorrhage or mass effect. The berkowitz-white junction is well differentiated. Cerebellum: Unremarkable. Mass effect: No evidence of midline shift. Intracranial vasculature: unremarkable Soft tissues: Normal. Calvarium/osseous structures: No depressed skull fracture. Paranasal sinuses and mastoid air cells: Mild scattered paranasal sinus disease. Visualized orbits: Orbital contents are intact. IMPRESSION: No acute intracranial process.
[2023-01-24 19:15] LABS: ALT 23 U/L (4-34); AST 21 U/L (14-36); African American GFR (CKD) >90 (>60 ml/min/1.73 sqM); Albumin 3.7 g/dL (3.5-5.0); Alkaline Phosphatase 112 U/L (38-126); Anion Gap 11 mmol/L; Blood Urea Nitrogen 10 mg/dL (7-17); Calcium 8.7 mg/dL (8.4-10.2); Carbon Dioxide 25 mmol/L (22-30); Chloride 103 mmol/L (98-107); Glucose 95 mg/dL (74-99); Non-African American GFR(CKD) >90 (>60 ml/min/1.73 sqM); Phosphorus 3.4 mg/dL (2.5-4.5); Potassium 4.1 mmol/L (3.5-5.1); Sodium 139 mmol/L (137-145); Total Bilirubin 0.3 mg/dL (0.2-1.3); Total Protein 6.9 g/dL (6.3-8.2)
--- NOTE | 2023-01-24 19:24 | CT ---
EXAMINATION TYPE: CT angio head neck CT DLP: 2124.6 mGycm, Automated exposure control for dose reduction was used. DATE OF EXAM: 01/24/2023 7:08 PM COMPARISON: None. CLINICAL INDICATION:Female, 37 years old with history of cva; PHH, Left side facial numbness and dizz iness since yesterday. TECHNIQUE: Axially acquired helical CT angiogram of the head and neck was obtained with contrast. Axi al images are supplemented with 3D reconstructions and MIP images which were post-processed at an in dependent workstation. NASCET criteria used. Contrast used:65 cc mL of Isovue 370 without and with IV Contrast, Oral contrast used: None. FINDINGS: CTA HEAD: No evidence of acute intracranial hemorrhage, mass effect, or midline shift. The ventricles, sulci, a nd cisterns are unremarkable. The visualized portions of the internal carotid arteries, middle cerebral arteries, anterior cerebral arteries, and posterior cerebral arteries are patent. A1 segment. Hypoplastic right A1 segment. The basilar and vertebral arteries are patent. CTA NECK: Right Carotid System: The common carotid artery and external carotid artery are patent. The carotid bifurcation demonstrate s no evidence of hemodynamically significant stenosis. The remaining portions of the internal carotid artery demonstrate normal size without significant narrowing. Left Carotid System: The common carotid artery and external carotid artery are patent. The carotid bifurcation demonstrate s no evidence of hemodynamically significant stenosis. The remaining portions of the internal carotid artery demonstrate normal size without significant narrowing. Vertebral arteries are patent without evidence hemodynamically significant stenosis. There is a three-vessel aortic arch. The origins of the great vessels are patent. No evidence of hemo dynamically significant stenosis. IMPRESSION: 1. No evidence of dissection of the cervical internal carotid arteries or vertebral arteries or any e vidence of significant stenosis at the carotid bifurcations. 2. No evidence of intracranial high-grade stenosis or intracranial aneurysm.
[2023-01-24] MEDS ORDERED: DEXAMETHASONE SOD PHOSPHATE 10 MG/ML 1 ML VIAL IVP STA (19:38)
[2023-01-24 21:03] VITALS: BP 123/84; PULSE 85; RESP 20
== END 2023-01-24 20:45 | disposition home or self-care (01) ==
LOC: EC 17:44
DX: R20.2 Paresthesia of skin (principal); R53.1 Weakness; R22.0 Localized swelling, mass and lump, head; I10 Essential (primary) hypertension; M06.9 Rheumatoid arthritis, unspecified; Z86.73 Personal history of transient ischemic attack (TIA), and cerebral infarction without residual deficits; Z86.711 Personal history of pulmonary embolism; Z79.01 Long term (current) use of anticoagulants; Z79.899 Other long term (current) drug therapy
CPT/HCPCS: 36415; 93005; 80053; 83735; 84100; 84484; 85025; 85610; 85730; 71046; 70496; 70450; 70498; 99284; Q9967

== ENCOUNTER → 2023-02-27 | Outpatient (CLI) | payer BC ==
--- NOTE | 2023-02-27 14:55 | P.SLEEP ---
History of Present Illness DATE: 02/27/2023 CONSULTATION/NEW PATIENT EVALUATION HISTORY OF PRESENT ILLNESS/SLEEP-WAKE EVALUATION: 37-year-old lady had been ev aluated in the sleep center for possible obstructive sleep apnea hypopnea syndrome. SLEEP SCHEDULE: Usually sleep schedule from 11 PM to 7 AM on weekdays and to 8 AM on weekend. FALLING ASLEEP: Patient has problems with falling asleep, has TV set and bedroom. DURING SLEEP: Patient usually sleeps on the side position with snoring and witnessed episodes of stop breathing during the sleep. Patient wakes up from sleep up to 3 times with nocturia, episodes of gasping for air, restless leg symptoms. Positive history of sleep talking and sweating during the night No history of hypnogogical hallucinations, sleep paralysis, or cataplexy. DURING THE DAY/WAKE STATE: Patient may fill sleepiness during the day. Armstrong sleepiness scale is 6. Patient takes naps at 10 or 11 a.m. PAST MEDICAL HISTORY: COPD, DVT disease PE, cardiac arrhythmia, acid reflux, hypertension. PAST SURGICAL HISTORY: Lung surgery for pulmonary embolism, tonsillectomy, adenoidectomy, heart catheterization. MEDICATIONS: Albuterol, metoprolol 25 mg once a day, gabapentin 300 mg at bedtime, pantoprazole 40 mg once a day, losartan 50 mg once a day. SOCIAL HISTORY: Negative for smoking or using alcohol. FAMILY HISTORY: Stroke, cancer, thyroid problems, diabetes. REVIEW OF SYSTEMS: Snoring, multiple awakenings from sleep, sleepiness during the day. No fevers. No double vision. No recent chest pain. No shortness of breath. No abdominal pain. No bleeding episodes. No blood in urine. No seizure episodes. PHYSICAL EXAMINATION: GENERAL: A pleasant patient without any distress. VITAL SIGNS: BP 164/97, HR 87, RR 12, weight 336.4 pounds, height 5 foot 7.5 inches, body mass index 51.8. HEENT: PERRLA, EOMI. Evaluation of oropharynx showed tongue protrudes midline, low position of soft palate Mallampati 4. NECK: Supple. No JVD. Thyroid is not palpable. 19 inches in circumference. LUNGS: Clear to percussion and to auscultation. Good air exchange. No wheezing or rhonchi. HEART: S1, S2 regular. No murmurs, gallops or rubs. ABDOMEN: Soft and nontender. Bowel sounds are present. No organomegaly appreciated. EXTREMITIES: No clubbing or cyanosis. PRODUCT TESTER FIBERGLASS: Awake, alert, and oriented x3. Cranial nerves 2 to 7 intact. There is no fasciculation or atrophy noted. No focal deficits observed. ASSESSMENT: 1. Snoring, witnessed episodes of stop breathing during the sleep, multiple awakenings from sleep, extremely low position of soft palate Mallampati 4, wide neck 19 inches in circumference, episodes of sleepiness. Obstructive sleep apnea hypopnea syndrome. 2. Obesity, BMI 51.8. 3. Hypertension. 4. COPD. 5 history of deep venous thrombosis with pulmonary embolism. 6 . Status post lung surgery for pulmonary embolism in July 2022. 7. History of cardiac arrhythmia. 8. Acid reflux. 9 . Episodes of chest pain. 10. Status post tonsillectomy and adenoidectomy. 11. History of sinuses problems. 12. Headaches. 13. Restless leg symptoms. 14. Possibly periodic limb movements PLAN: 1. Polysomnography for evaluation of patient's breathing during sleep and to check for possible periodic limb movements. 2. CPAP/BiPAP titration if sleep study confirms obstructive sleep apnea- hypopnea syndrome. 3. Preferable position during sleep on the side. 4. No driving if patient feels any sleepiness. Patient is aware of civil and criminal liability for unsafe driving. 5. Sleep hygiene with regular sleep time for at least 7.5-8 hours. 6. Watching and losing weight. Thank you very much for referring this patient for consultation. Sincerely, Abhinav Lowe MD, PhD, FAASM. Diplomat of [place] [employer], Sleep Medicine Board by [place] [employer] [employer] Nursing [facility] Director of [employer] [facility] [employer] Past Medical History Past Medical History: Deep Vein Thrombosis (DVT), Hypertension, Pulmonary Embolus (PE), Rheumatoid Arthritis (RA) Additional Past Medical History / Comment(s): Saddle PE, DVT, PVCS History of Any Multi-Drug Resistant Organisms: None Reported Past Surgical History: Adenoidectomy, Tonsillectomy Past Psychological History: No Psychological Hx Reported Smoking Status: Never smoker Past Alcohol Use History: None Reported Past Drug Use History: None Reported Medications and Allergies Home Medications Medication Instructions Recorded Confirmed Type Albuterol Inhaler [Ventolin Hfa 2 puff INHALATION RT-Q6H PRN 07/22/22 01/24/23 History Inhaler] Pantoprazole [Protonix] 40 mg PO DAILY 07/22/22 01/24/23 History Acetaminophen Tab [Tylenol] 1,000 mg PO Q6HR PRN 10/08/22 01/24/23 History Apixaban [Eliquis] 5 mg PO BID 10/08/22 01/24/23 History Losartan Potassium 50 mg PO DAILY 11/08/22 01/24/23 History Metoprolol Succinate (ER) [Toprol 25 mg PO DAILY #90 tab 11/11/22 01/24/23 Rx Xl] Prochlorperazine [Compazine] 5 mg PO BID PRN 01/24/23 01/24/23 History Allergies Allergy/AdvReac Type Severity Reaction Status Date / Time No Known Allergies Allergy Verified 01/24/23 20:12 Sleep Note - Sleep Note Sleep Note: Temperature: Pulse Rate: Respiratory Rate: Blood Pressure: SpO2: Height: Weight: BMI: Neck Circumference:
== END ==
LOC: 3 N SLEEP 14:16
PROVIDERS: ATTEND Internal Medicine
DX: G47.33 Obstructive sleep apnea (adult) (pediatric) (principal); E66.9 Obesity, unspecified; I10 Essential (primary) hypertension; J44.9 Chronic obstructive pulmonary disease, unspecified; K21.9 Gastro-esophageal reflux disease without esophagitis; R51.9 Headache, unspecified; R07.89 Other chest pain; G25.81 Restless legs syndrome; Z86.718 Personal history of other venous thrombosis and embolism; Z86.711 Personal history of pulmonary embolism; Z98.890 Other specified postprocedural states; Z90.89 Acquired absence of other organs; Z86.79 Personal history of other diseases of the circulatory system; Z68.43 Body mass index [BMI] 50.0-59.9, adult; Z79.899 Other long term (current) drug therapy; Z79.01 Long term (current) use of anticoagulants
CPT/HCPCS: 99211

== ENCOUNTER 2023-04-30 18:16 | Emergency (ER) | payer BC ==
--- NOTE | 2023-04-30 18:54 | ED ---
General Adult HPI - General Chief complaint: Upper Respiratory Infection Stated complaint: fever/vomiting Time Seen by Provider: 04/30/23 18:35 Source: patient, RN notes reviewed, old records reviewed Mode of arrival: ambulatory Limitations: no limitations - History of Present Illness Initial comments: Patient is a 37-year-old female presents emergency department complaining of URI symptoms. Patient has been having cough, congestion, sore throat, generalized chest burning worse with coughing, mild nausea and nonbilious nonbloody emesis for over a day. No known sick contacts. Does have a fever. Denies any abdominal pain. Denies any headaches. Presents for further evaluation at this time. Has a history of a provoked PE on control medications. Symptoms have not mimic to that. She is no longer on blood thinners. No lower extremity swelling or edema. No pain in lower extremities. Symptoms all seem to be's secondary to the upper respiratory symptoms. Denies shortness of breath. - Related Data Home Medications Medication Instructions Recorded Confirmed Albuterol Inhaler [Ventolin Hfa 2 puff INHALATION RT-Q6H PRN 07/22/22 01/24/23 Inhaler] Pantoprazole [Protonix] 40 mg PO DAILY 07/22/22 01/24/23 Acetaminophen Tab [Tylenol] 1,000 mg PO Q6HR PRN 10/08/22 01/24/23 Apixaban [Eliquis] 5 mg PO BID 10/08/22 01/24/23 Losartan Potassium 50 mg PO DAILY 11/08/22 01/24/23 Prochlorperazine [Compazine] 5 mg PO BID PRN 01/24/23 01/24/23 Previous Rx's Medication Instructions Recorded Metoprolol Succinate (ER) [Toprol 25 mg PO DAILY #90 tab 11/11/22 Xl] Amoxic-Pot Clav 875-125Mg 1 tab PO BID 7 Days #14 tab 04/30/23 [Augmentin 875-125] Allergies Allergy/AdvReac Type Severity Reaction Status Date / Time No Known Allergies Allergy Verified 04/30/23 18:25 Review of Systems ROS Statement: Those systems with pertinent positive or pertinent negative responses have been documented in the HPI. Review of Systems: CONST: Endorses fever EYES: Denies blurry vision ENT: Endorses nasal congestion C/V: Endorses chest burning RESP: Denies shortness of breath GI: Denies abdominal pain : Denies dysuria SKIN: Denies rash. MSK: Denies joint pain. NEURO: Denies headache ROS Other: All systems not noted in ROS Statement are negative. Past Medical History Past Medical History: Deep Vein Thrombosis (DVT), Hypertension, Pulmonary Embolus (PE), Rheumatoid Arthritis (RA) Additional Past Medical History / Comment(s): Saddle PE, DVT, PVCS History of Any Multi-Drug Resistant Organisms: None Reported Past Surgical History: Adenoidectomy, Tonsillectomy Past Psychological History: No Psychological Hx Reported Smoking Status: Never smoker Past Alcohol Use History: None Reported Past Drug Use History: None Reported General Exam - General Exam Comments Initial Comments: General: Appears in no acute distress. Patient is febrile. HEAD: Normal with no signs of head trauma. EYES: PERRLA, EOMI, conjunctiva normal, no discharge. ENT: Hearing grossly intact, oropharynx is erythematous. RESPIRATORY: Clear breath sounds bilaterally. No wheezes, rales, or rhonchi. C/V: Regular rate and rhythm. S1 and S2 auscultated, no edema, peripheral pulses 2+ and intact throughout ABD: Abd is soft, nontender, nondistended EXT: Normal range of motion, no obvious deformity SKIN: No rashes or lesions observed on exposed skin. NEURO: Alert and oriented x 4. Limitations: no limitations Course Vital Signs 04/30/23 18:21 Temperature 101.6 F H Pulse Rate 60 Respiratory 18 Rate Blood Pressure 154/64 O2 Sat by Pulse 98 Oximetry Medical Decision Making - Medical Decision Making Was pt. sent in by a medical professional or institution (, PA, [employer], urgent care, hospital, or jail...) When possible be specific @ -No Did you speak to anyone other than the patient for history (EMS, parent, family, police, friend...)? What history was obtained from this source @ -No Did you review nursing and triage notes (agree or disagree)? Why? @ -I reviewed and agree with nursing and triage notes Were old charts reviewed (outside hosp., previous admission, EMS record, old EKG, old radiological studies, urgent care reports/EKG's, jail records)? Report findings @ -Old charts reviewed Differential Diagnosis (chest pain, altered mental status, abdominal pain women, abdominal pain men, vaginal bleeding, weakness, fever, dyspnea, syncope, headache, dizziness, GI bleed, back pain, seizure, CVA, palpatations, mental health, musculoskeletal)? @ -COVID, flu, RSV. Pneumonia. Dehydration. This list is not all inclusive. EKG interpreted by me (3pts min.). @ -As above X-rays interpreted by me (1pt min.). @ -X-ray revealed no obvious acute cardiopulmonary process. Compared with prior chest x-rays and that is unchanged. CT interpreted by me (1pt min.). @ -None done U/S interpreted by me (1pt. min.). @ -None done What testing was considered but not performed or refused? (CT, X-rays, U/S, labs)? Why? @ -None What meds were considered but not given or refused? Why? @ -None Did you discuss the management of the patient with other professionals (professionals i.e. , PA, [employer], lab, RT, psych nurse, psychologist social, import coordinator, teacher, learning officer, case checker)? Give summary @ -No Was smoking cessation discussed for >3mins.? @ -No Was critical care preformed (if so, how long)? @ -No Were there social determinants of health that impacted care today? How? (Homelessness, low income, unemployed, alcoholism, drug addiction, transportation, low edu. Level, literacy, decrease access to med. care, [facility], rehab)? @ -No Was there de-escalation of care discussed even if they declined (Discuss DNR or withdrawal of care, Hospice)? DNR status @ -No What co-morbidities impacted this encounter? (DM, HTN, Smoking, COPD, CAD, Cancer, CVA, ARF, Chemo, Hep., AIDS, mental health diagnosis, sleep apnea, morbi d obesity)? @ -None Was patient admitted / discharged? Hospital course, mention meds given and rout e, prescriptions, significant lab abnormalities, going to OR and other pertinent info. @ -Discussed with the patient, appears to have an upper respiratory illness, as her symptoms are obviously infectious in nature with the fever, congestion, runny nose, sore throat. The remainder the patient's symptoms all seem secondary to this. Patient is febrile. She does have a history of a PE but does not feel short of breath but rather is congested, coughing, with a sore throat. Also has generalized burning sensation in the chest. Worse with coughing. No evidence of DVT. No hypoxia. I did discuss with the patient we both agree she is likely infectious related for her symptoms. We will obtain basic labs as well as infectious swabs, chest x-ray. Screening EKG will also be obtained. Patient will be symptomatically treated with IV fluids, Zofran, Toradol, Tylenol. Patient is currently febrile with remainder the vital signs within acceptable limits. She was in agreement this plan. EKG showed PVCs with no signs of acute ischemia. Chest x-ray is unchanged from prior chest x-rays. No focal infectious process. Laboratory studies remarkable for leukocytosis of 16.1. Patient is strep positive. I discussed results with patient. She is feeling somewhat improved at this time. She will be discharged home at this time. She will be placed on Augmentin, ODT Zofran. She will also receive a dose of steroid in addition to a dose of antibiotic prior to discharge. She was in agreement this plan. Discussed strict return precautions as well as recommended isolation for at least 24 hours until fever free without taking antipyretic medications. She will be given a work note. Patient was in agreement this plan. I will provide the patient with a prescription for Augmentin. I instructed the patient to follow up with their PCP in the next 1-3 days.. I explained that the patient should return to the emergency department if they experience any worsening symptoms. Strict return precautions were discussed with the patient. The patient expressed understanding of these instructions. I answered all questions that the patient had. The patient was discharged home in good condition with their prescriptions and follow up information. Undiagnosed new problem with uncertain prognosis? @ -No Drug Therapy requiring intensive monitoring for toxicity (Heparin, Nitro, Insulin, Cardizem)? @ -No Were any procedures done? @ -No Diagnosis/symptom? @ -Strep pharyngitis Acute, or Chronic, or Acute on Chronic? @ -Acute Uncomplicated (without systemic symptoms) or Complicated (systemic symptoms)? @ -Complicated Side effects of treatment? @ -None Exacerbation, Progression, or Severe Exacerbation] @ -No Poses a threat to life or bodily function? @ -Unlikely - Lab Data Result diagrams: 04/30/23 18:53 04/30/23 18:53 Lab Results 04/30/23 04/30/23 04/30/23 Range/Units 18:53 18:53 18:53 WBC 16.1 H (3.8-10.6) k/uL RBC 4.94 (3.80-5.40) m/uL Hgb 13.7 (11.4-16.0) gm/dL Hct 41.5 (34.0-46.0) % MCV 84.0 (80.0-100.0) fL MCH 27.8 (25.0-35.0) pg MCHC 33.1 (31.0-37.0) g/dL RDW 13.3 (11.5-15.5) % Plt Count 248 (150-450) k/uL MPV 8.0 Neutrophils % 83 % Lymphocytes % 9 % Monocytes % 5 % Eosinophils % 1 % Basophils % 0 % Neutrophils # 13.4 H (1.3-7.7) k/uL Lymphocytes # 1.5 (1.0-4.8) k/uL Monocytes # 0.8 (0-1.0) k/uL Eosinophils # 0.2 (0-0.7) k/uL Basophils # 0.1 (0-0.2) k/uL Sodium 132 L (137-145) mmol/L Potassium 3.9 (3.5-5.1) mmol/L Chloride 101 (98-107) mmol/L Carbon Dioxide 24 (22-30) mmol/L Anion Gap 7 mmol/L BUN 7 (7-17) mg/dL Creatinine 0.54 (0.52-1.04) mg/dL Est GFR (CKD-EPI)AfAm >90 (>60 ml/min/1.73 sqM) Est GFR (CKD-EPI)NonAf >90 (>60 ml/min/1.73 sqM) Glucose 113 H (74-99) mg/dL Calcium 8.6 (8.4-10.2) mg/dL Influenza Type A (PCR) (Not Detectd) Influenza Type B (PCR) (Not Detectd) RSV (PCR) (Not Detectd) SARS-CoV-2 (PCR) (Not Detectd) Group A Strep (PCR) DETECTED A (Not Detectd) 04/30/23 Range/Units 18:53 WBC (3.8-10.6) k/uL RBC (3.80-5.40) m/uL Hgb (11.4-16.0) gm/dL Hct (34.0-46.0) % MCV (80.0-100.0) fL MCH (25.0-35.0) pg MCHC (31.0-37.0) g/dL RDW (11.5-15.5) % Plt Count (150-450) k/uL MPV Neutrophils % % Lymphocytes % % Monocytes % % Eosinophils % % Basophils % % Neutrophils # (1.3-7.7) k/uL Lymphocytes # (1.0-4.8) k/uL Monocytes # (0-1.0) k/uL Eosinophils # (0-0.7) k/uL Basophils # (0-0.2) k/uL Sodium (137-145) mmol/L Potassium (3.5-5.1) mmol/L Chloride (98-107) mmol/L Carbon Dioxide (22-30) mmol/L Anion Gap mmol/L BUN (7-17) mg/dL Creatinine (0.52-1.04) mg/dL Est GFR (CKD-EPI)AfAm (>60 ml/min/1.73 sqM) Est GFR (CKD-EPI)NonAf (>60 ml/min/1.73 sqM) Glucose (74-99) mg/dL Calcium (8.4-10.2) mg/dL Influenza Type A (PCR) Not Detected (Not Detectd) Influenza Type B (PCR) Not Detected (Not Detectd) RSV (PCR) Not Detected (Not Detectd) SARS-CoV-2 (PCR) Not Detected (Not Detectd) Group A Strep (PCR) (Not Detectd) - EKG Data -: EKG Interpreted by Me EKG Comments: 12-lead Electrocardiogram Interpretation Note EKG was reviewed and interpreted by myself. 12-lead ECG performed at 1845 is interpreted by me as revealing sinus tachycardia with PVCs at a rate of 106 beats per minute. [place] is normal. OK interval is 141 ms, QRS duration is 81 ms, QTc is 343 ms.. There were no ST or T wave abnormalities to suggest myocardial ischemia or injury. R wave progression across the precordium was satisfactory. By my interpretation this EKG is non-diagnostic for acute ischemia. Disposition Clinical Impression: Strep pharyngitis Disposition: HOME SELF-CARE Condition: Good Instructions (If sedation given, give patient instructions): Strep Throat (ED) Additional Instructions: Isolate until 24 hours fever free without acetaminophen/ibuprofen for fever control. Prescriptions: Amoxic-Pot Clav 875-125Mg [Augmentin 875-125] 1 tab PO BID 7 Days #14 tab Is patient prescribed a controlled substance at d/c from ED?: No Referrals: Robin Lutz DO [Primary Care Provider] - 1-2 days Time of Disposition: 19:50
[2023-04-30] MEDS: ACETAMINOPHEN TAB 500 MG TAB PO STA (18:55)
[2023-04-30] MEDS: SODIUM CHLORIDE 0.9% 1,000 ML IV STA (18:56)
[2023-04-30 19:00] LABS: Basophils # (A) 0.1 k/uL (0-0.2); Basophils % (A) 0 %; Eosinophils # (A) 0.2 k/uL (0-0.7); Eosinophils % (A) 1 %; HCT 41.5 % (34.0-46.0); HGB 13.7 gm/dL (11.4-16.0); Lymphocytes # (A) 1.5 k/uL (1.0-4.8); Lymphocytes % (A) 9 %; MCH 27.8 pg (25.0-35.0); MCHC 33.1 g/dL (31.0-37.0); Monocytes # (A) 0.8 k/uL (0-1.0); Monocytes % (A) 5 %; Neutrophils # (A) 13.4 k/uL (1.3-7.7); Neutrophils % (A) 83 %; Platelet Count 248 k/uL (150-450); RBC 4.94 m/uL (3.80-5.40); RDW 13.3 % (11.5-15.5); WBC 16.1 k/uL (3.8-10.6)
[2023-04-30 19:08] LABS: African American GFR (CKD) >90 (>60 ml/min/1.73 sqM); Anion Gap 7 mmol/L; Blood Urea Nitrogen 7 mg/dL (7-17); Calcium 8.6 mg/dL (8.4-10.2); Carbon Dioxide 24 mmol/L (22-30); Chloride 101 mmol/L (98-107); Glucose 113 mg/dL (74-99); Non-African American GFR(CKD) >90 (>60 ml/min/1.73 sqM); Potassium 3.9 mmol/L (3.5-5.1); Sodium 132 mmol/L (137-145)
--- NOTE | 2023-04-30 19:20 | XR ---
EXAMINATION TYPE: XR chest 2V DATE OF EXAM: 04/30/2023 7:06 PM CLINICAL INDICATION:Female, 37 years old with history of cough; [facility] COMPARISON: none TECHNIQUE: XR chest 2V Frontal and lateral views of the chest. FINDINGS: Lungs/Pleura: There is no evidence of pleural effusion, focal consolidation, or pneumothorax. Pulmonary vascularity: Unremarkable. Heart/mediastinum: Cardiomediastinal silhouette is unremarkable. Musculoskeletal: No acute osseous pathology. IMPRESSION: No acute cardiopulmonary disease/process.
[2023-04-30] MEDS: ONDANSETRON 4 MG/2 ML VIAL IVP STA (19:28)
[2023-04-30] MEDS: KETOROLAC 15 MG/ML 1 ML VIAL IVP STA (19:29)
[2023-04-30] MEDS: AMOXIC-POT CLAV 875-125MG 1 EACH TAB PO STA (20:00)
[2023-04-30] MEDS: ONDANSETRON 4 MG ODT STARTER PACK 2 TAB BTL PO STA (20:00)
[2023-04-30] MEDS: DEXAMETHASONE SOD PHOSPHATE 4 MG/ML 1 ML VIAL IVP STA (20:01)
[2023-04-30 20:27] VITALS: BP 129/76; PULSE 97; RESP 22; TEMP 99.6
== END 2023-04-30 20:03 | disposition home or self-care (01) ==
LOC: EC 18:16
DX: J02.0 Streptococcal pharyngitis (principal); B95.0 Streptococcus, group A, as the cause of diseases classified elsewhere; R00.0 Tachycardia, unspecified; I10 Essential (primary) hypertension; M06.9 Rheumatoid arthritis, unspecified; Z20.822 Contact with and (suspected) exposure to COVID-19; Z79.01 Long term (current) use of anticoagulants; Z86.711 Personal history of pulmonary embolism; Z86.718 Personal history of other venous thrombosis and embolism; Z79.899 Other long term (current) drug therapy
CPT/HCPCS: 36415; 87651; 80048; 85025; 87636; 71046; 99285; 96374; 96375 ×2; 96361; J1100; J2405; J1885; S0119

== ENCOUNTER → 2023-05-16 | Outpatient (CLI) | payer BC ==
--- NOTE | 2023-05-20 11:40 | MR ---
EXAMINATION TYPE: MR pancreas wo/w con DATE OF EXAM: 05/16/2023 12:49 PM CLINICAL INDICATION:Female, 37 years old with history of K86.2 CYST OF PANCREAS; [facility], Abnormal CT. COMPARISON: CT scan abdomen from 12/31/2022.. TECHNIQUE: Multiplanar multi-sequence imaging was performed without contrast. Post contrast imaging was performed. Post IV contrast subtraction images were also submitted for review. IV Contrast: 15 cc Gadavist FINDINGS: LOWER CHEST: No gross irregularity. ABDOMEN Liver: No evidence for hepatic steatosis or cirrhosis. Gallbladder and Bile ducts: No evidence for ductal dilation, or biliary stricture or evidence of chol edocholithiasis. The gallbladder is within normal limits. Pancreas: No ductal dilation. No evidence for solid mass. No cystic lesions of the pancreas definitiv kvng visualized. Fatty atrophy changes most pronounced in the pancreatic tail Spleen: Normal for size. Adrenal glands: Unremarkable. Kidneys: No evidence for obstructive uropathy. No suspicious renal masses. Stomach and Bowel: No evidence for bowel wall thickening or evidence for obstruction. Retroperitoneum/Peritoneum: No evidence of pneumoperitoneum or free fluid. Vasculature: No aortic aneurysm. Musculoskeletal: The osseous structures appear intact. Lymph Nodes: No gross evidence for lymphadenopathy. Abdominal wall: Unremarkable. IMPRESSION: Mild respiratory motion limited exam on postcontrast imaging. No pancreatic solid or cystic neoplasm identified. Fatty atrophy changes of the pancreatic tail.
== END | disposition home or self-care (01) ==
LOC: RADMRIMAIN 11:58
PROVIDERS: ATTEND Family Medicine
DX: K86.89 Other specified diseases of pancreas (principal); K86.2 Cyst of pancreas
CPT/HCPCS: 74183; A9585

== ENCOUNTER → 2023-05-19 | Outpatient (CLI) | payer BC ==
--- NOTE | 2023-05-24 14:36 | P.PCN ---
Description of Procedure: CLINICAL: A home sleep apnea test has been done for confirmation of possible obstructive sleep apnea-hypopnea syndrome. DESCRIPTION OF PROCEDURE: RESULTS: Recording time was 7 hours 57 minutes. Evaluation time was 7 hours 45 minutes. Evaluation time is sufficient for making conclusion about results of the test. Raw data of sleep recording has been reviewed and is adequate. Respiratory channel showed 15 apneas and 122 hypopneas. Apnea-hypopnea index was 17.7 per hour. Pulse rate in the range between minimum 42, maximum 102, average 78 by computer calculation. Lowest desaturation was 61%. IMPRESSION: 1. Moderate Obstructive Sleep Apnea Hypopnea Syndrome with severe oxygen desaturation. 2. Morbid obesity, BMI ND 51.8. 3. COPD. Please see other impressions from consultation. PLAN: 1. The patient will have PAP titration for correction of respiratory abnormallities during sleep. 2. Sleep hygiene with regular time in bed for at least 8 hours. 3. Watching and aggressive losing weight. 4. No driving if feeling any sleepiness. Thank you very much for allowing me to participate in the management of your patient. Sincerely, Abhinav Lowe MD, PhD, FAASM Diplomat of [employer] Sleep Medicine Board of [employer] [facility]
== END ==
LOC: 3 N SLEEP 10:52
PROVIDERS: ATTEND Internal Medicine
DX: G47.33 Obstructive sleep apnea (adult) (pediatric) (principal); E66.01 Morbid (severe) obesity due to excess calories; J44.9 Chronic obstructive pulmonary disease, unspecified; G47.36 Sleep related hypoventilation in conditions classified elsewhere; Z68.43 Body mass index [BMI] 50.0-59.9, adult

== ENCOUNTER 2023-06-25 17:24 | Emergency (ER) | payer BC ==
--- NOTE | 2023-06-25 17:32 | ED ---
Chest Pain HPI - General Source: patient, RN notes reviewed Mode of arrival: ambulatory Limitations: no limitations <Mechelle Rowe - Last Filed: 06/25/23 17:33> <Evelyn Alejandro - Last Filed: 06/27/23 18:47> - General Chief Complaint: Chest Pain Stated Complaint: Chest pain Time Seen by Provider: 06/25/23 17:31 - History of Present Illness Initial Comments: Note: 37-year-old female presented to the ER with a chief complaint of chest pain and shortness of breath. Patient has a past medical history significant f or a saddle pulmonary embolism. She is not currently on any blood thinners. Denies any recent travel, calf swelling or tenderness. She states since yesterday she has been having a burning/sharp chest pain. Denies any dizziness, nausea, vomiting. (Mechelle Rowe) Is a 37-year-old female with a past medical history of saddle PE and pulmonary hypertension who presents emergency department chief complaint of dyspnea, chest pain and paresthesias in the left arm. States that the chest tightness and tearing sensation has been alternating sides between her right and left side. She states that the shortness of breath is activity. Additionally the chest pain is mildly reproducible on examination. Patient is not currently on any blood thinners, states that she was taken off of them in January. Follow-up appointment with vascular specialist was in February no evidence for DVT of bilateral lower extremities. Patient has been diagnosed with complex regional pain syndrome of the right lower extremity where her previous PE originated from. (Evelyn Alejandro) - Related Data Home Medications Medication Instructions Recorded Confirmed Albuterol Inhaler [Ventolin Hfa 2 puff INHALATION RT-Q6H PRN 07/22/22 01/24/23 Inhaler] Pantoprazole [Protonix] 40 mg PO DAILY 07/22/22 01/24/23 Acetaminophen Tab [Tylenol] 1,000 mg PO Q6HR PRN 10/08/22 01/24/23 Apixaban [Eliquis] 5 mg PO BID 10/08/22 01/24/23 Losartan Potassium 50 mg PO DAILY 11/08/22 01/24/23 Prochlorperazine [Compazine] 5 mg PO BID PRN 01/24/23 01/24/23 Previous Rx's Medication Instructions Recorded Metoprolol Succinate (ER) [Toprol 25 mg PO DAILY #90 tab 11/11/22 Xl] Amoxic-Pot Clav 875-125Mg 1 tab PO BID 7 Days #14 tab 04/30/23 [Augmentin 875-125] Allergies Allergy/AdvReac Type Severity Reaction Status Date / Time No Known Allergies Allergy Verified 06/25/23 17:28 Review of Systems ROS Other: All systems not noted in ROS Statement are negative. <Mechelle Rowe - Last Filed: 06/25/23 17:33> ROS Other: All systems not noted in ROS Statement are negative. <Evelyn Alejandro - Last Filed: 06/27/23 18:47> ROS Statement: Those systems with pertinent positive or pertinent negative responses have been documented in the HPI. Past Medical History Past Medical History: Deep Vein Thrombosis (DVT), Hypertension, Pulmonary Embolus (PE), Rheumatoid Arthritis (RA) Additional Past Medical History / Comment(s): Saddle PE, DVT, PVCS History of Any Multi-Drug Resistant Organisms: None Reported Past Surgical History: Adenoidectomy, Tonsillectomy Past Psychological History: No Psychological Hx Reported Smoking Status: Never smoker Past Alcohol Use History: None Reported Past Drug Use History: None Reported <Mechelle Rowe - Last Filed: 06/25/23 17:33> General Exam Limitations: no limitations <Mechelle Rowe - Last Filed: 06/25/23 17:33> General appearance: alert, in no apparent distress Head exam: Present: atraumatic, normocephalic, normal inspection Eye exam: Present: normal appearance, PERRL, EOMI. Absent: scleral icterus, conjunctival injection, periorbital swelling ENT exam: Present: normal exam, mucous membranes moist Neck exam: Present: normal inspection. Absent: tenderness, meningismus, lymphadenopathy Respiratory exam: Present: normal lung sounds bilaterally. Absent: respiratory distress, wheezes, rales, rhonchi, stridor Cardiovascular Exam: Present: regular rate, normal rhythm, normal heart sounds. Absent: systolic murmur, diastolic murmur, rubs, gallop, clicks GI/Abdominal exam: Present: soft, normal bowel sounds. Absent: distended, tenderness, guarding, rebound, rigid Extremities exam: Present: normal inspection, full ROM, normal capillary refill. Absent: tenderness, pedal edema, joint swelling, calf tenderness Right Upper Arm exam: Present: normal inspection, other (Patient reporting paresthesias. No clinical signs of erythema, swelling.) Right Foot/Toe exam: Present: tenderness (Anterior foot tenderness with palpation.). Absent: swelling Back exam: Present: normal inspection Neurological exam: Present: alert, oriented X3, CN II-XII intact Psychiatric exam: Present: normal affect, normal mood Skin exam: Present: warm, dry, intact, normal color. Absent: rash <Evelyn Alejandro - Last Filed: 06/27/23 18:47> - General Exam Comments Initial Comments: Visual Physical Exam Vital signs reviewed General: Well-appearing, nontoxic, no acute distress. Head: Normocephalic, atraumatic Eyes: PERRLA, EOMI ENT: Airway patent Chest: Nonlabored breathing Skin: No visual rash, normal skin tone Neuro: Alert and oriented 3 Musculoskeletal: No gross abnormalities (Mechelle Rowe) Course Vital Signs 06/25/23 06/25/23 17:26 21:22 Temperature 98.4 F Pulse Rate 85 77 Respiratory 16 19 Rate Blood Pressure 139/80 136/89 O2 Sat by Pulse 97 99 Oximetry Chest Pain MDM <Mechelle Rowe - Last Filed: 06/25/23 17:33> <Evelyn Alejandro - Last Filed: 06/27/23 18:47> - MDM I performed the quick note portion of this chart. Electronically signed by Mechelle Rowe PA-C (Mechelle Rowe) Was pt. sent in by a medical professional or institution ([facility], [facility], urgent care, hospital, or fdc...) When possible be specific @ -No Did you speak to anyone other than the patient for history (EMS, parent, family, police, friend...)? What history was obtained from this source @ -No Did you review nursing and triage notes (agree or disagree)? Why? @ -I reviewed and agree with nursing and triage notes Were old charts reviewed (outside hosp., previous admission, EMS record, old EKG, old radiological studies, urgent care reports/EKG's, fdc records)? Report findings @ -Patient's previous emergency department charts reviewed where she was diagnosed with a saddle pulmonary embolism. Differential Diagnosis (chest pain, altered mental status, abdominal pain women, abdominal pain men, vaginal bleeding, weakness, fever, dyspnea, syncope, headache, dizziness, GI bleed, back pain, seizure, CVA, palpatations, mental health, musculoskeletal)? @ -Differential Chest Pain: Stable Angina, Unstable Angina, STEMI, NSTEMI Aortic Dissection, Pneumothorax, Musculoskeletal, Esophageal Spasm GERD, Cholecystitis, Pancreatitis, Zoster, this is not meant to be an all-inclusive list. EKG interpreted by me (3pts min.). @ -completed @1748 reading sinus rhythm, ventricular rate 80, parable 146, QTc 412. No evidence of acute ischemia. X-rays interpreted by me (1pt min.). @ -chest X-ray no acute cardiopulmonary process or disease CT interpreted by me (1pt min.). @ -None done U/S interpreted by me (1pt. min.). @ -None done What testing was considered but not performed or refused? (CT, X-rays, U/S, labs)? Why? @ -None What meds were considered but not given or refused? Why? @ -None Did you discuss the management of the patient with other professionals (professionals i.e. , PA, [facility], lab, RT, psych nurse, social service manager, make up operator helper, teacher, safety and security officer, telehealth case manager)? Give summary @ -No Was smoking cessation discussed for >3mins.? @ -No Was critical care preformed (if so, how long)? @ -No Were there social determinants of health that impacted care today? How? (Homelessness, low income, unemployed, alcoholism, drug addiction, transportation, low edu. Level, literacy, decrease access to med. care, senior care, rehab)? @ -No Was there de-escalation of care discussed even if they declined (Discuss DNR or withdrawal of care, Hospice)? DNR status @ -No What co-morbidities impacted this encounter? (DM, HTN, Smoking, COPD, CAD, Cancer, CVA, ARF, Chemo, Hep., AIDS, mental health diagnosis, sleep apnea, morbid obesity)? @ -morbid obesity, pulmonary hypertension Was patient admitted / discharged? Hospital course, mention meds given and route, prescriptions, significant lab abnormalities, going to OR and other pertinent info. @ -7-year-old female with a chief complaint of chest pain. Patient states that this pain is a stabbing sensation that it changes between the right and left side of her chest. She also states that she experiences mild shortness of breath when this pain happens. And this pain is intermittent. There are no acute deficits on cardiovascular examination. Additionally there are no concerns for DVT of the lower extremity. Patient is stating that she has heaviness and a discomfort of her left arm therefore a ultrasound of the left upper extremity will be ordered at this time. Patient was given Nitropaste for symptomatic relief. On reevaluation patient states that her chest pain is still present and rated as an 8 out of 10 and morphine was offered for pain reduction which patient accepted. CBC, CMP, coagulation profile within normal limits. Troponin nonelevated 0.012, dimer within normal limits, and magnesium level of 2.0. Patient states that her chest pain is still present he had has decreased after ministration of pain medication. Discussion with patient at bedside that symptoms are not likely secondary to acute cardiac or pulmonary cause at this time. With patient at bedside and answered all appropriate questions. Patient has a scheduled appointment with a pulmonary hypertensive specialist at the [facility] in July. Urged patient to keep the scheduled appointment. Strict return parameters discussed with the patient. Patient is stable for discharge. Case discussed with Dr. Downing Undiagnosed new problem with uncertain prognosis? @ -No Drug Therapy requiring intensive monitoring for toxicity (Heparin, Nitro, Insulin, Cardizem)? @ -No Were any procedures done? @ -No Diagnosis/symptom? @ -Chest pain Acute, or Chronic, or Acute on Chronic? @ -Acute Uncomplicated (without systemic symptoms) or Complicated (systemic symptoms)? @ -uncomplicated Side effects of treatment? @ -No Exacerbation, Progression, or Severe Exacerbation? @ -No Poses a threat to life or bodily function? How? (Chest pain, [place], ID, pneumonia, PE, COPD, DKA, ARF, appy, cholecystitis, CVA, Diverticulitis, Homicidal, Suicidal, threat to staff... and all critical care pts) @ -No (Evelyn Alejandro) Disposition <Mechelle Rowe - Last Filed: 06/25/23 17:33> Is patient prescribed a controlled substance at d/c from ED?: No Time of Disposition: 21:49 <Evelyn Alejandro - Last Filed: 06/27/23 18:47> Clinical Impression: Chest pain at rest, Stabbing chest pain, Pulmonary hypertension Narrative: Please return to the Emergency Department if symptoms worsen or any other concerns. (Evelyn Alejandro) Disposition: HOME SELF-CARE Condition: Good Instructions (If sedation given, give patient instructions): Chest Pain (ED) Referrals: Robin Lutz DO [Primary Care Provider] - 1-2 days
[2023-06-25 17:35] VITALS: TEMP 98.4
--- NOTE | 2023-06-25 19:21 | XR ---
EXAMINATION TYPE: XR chest 2V DATE OF EXAM: 06/25/2023 7:11 PM CLINICAL INDICATION:Female, 37 years old with history of Chest Pain; [facility] COMPARISON: Chest radiographs from 04/30/2023. TECHNIQUE: XR chest 2V Frontal and lateral views of the chest. FINDINGS: Lungs/Pleura: There is no evidence of pleural effusion, focal consolidation, or pneumothorax. Pulmonary vascularity: Unremarkable. Heart/mediastinum: Cardiomediastinal silhouette is unremarkable. Musculoskeletal: No acute osseous pathology. IMPRESSION: No acute cardiopulmonary disease/process.
[2023-06-25 19:54] LABS: Basophils # (A) 0.1 k/uL (0-0.2); Basophils % (A) 1 %; Eosinophils # (A) 0.3 k/uL (0-0.7); Eosinophils % (A) 3 %; HCT 42.4 % (34.0-46.0); HGB 13.7 gm/dL (11.4-16.0); Lymphocytes # (A) 2.8 k/uL (1.0-4.8); Lymphocytes % (A) 26 %; MCH 27.2 pg (25.0-35.0); MCHC 32.3 g/dL (31.0-37.0); MCV 84.2 fL (80.0-100.0); Mean Platelet Volume 8.3; Monocytes # (A) 0.6 k/uL (0-1.0); Monocytes % (A) 6 %; Neutrophils # (A) 6.7 k/uL (1.3-7.7); Neutrophils % (A) 63 %; Platelet Count 311 k/uL (150-450); RBC 5.04 m/uL (3.80-5.40); RDW 13.7 % (11.5-15.5); WBC 10.7 k/uL (3.8-10.6)
[2023-06-25 20:07] LABS: ALT 20 U/L (4-34); AST 21 U/L (14-36); African American GFR (CKD) >90 (>60 ml/min/1.73 sqM); Alkaline Phosphatase 108 U/L (38-126); Anion Gap 8 mmol/L; Blood Urea Nitrogen 9 mg/dL (7-17); Calcium 8.9 mg/dL (8.4-10.2); Carbon Dioxide 26 mmol/L (22-30); Chloride 105 mmol/L (98-107); Glucose 102 mg/dL (74-99); Non-African American GFR(CKD) >90 (>60 ml/min/1.73 sqM); Potassium 4.4 mmol/L (3.5-5.1); Sodium 139 mmol/L (137-145); Total Bilirubin 0.3 mg/dL (0.2-1.3); Total Protein 7.6 g/dL (6.3-8.2)
[2023-06-25 20:15] LABS: INR 0.9 (<1.2); Partial Thromboplastin Time 24.2 sec (22.0-30.0); Prothrombin Time 9.7 sec (10.0-12.5)
--- NOTE | 2023-06-25 20:26 | US ---
EXAMINATION TYPE: US venous doppler duplex UE LT DATE OF EXAM: 06/25/2023 COMPARISON: NONE CLINICAL INDICATION: Female, 37 years old with history of parasthesias, pain; No redness or swelling. HX PE July 2022. Not on blood thinners. Chest tightness. SIDE PERFORMED: Left Grayscale, color doppler, spectral doppler imaging performed of the deep veins of the upper extremiti es. There is normal flow, compressibility and vascular waveforms. Left Arm: Negative for DVT IMPRESSION: No evidence of deep venous thrombosis.
[2023-06-25] MEDS: NITROGLYCERIN OINT 1 INCH/GM PACKET TOPICAL STA (20:31)
[2023-06-25] MEDS: MORPHINE SULFATE 2 MG/ML SYRINGE IVP ONE (21:24)
[2023-06-25 21:36] VITALS: BP 136/89; PULSE 77; RESP 19
== END 2023-06-25 22:16 | disposition home or self-care (01) ==
LOC: EC 17:24
DX: I27.20 Pulmonary hypertension, unspecified (principal); R07.89 Other chest pain; E66.9 Obesity, unspecified; Z68.43 Body mass index [BMI] 50.0-59.9, adult
CPT/HCPCS: 99285 ×2; 96374 ×2; 36415; 93005; 85379; 80053; 83735; 84484; 85025; 85610; 85730; 71046; 93971; J2270

== ENCOUNTER 2023-06-27 19:33 | Outpatient (CLI) | payer BC ==
--- NOTE | 2023-06-29 11:06 | P.PCN ---
Description of Procedure: CLINICAL: Titration with positive air pressure has been done for correction of respiratory abnormalities during sleep. DESCRIPTION OF PROCEDURE: The standard montage for clinical polysomnography included the electroencephalogram, the electrocardiogram, the mentalis surface electromyography and Lead II cardiography. The respiratory battery consisted of measurements of nasal /buccal air flow, pressure transducer measurements from the nose, thoracic and /or abdominal effort and intercostal surface electromyography. Video monitoring has been done to check for any parasomnia events. Nocturnal oxyhemoglobin saturations were obtained by finger oximetry. Step-wood titration with positive airway pressure was utilized to control respiratory events. Raw data of sleep recording has been reviewed and is adequate. RESULTS: Sleep efficiency was normal 93.0%. Latency to sleep onset was in short range 6.0 minutes.]. Sleep architecture showed stage N1 significantly increased to 18.4%, Delta sleep was extremely short 0.5%, REM sleep was close to border 18.9%. Heart rate was minimum 60 BPM, maximum 84 BPM, average 71 BPM. EMG showed 43.7 periodic limb movements per hour with 0.3 micriarousals per hour. PAP titration have been done with CPAP up to the pressure 11 cm H2O. The best results were at the pressure 11 cm H2O. Apnea hypopnea index reduced to 4.0. IMPRESSION: 1. Obstructive sleep apnea hypopnea syndrome mostly on controle with PAP treatment. 2. Significant periodic limb movements have been documented. Please see other impressions from consultation. PLAN: 1. The patient will have treatment with positive air pressure equipment with the level of pressure AutoPAP 5-13 cm H2O and should use it every night for the night. 2. Watching and losing weight. 3. Sleep hygiene with regular time in bed for at least 8 hours. 4. No driving if feeling any sleepiness. 5. I will see the patient for follow up visit to explain the results of the test, recommendations, check compliance with treatment and make any necessary adjustment related to mask fitting, pressure and humidification. 6. Please check iron profile including ferritin level. Low level of iron may increase risk for periodic limb movements Thank you very much for allowing me to participate in the management of your patient. Sincerely, Abhinav Lowe MD, PhD, FAASM Diplomat of [place] [employer] Sleep Medicine [employer] [place] [employer] Financial Analyst of [facility]
== END 2023-06-28 05:45 | disposition home or self-care (01) ==
LOC: 3 N SLEEP 19:33
PROVIDERS: ATTEND Internal Medicine
DX: G47.33 Obstructive sleep apnea (adult) (pediatric) (principal); G47.61 Periodic limb movement disorder
CPT/HCPCS: 95811

== ENCOUNTER 2023-08-19 07:49 | Emergency (ER) | payer BC ==
--- NOTE | 2023-08-19 08:20 | ED ---
Chest Pain HPI - General Chief Complaint: Chest Pain Stated Complaint: Chest Pain, SOB Time Seen by Provider: 08/19/23 08:02 Source: patient, family, RN notes reviewed Mode of arrival: ambulatory Limitations: no limitations - History of Present Illness Initial Comments: This is a 37-year-old female who presents to the emergency department for chest pain and shortness of breath. States that it started 2 days ago. Chest pain is sharp and worse with movement and inhalation. States that she feels like she is having trouble catching her breath and speaking more than a few words at a time. She went to [facility] 2 days ago when symptoms began and she was discharged home after workup was unremarkable. She was diagnosed with a saddle embolus in July of last year. She had right heart strain and underwent EKOS. She was on Eliquis for 6 months and she was told she could discontinue this in January of last year. This was thought to potentially be related to control use as well as recent immobilization secondary to an injury. Dr. Pérez, cardiology, referred her to the [facility] due to concern for possible pulmonary hypertension. States that she had a nuclear medicine scan of the lungs last month and there was concern for some residual clots from the initial saddle PE. States that next month they are going to do a catheterization at [facility] to try to visualize these clots and determine the best way to remove them. MD Complaint: chest pain - Related Data Home Medications Medication Instructions Recorded Confirmed Albuterol Inhaler [Ventolin Hfa 2 puff INHALATION RT-Q6H PRN 07/22/22 01/24/23 Inhaler] Pantoprazole [Protonix] 40 mg PO DAILY 07/22/22 01/24/23 Acetaminophen Tab [Tylenol] 1,000 mg PO Q6HR PRN 10/08/22 01/24/23 Apixaban [Eliquis] 5 mg PO BID 10/08/22 01/24/23 Losartan Potassium 50 mg PO DAILY 11/08/22 01/24/23 Prochlorperazine [Compazine] 5 mg PO BID PRN 01/24/23 01/24/23 Previous Rx's Medication Instructions Recorded Metoprolol Succinate (ER) [Toprol 25 mg PO DAILY #90 tab 11/11/22 Xl] Amoxic-Pot Clav 875-125Mg 1 tab PO BID 7 Days #14 tab 04/30/23 [Augmentin 875-125] Albuterol Sulfate [Albuterol 1 - 2 puff PO Q4-6H PRN #8.5 gm 08/19/23 Sulfate Hfa] Naproxen Sodium 550 mg PO BID PRN #30 tablet 08/19/23 methocarbamoL [Robaxin-750] 1,500 mg PO TID PRN #30 tab 08/19/23 Allergies Allergy/AdvReac Type Severity Reaction Status Date / Time No Known Allergies Allergy Verified 06/25/23 17:28 Review of Systems ROS Statement: Those systems with pertinent positive or pertinent negative responses have been documented in the HPI. ROS Other: All systems not noted in ROS Statement are negative. Past Medical History Past Medical History: Deep Vein Thrombosis (DVT), Hypertension, Pulmonary Embolus (PE), Rheumatoid Arthritis (RA) Additional Past Medical History / Comment(s): Saddle PE, DVT, PVCS History of Any Multi-Drug Resistant Organisms: None Reported Past Surgical History: Adenoidectomy, Tonsillectomy Past Psychological History: No Psychological Hx Reported Smoking Status: Never smoker Past Alcohol Use History: None Reported Past Drug Use History: None Reported General Exam Limitations: no limitations General appearance: alert, in no apparent distress Head exam: Present: atraumatic, normocephalic, normal inspection Respiratory exam: Present: normal lung sounds bilaterally, chest wall tenderness. Absent: respiratory distress, wheezes, rales, rhonchi, stridor Cardiovascular Exam: Present: regular rate, normal rhythm, normal heart sounds. Absent: systolic murmur, diastolic murmur, rubs, gallop, clicks Neurological exam: Present: alert, oriented X3, CN II-XII intact Psychiatric exam: Present: normal affect, normal mood Skin exam: Present: warm, dry, intact, normal color. Absent: rash Course Vital Signs 08/19/23 08/19/23 08/19/23 07:53 08:00 08:55 Temperature 98 F Pulse Rate 89 80 Respiratory 20 16 16 Rate Blood Pressure 177/102 140/90 O2 Sat by Pulse 99 98 Oximetry 08/19/23 08/19/23 11:12 11:24 Temperature 97.9 F 98.0 F Pulse Rate 73 78 Respiratory 16 16 Rate Blood Pressure 131/78 136/70 O2 Sat by Pulse 97 95 Oximetry Chest Pain MDM - MDM This is a 37-year-old female who presents to the emergency department for chest pain and shortness of breath. Was pt. sent in by a medical professional or institution? @ -No Did you speak to anyone other than the patient for history? @ -No Did you review nursing and triage notes? @ -Yes, and I agree, it is accurate with regards to the patient's symptoms. Were old charts reviewed? @ -CTA of the chest from 08/17/23 obtained at [facility] demonstrating no evidence of a pulmonary embolus or other acute process. Differential Diagnosis? @ -Differential Chest Pain: Stable Angina, Unstable Angina, STEMI, NSTEMI Aortic Dissection, Pneumothorax, Musculoskeletal, Esophageal Spasm GERD, Cholecystitis, Pancreatitis, Zoster, this is not meant to be an all-inclusive list. EKG interpreted by me (3pts min.)? @ -EKG interpreted by me demonstrating the following: Sinus rhythm. Ventricular rate 82 bpm, AL interval 153 ms, QRS duration 86 ms, QTc 421 ms. X-rays interpreted by me (1pt min.)? @ -Chest x-ray obtained, my interpretation identifies no localized consolidations or infiltrates. CT interpreted by me (1pt min.)? @ -Not obtained U/S interpreted by me (1pt. min.)? @ -Not obtained What testing was considered but not performed? (CT, X-rays, U/S, labs)? Why? @ -None What meds were considered but not given? Why? @ -None Did you discuss the management of the patient with other professionals? @ -No Did you reconcile home meds? @ -No Was smoking cessation discussed for >3mins.? @ -No Was critical care preformed (if so, how long)? @ -No Were there social determinants of health that impacted care today? How? (Homelessness, low income, unemployed, alcoholism, drug addiction, transportation, low edu. Level, literacy, decrease access to med. care, custodial, rehab)? @ -No Was there de-escalation of care discussed even if they declined? (Discuss DNR or withdrawal of care, Hospice)? @ -No What co-morbidities impacted this encounter? (DM, HTN, Smoking, COPD, CAD, Cancer, CVA, Hep., AIDS, mental health diagnosis, sleep apnea, morbid obesity)? @ -Hx of PE, HTN Was patient admitted / discharged? @ -Discharged. Lab work unremarkable including a negative troponin and negative D-dimer. Chest x-ray reveals no acute process. Blood work and imaging from [facility] obtained 2 days ago was faxed over for review. Patient had a CTA of the chest that day demonstrating no evidence of a pulmonary embolus or other acute process. Given the recent negative CT scan and negative blood work here, advised that a repeat CT scan is not indicated at this time. The sharp chest pain that is worse with inhalation may be related to pleurisy/pleuritis. Pain was also reproducible on exam suggestive of potential musculoskeletal process. Advised she follow-up with [facility] regarding her symptoms in the event the pulmonary hypertension is contributing to this or she is having residual symptoms from the PE. Prescription for naproxen, Robaxin, and albuterol inhaler provided with dosing instructions reviewed. Patient discharged home in stable condition. Undiagnosed new problem with uncertain prognosis? @ -None Drug Therapy requiring intensive monitoring for toxicity (Heparin, Nitro, Insulin, Cardizem)? @ -None Were any procedures done? @ -None Diagnosis/symptom? @ -Shortness of breath, pleurisy/pleuritis Acute, or Chronic, or Acute on Chronic? @ -Acute Uncomplicated (without systemic symptoms) or Complicated (systemic symptoms)? @ -Uncomplicated Side effects of treatment? @ -None Exacerbation, Progression, or Severe Exacerbation] @ -Not applicable Poses a threat to life or bodily function? @ -No Return precautions reviewed in depth, the patient is instructed to return to the emergency department with any new, worsening, or concerning symptoms. Patient verbalized understanding. This case was discussed in detail with the attending ED physician, Dr. Iverson. Presentation, findings, and treatment plan discussed in detail as well. Disposition Clinical Impression: Pleurisy, Shortness of breath Disposition: HOME SELF-CARE Instructions (If sedation given, give patient instructions): Pleurisy (ED), Dyspnea (ED) Additional Instructions: Return to the emergency department with any new, worsening, or concerning symptoms. Take the naproxen twice daily with Tylenol as needed for pain relief. You can try taking the Robaxin as 1 to 2 tablets up to 3-4 times daily to see if that offers you any benefit as well. You can also try using the albuterol inhaler every 4-6 hours to see if that helps with your shortness of breath. Follow up with your primary care provider in 1-2 days. Prescriptions: Albuterol Sulfate [Albuterol Sulfate Hfa] 1 - 2 puff PO Q4-6H PRN #8.5 gm PRN Reason: Shortness Of Breath Naproxen Sodium 550 mg PO BID PRN #30 tablet PRN Reason: Pain methocarbamoL [Robaxin-750] 1,500 mg PO TID PRN #30 tab PRN Reason: Pain Is patient prescribed a controlled substance at d/c from ED?: No Referrals: Robin Lutz DO [Primary Care Provider] - 1-2 days Time of Disposition: 10:36
[2023-08-19] MEDS: SODIUM CHLORIDE 0.9% 1,000 ML IV STA (08:44)
[2023-08-19] MEDS: KETOROLAC 15 MG/ML 1 ML VIAL IVP STA ×2 (08:45→11:04)
[2023-08-19] MEDS: ASPIRIN 81 MG PO STA (08:50)
[2023-08-19 08:57] VITALS: RESP 16
[2023-08-19 09:00] LABS: Basophils # (A) 0.1 k/uL (0-0.2); Basophils % (A) 1 %; Eosinophils # (A) 0.2 k/uL (0-0.7); Eosinophils % (A) 3 %; HCT 41.1 % (34.0-46.0); HGB 13.1 gm/dL (11.4-16.0); Lymphocytes # (A) 1.9 k/uL (1.0-4.8); Lymphocytes % (A) 28 %; MCH 26.9 pg (25.0-35.0); MCHC 31.9 g/dL (31.0-37.0); MCV 84.4 fL (80.0-100.0); Mean Platelet Volume 8.4; Monocytes # (A) 0.3 k/uL (0-1.0); Monocytes % (A) 5 %; Neutrophils # (A) 4.3 k/uL (1.3-7.7); Neutrophils % (A) 62 %; Platelet Count 234 k/uL (150-450); RBC 4.87 m/uL (3.80-5.40); RDW 13.8 % (11.5-15.5); WBC 6.9 k/uL (3.8-10.6)
[2023-08-19 09:19] LABS: HCG,Qualitative Serum Not Detected
[2023-08-19 09:24] LABS: INR 0.9 (<1.2); Partial Thromboplastin Time 24.3 sec (22.0-30.0); Prothrombin Time 9.7 sec (10.0-12.5)
[2023-08-19] MEDS: ONDANSETRON 4 MG/2 ML VIAL IVP STA (09:33)
[2023-08-19 09:34] LABS: ALT 21 U/L (4-34); African American GFR (CKD) >90 (>60 ml/min/1.73 sqM); Albumin 3.7 g/dL (3.5-5.0); Amylase 38 U/L (30-110); Anion Gap 7 mmol/L; Blood Urea Nitrogen 12 mg/dL (7-17); Calcium 8.8 mg/dL (8.4-10.2); Carbon Dioxide 24 mmol/L (22-30); Chloride 108 mmol/L (98-107); Glucose 102 mg/dL (74-99); Lipase 96 U/L (23-300); Non-African American GFR(CKD) >90 (>60 ml/min/1.73 sqM); Sodium 139 mmol/L (137-145); Total Bilirubin 0.7 mg/dL (0.2-1.3)
[2023-08-19] MEDS: MORPHINE SULFATE 4 MG/ML SYRINGE IVP STA (09:34)
[2023-08-19 09:35] LABS: AST 30 U/L (14-36); Alkaline Phosphatase 81 U/L (38-126); Magnesium 1.9 mg/dL (1.6-2.3); Potassium 4.5 mmol/L (3.5-5.1)
[2023-08-19 09:42] LABS: NT-Pro-B-Type Natriuretic Pept 187 pg/mL
--- NOTE | 2023-08-19 09:58 | XR ---
EXAMINATION TYPE: XR chest 2V DATE OF EXAM: 08/19/2023 8:54 AM CLINICAL INDICATION:Female, 37 years old with history of Chest Pain; [facility] COMPARISON: 06/25/2023 TECHNIQUE: XR chest 2V. Frontal and lateral views of the chest.. FINDINGS: Lines/Tubes/Devices: EKG leads overlie the chest. No indwelling lines are seen. Heart/mediastinum: Heart size is normal. Mediastinum appears normal. Pulmonary vascularity: Not increased, Lungs/Pleura: There is no evidence of pleural effusion, focal consolidation, or pneumothorax. Musculoskeletal: No acute osseous abnormality demonstrated in the limits of the exam. Other findings: None. IMPRESSION: No acute findings, or significant interval change.
[2023-08-19] MEDS: ACET/COD 300 MG/30 MG STARTER PACK 6 TAB BTL PO STA (10:58)
[2023-08-19] MEDS: DEXAMETHASONE SOD PHOSPHATE 10 MG/ML 1 ML VIAL IVP STA (11:03)
[2023-08-19] MEDS: HYDROmorphone 0.5 MG/0.5 ML SYRINGE IVP STA (11:08)
[2023-08-19 11:25] VITALS: BP 136/70; PULSE 78; TEMP 98
== END 2023-08-19 11:30 | disposition home or self-care (01) ==
LOC: EC 07:49
DX: R09.1 Pleurisy (principal); R06.02 Shortness of breath; I10 Essential (primary) hypertension; Z86.711 Personal history of pulmonary embolism; Z79.01 Long term (current) use of anticoagulants; Z79.899 Other long term (current) drug therapy
CPT/HCPCS: 36415; 93005; 85379; 83880; 80053; 82150; 83690; 83735; 84484; 85025; 85610; 85730; 84703; 87636; 71046; 99285; 96374; 96375 ×4; 96376; 96361; J2270; J1100; J2405; J1885; J1170

== ENCOUNTER → 2023-09-05 | Outpatient (CLI) | payer BC ==
[2023-09-05 18:29] LABS: Basophils # (A) 0.06 X 10*3/uL (0.00-0.10); Basophils % (A) 0.7 %; Eosinophils # (A) 0.23 X 10*3/uL (0.04-0.35); Eosinophils % (A) 2.8 %; HCT 41.9 % (37.2-46.3); HGB 13.4 g/dL (12.0-15.0); Lymphocytes % (A) 31.4 %; MCH 26.6 pg (27.0-32.0); MCV 83.1 FL (80.0-97.0); Mean Platelet Volume 10.8 FL (9.5-12.2); Monocytes # (A) 0.51 X 10*3/uL (0.20-1.00); Monocytes % (A) 6.2 %; NRBC Per 100 WBC 0 X 10*3/uL (0.00-0.01); Neutrophils # (A) 4.85 X 10*3/uL (1.80-7.70); Neutrophils % (A) 58.7 %; Platelet Count 294 X 10*3/uL (140-440); RBC 5.04 X 10*6/uL (4.10-5.20); RDW 14.2 % (11.5-14.5); WBC 8.27 X 10*3/uL (4.50-10.00)
[2023-09-05 18:57] LABS: ALT 21 U/L (8-44); AST 18 U/L (13-35); Albumin/Globulin Ratio 1.33 Ratio (1.60-3.17); Alkaline Phosphatase 115 U/L (41-126); Blood Urea Nitrogen 10.8 mg/dL (9.0-27.0); Carbon Dioxide 25.1 mmol/L (21.6-31.8); Chloride 102 mmol/L (96-109); Glucose 107 mg/dL (70-110); Potassium 4.3 mmol/L (3.5-5.5); Sodium 140 mmol/L (135-145); Total Bilirubin 0.4 mg/dL (0.3-1.2)
[2023-09-05 19:34] LABS: Erythrocyte Sedimentation Rate 44 mm/Hr (0-20)
[2023-09-05 20:18] LABS: Gliadin AB IgA, Deaminated Negative (Negative); Gliadin AB IgA, Unit <0.5 U/mL; Gliadin AB IgG, Deaminated Negative (Negative); Gliadin AB IgG, Unit <0.4 U/mL
== END | disposition home or self-care (01) ==
LOC: LABWHC1 13:07
PROVIDERS: ATTEND Internal Medicine Gastroenterology
DX: K76.0 Fatty (change of) liver, not elsewhere classified (principal); K52.9 Noninfective gastroenteritis and colitis, unspecified
CPT/HCPCS: 36415; 80053; 81596; 82653; 83516; 85025; 85652; 86140

== ENCOUNTER 2023-09-12 17:16 | Emergency (ER) | payer BC ==
[2023-09-12 17:33] VITALS: TEMP 98.2
--- NOTE | 2023-09-12 18:24 | ED ---
General Adult HPI - General Chief complaint: Chest Pain Stated complaint: Post op catheter chest pain Time Seen by Provider: 09/12/23 18:23 Source: patient, family Mode of arrival: ambulatory Limitations: no limitations - History of Present Illness Initial comments: Patient presents to the ED stating that she had a right heart cath performed at [facility] yesterday, and she states that she has been having diffuse chest pressure since being discharged from the hospital yesterday. Patient states that she called them today, and she was advised to come to the ED for further evaluation. Patient states that "it feels like they are still performing the cath and moving around inside of me". She admits to having mild associated dyspnea. Patient states that she has a history of pulmonary embolism, but she states that her right heart cath performed yesterday did not show any pulmonary embolism. She denies fever or chills, headache, focal numbness/weakness/neuro deficit, visual changes, speech difficulty, neck/arm/jaw/back pain, pleuritic pain, cough or cold symptoms, palpitations, dizziness, nausea/vomiting/diaphoresis, abdominal pain, diarrhea, bloody or melanotic stool, dysuria or urinary symptoms, decreased urine output, leg or calf swelling or pain, or any other symptoms or complaints. - Related Data Home Medications Medication Instructions Recorded Confirmed Albuterol Inhaler [Ventolin Hfa 2 puff INHALATION RT-Q6H PRN 07/22/22 01/24/23 Inhaler] Pantoprazole [Protonix] 40 mg PO DAILY 07/22/22 01/24/23 Acetaminophen Tab [Tylenol] 1,000 mg PO Q6HR PRN 10/08/22 01/24/23 Apixaban [Eliquis] 5 mg PO BID 10/08/22 01/24/23 Losartan Potassium 50 mg PO DAILY 11/08/22 01/24/23 Prochlorperazine [Compazine] 5 mg PO BID PRN 01/24/23 01/24/23 Previous Rx's Medication Instructions Recorded Metoprolol Succinate (ER) [Toprol 25 mg PO DAILY #90 tab 11/11/22 Xl] Amoxic-Pot Clav 875-125Mg 1 tab PO BID 7 Days #14 tab 04/30/23 [Augmentin 875-125] Albuterol Sulfate [Albuterol 1 - 2 puff PO Q4-6H PRN #8.5 gm 08/19/23 Sulfate Hfa] Naproxen Sodium 550 mg PO BID PRN #30 tablet 08/19/23 methocarbamoL [Robaxin-750] 1,500 mg PO TID PRN #30 tab 08/19/23 Allergies Allergy/AdvReac Type Severity Reaction Status Date / Time No Known Allergies Allergy Verified 06/25/23 17:28 Review of Systems ROS Statement: Those systems with pertinent positive or pertinent negative responses have been documented in the HPI. ROS Other: All systems not noted in ROS Statement are negative. Past Medical History Past Medical History: Deep Vein Thrombosis (DVT), Hypertension, Pneumonia, Pulmonary Embolus (PE), Rheumatoid Arthritis (RA) Additional Past Medical History / Comment(s): Saddle PE, DVT, PVCS History of Any Multi-Drug Resistant Organisms: None Reported Past Surgical History: Adenoidectomy, Tonsillectomy Past Psychological History: No Psychological Hx Reported Smoking Status: Never smoker Past Alcohol Use History: None Reported Past Drug Use History: None Reported General Exam Limitations: no limitations General appearance: alert, in no apparent distress ENT exam: Present: mucous membranes moist Neck exam: Present: other (Trachea is in midline) Respiratory exam: Present: normal lung sounds bilaterally. Absent: respiratory distress, wheezes, rales, rhonchi, stridor, chest wall tenderness Cardiovascular Exam: Present: regular rate, normal rhythm, normal heart sounds, other (Normal radial pulses bilaterally) GI/Abdominal exam: Present: soft, other (Obese abdomen). Absent: tenderness, guarding Extremities exam: Present: other (Negative Homans' sign bilaterally). Absent: tenderness, pedal edema, calf tenderness Neurological exam: Present: alert, oriented X3, CN II-XII intact. Absent: motor sensory deficit Skin exam: Present: warm, dry, normal color Course Vital Signs 09/12/23 09/12/23 09/12/23 17:29 18:49 19:00 Temperature 98.2 F Pulse Rate 79 80 80 Respiratory 20 17 17 Rate Blood Pressure 156/90 142/94 127/76 O2 Sat by Pulse 96 96 96 Oximetry 09/12/23 19:48 Temperature Pulse Rate 80 Respiratory 18 Rate Blood Pressure 127/76 O2 Sat by Pulse Oximetry - Reevaluation(s) Reevaluation #1: 09/12/23 20:06 Patient denies development of any new pain or symptoms while in the ED. Patient remains alert and breathing comfortably with a normal room air oxygen saturation. Patient is aware of her test results, and she feels comfortable being discharged home at this time. Patient was counseled about chest pain, and she was clearly explained return and follow-up instructions. Patient was in structed to follow-up closely with her primary care provider. EKG Findings - EKG Comments: EKG Findings:: ED physician interpretation (interpreted by me): Normal sinus rhythm, ventricular rate of 81 bpm, normal UT and QRS intervals, normal QT interval, normal axis, no ST or T wave abnormality, question premature complexes versus motion artifact Medical Decision Making - Medical Decision Making Was pt. sent in by a medical professional or institution ([facility], [employer], urgent care, hospital, or [place] health care facility...) When possible be specific @ -No Did you speak to anyone other than the patient for history (EMS, parent, family, police, friend...)? What history was obtained from this source @ -No Did you review nursing and triage notes (agree or disagree)? Why? @ -I reviewed and agree with nursing and triage notes Were old charts reviewed (outside hosp., previous admission, EMS record, old EKG, old radiological studies, urgent care reports/EKG's, [place] health care facility records)? Report findings @ -No old charts were reviewed Differential Diagnosis (chest pain, altered mental status, abdominal pain women, abdominal pain men, vaginal bleeding, weakness, fever, dyspnea, syncope, headache, dizziness, GI bleed, back pain, seizure, CVA, palpatations, mental health, musculoskeletal)? @ -Differential Chest Pain: Stable Angina, Unstable Angina, STEMI, NSTEMI, Aortic Dissection, Pneumothorax, Musculoskeletal, Esophageal Spasm, GERD, pulmonary embolism, pleurisy, pleural effusion, this is not meant to be an all-inclusive list. EKG interpreted by me (3pts min.). @ -As above X-rays interpreted by me (1pt min.). @ -Chest x-ray was reviewed myself and shows no acute abnormality. I agree with the radiologist's interpretation as above. CT interpreted by me (1pt min.). @ -None done U/S interpreted by me (1pt. min.). @ -None done What testing was considered but not performed or refused? (CT, X-rays, U/S, labs)? Why? @ -None What meds were considered but not given or refused? Why? @ -None Did you discuss the management of the patient with other professionals (professionals i.e. , PA, [employer], lab, RT, psych nurse, social work therapist, conveyor tender [employer] mixing [employer], teacher, air defense control officer, telephonic nurse case manager)? Give summary @ -No Was smoking cessation discussed for >3mins.? @ -No Was critical care preformed (if so, how long)? @ -No Were there social determinants of health that impacted care today? How? (Homelessness, low income, unemployed, alcoholism, drug addiction, transportation, low edu. Level, literacy, decrease access to med. care, usp, rehab)? @ -No Was there de-escalation of care discussed even if they declined (Discuss DNR or withdrawal of care, Hospice)? DNR status @ -No What co-morbidities impacted this encounter? (DM, HTN, Smoking, COPD, CAD, Cancer, CVA, ARF, Chemo, Hep., AIDS, mental health diagnosis, sleep apnea, morbid obesity)? @ -None Was patient admitted / discharged? Hospital course, mention meds given and route, prescriptions, significant lab abnormalities, going to OR and other pertinent info. @ -Patient reports having constant chest pain since her cardiac cath procedure yesterday. Patient's vital signs are fairly normal/stable. Patient's labs are fairly unremarkable, including a normal D-dimer and normal troponin. Patient's EKG and chest x-ray are also fairly unremarkable. I do not suspect an emergent medical condition at this time. Will discharge patient home at this time. Patient feels comfortable with this plan. Undiagnosed new problem with uncertain prognosis? @ -No Drug Therapy requiring intensive monitoring for toxicity (Heparin, Nitro, Insulin, Cardizem)? @ -No Were any procedures done? @ -No Diagnosis/symptom? @ -Chest pain Acute, or Chronic, or Acute on Chronic? @ -Acute Uncomplicated (without systemic symptoms) or Complicated (systemic symptoms)? @ -Default Side effects of treatment? @ -No Exacerbation, Progression, or Severe Exacerbation? @ -No Poses a threat to life or bodily function? How? (Chest pain, [place], [place], pneumonia, PE, COPD, DKA, ARF, appy, cholecystitis, CVA, Diverticulitis, Homicidal, Suicidal, threat to staff... and all critical care pts) @ -No - Lab Data Result diagrams: 09/12/23 18:38 09/12/23 18:38 Lab Results 09/12/23 09/12/23 09/12/23 Range/Units 18:38 18:38 18:38 WBC 10.1 (3.8-10.6) k/uL RBC 5.17 (3.80-5.40) m/uL Hgb 14.2 (11.4-16.0) gm/dL Hct 42.3 (34.0-46.0) % MCV 81.9 (80.0-100.0) fL MCH 27.4 (25.0-35.0) pg MCHC 33.4 (31.0-37.0) g/dL RDW 13.7 (11.5-15.5) % Plt Count 290 (150-450) k/uL MPV 7.6 Neutrophils % 65 % Lymphocytes % 25 % Monocytes % 5 % Eosinophils % 3 % Basophils % 1 % Neutrophils # 6.6 (1.3-7.7) k/uL Lymphocytes # 2.6 (1.0-4.8) k/uL Monocytes # 0.5 (0-1.0) k/uL Eosinophils # 0.3 (0-0.7) k/uL Basophils # 0.1 (0-0.2) k/uL PT 10.0 (10.0-12.5) sec INR 0.9 (<1.2) APTT 25.6 (22.0-30.0) sec D-Dimer 0.59 (<0.60) mg/L FEU Sodium 135 L (137-145) mmol/L Potassium 4.7 (3.5-5.1) mmol/L Chloride 103 (98-107) mmol/L Carbon Dioxide 24 (22-30) mmol/L Anion Gap 8 mmol/L BUN 10 (7-17) mg/dL Creatinine 0.48 L (0.52-1.04) mg/dL Est GFR (CKD-EPI)AfAm >90 (>60 ml/min/1.73 sqM) Est GFR (CKD-EPI)NonAf >90 (>60 ml/min/1.73 sqM) Glucose 98 (74-99) mg/dL Calcium 9.2 (8.4-10.2) mg/dL Magnesium 1.8 (1.6-2.3) mg/dL Total Bilirubin 0.8 (0.2-1.3) mg/dL AST 31 (14-36) U/L ALT 20 (4-34) U/L Alkaline Phosphatase 89 (38-126) U/L Troponin I (0.000-0.034) ng/mL Total Protein 7.5 (6.3-8.2) g/dL Albumin 4.2 (3.5-5.0) g/dL 09/12/23 Range/Units 18:38 WBC (3.8-10.6) k/uL RBC (3.80-5.40) m/uL Hgb (11.4-16.0) gm/dL Hct (34.0-46.0) % MCV (80.0-100.0) fL MCH (25.0-35.0) pg MCHC (31.0-37.0) g/dL RDW (11.5-15.5) % Plt Count (150-450) k/uL MPV Neutrophils % % Lymphocytes % % Monocytes % % Eosinophils % % Basophils % % Neutrophils # (1.3-7.7) k/uL Lymphocytes # (1.0-4.8) k/uL Monocytes # (0-1.0) k/uL Eosinophils # (0-0.7) k/uL Basophils # (0-0.2) k/uL PT (10.0-12.5) sec INR (<1.2) APTT (22.0-30.0) sec D-Dimer (<0.60) mg/L FEU Sodium (137-145) mmol/L Potassium (3.5-5.1) mmol/L Chloride (98-107) mmol/L Carbon Dioxide (22-30) mmol/L Anion Gap mmol/L BUN (7-17) mg/dL Creatinine (0.52-1.04) mg/dL Est GFR (CKD-EPI)AfAm (>60 ml/min/1.73 sqM) Est GFR (CKD-EPI)NonAf (>60 ml/min/1.73 sqM) Glucose (74-99) mg/dL Calcium (8.4-10.2) mg/dL Magnesium (1.6-2.3) mg/dL Total Bilirubin (0.2-1.3) mg/dL AST (14-36) U/L ALT (4-34) U/L Alkaline Phosphatase (38-126) U/L Troponin I <0.012 (0.000-0.034) ng/mL Total Protein (6.3-8.2) g/dL Albumin (3.5-5.0) g/dL - Radiology Data Chest x-ray: No acute cardiopulmonary process. Disposition Clinical Impression: Chest pain Disposition: HOME SELF-CARE Condition: Stable Instructions (If sedation given, give patient instructions): Chest Pain (ED) Additional Instructions: Return to the ER immediately should you develop new or worsening pain, increased shortness of breath, a fever, vomiting, feeling dizzy or faint, or new or worsening symptoms. Follow-up closely with your primary care provider. Is patient prescribed a controlled substance at d/c from ED?: No Referrals: Robin Lutz DO [Primary Care Provider] - 1-2 days Time of Disposition: 20:10
--- NOTE | 2023-09-12 18:24 | XR ---
EXAMINATION TYPE: XR chest 2V DATE OF EXAM: 09/12/2023 COMPARISON: 08/19/2023 HISTORY: Chest pain TECHNIQUE: Frontal and lateral views of the chest are obtained. FINDINGS: There is no focal air space opacity. No evidence for pneumothorax. No pleural effusion. The cardiac silhouette size is within normal limits. The osseous structures are grossly intact. IMPRESSION: 1. No acute cardiopulmonary process.
[2023-09-12 19:00] LABS: Basophils # (A) 0.1 k/uL (0-0.2); Basophils % (A) 1 %; Eosinophils # (A) 0.3 k/uL (0-0.7); Eosinophils % (A) 3 %; HCT 42.3 % (34.0-46.0); HGB 14.2 gm/dL (11.4-16.0); Lymphocytes # (A) 2.6 k/uL (1.0-4.8); Lymphocytes % (A) 25 %; MCH 27.4 pg (25.0-35.0); MCHC 33.4 g/dL (31.0-37.0); MCV 81.9 fL (80.0-100.0); Mean Platelet Volume 7.6; Monocytes # (A) 0.5 k/uL (0-1.0); Monocytes % (A) 5 %; Neutrophils # (A) 6.6 k/uL (1.3-7.7); Neutrophils % (A) 65 %; Platelet Count 290 k/uL (150-450); RBC 5.17 m/uL (3.80-5.40); RDW 13.7 % (11.5-15.5); WBC 10.1 k/uL (3.8-10.6)
[2023-09-12 19:26] LABS: ALT 20 U/L (4-34); African American GFR (CKD) >90 (>60 ml/min/1.73 sqM); Albumin 4.2 g/dL (3.5-5.0); Anion Gap 8 mmol/L; Blood Urea Nitrogen 10 mg/dL (7-17); Calcium 9.2 mg/dL (8.4-10.2); Carbon Dioxide 24 mmol/L (22-30); Chloride 103 mmol/L (98-107); Glucose 98 mg/dL (74-99); Non-African American GFR(CKD) >90 (>60 ml/min/1.73 sqM); Sodium 135 mmol/L (137-145); Total Bilirubin 0.8 mg/dL (0.2-1.3); Total Protein 7.5 g/dL (6.3-8.2)
[2023-09-12 19:42] LABS: INR 0.9 (<1.2); Partial Thromboplastin Time 25.6 sec (22.0-30.0)
[2023-09-12 19:46] LABS: AST 31 U/L (14-36); Alkaline Phosphatase 89 U/L (38-126); Magnesium 1.8 mg/dL (1.6-2.3); Potassium 4.7 mmol/L (3.5-5.1)
[2023-09-12 19:49] VITALS: RESP 18
[2023-09-12 21:02] VITALS: BP 130/79; PULSE 77
== END 2023-09-12 21:01 | disposition home or self-care (01) ==
LOC: EC 17:16
DX: R07.89 Other chest pain (principal)
CPT/HCPCS: 36415; 71046; 80053; 83735; 84484; 85025; 85379; 85610; 85730; 93005; 99285

== ENCOUNTER → 2023-09-27 | Outpatient (CLI) | payer BC | LOC: 3 N SLEEP 10:41 | PROVIDERS: ATTEND Internal Medicine | CPT/HCPCS: 99212 ==

== ENCOUNTER 2023-10-05 03:13 | Emergency (ER) | payer BC ==
[2023-10-05] MEDS ORDERED: KETOROLAC 15 MG/ML 1 ML VIAL ONE (04:25)
== END 2023-10-05 04:42 | disposition home or self-care (01) ==
LOC: EC 03:13
DX: M54.50 Low back pain, unspecified (principal)
CPT/HCPCS: 96372; 99283

== ENCOUNTER 2023-10-22 09:59 | Emergency (ER) | payer BC ==
[2023-10-22] MEDS: SODIUM CHLORIDE 0.9% 500 ML 500 ML IV STA (10:44)
[2023-10-22] MEDS: ONDANSETRON 4 MG/2 ML VIAL IVP STA (10:44)
[2023-10-22] MEDS: SODIUM CHLORIDE 0.9% 1,000 ML IV STA (10:44)
[2023-10-22 10:55] LABS: Basophils % (A) 0 %; Eosinophils # (A) 0.2 k/uL (0-0.7); Eosinophils % (A) 2 %; HCT 45.5 % (34.0-46.0); HGB 14.4 gm/dL (11.4-16.0); Lymphocytes # (A) 1.7 k/uL (1.0-4.8); Lymphocytes % (A) 16 %; MCHC 31.7 g/dL (31.0-37.0); MCV 82.2 fL (80.0-100.0); Mean Platelet Volume 7.4; Monocytes # (A) 0.4 k/uL (0-1.0); Monocytes % (A) 4 %; Neutrophils # (A) 8.1 k/uL (1.3-7.7); Neutrophils % (A) 77 %; Platelet Count 315 k/uL (150-450); RBC 5.54 m/uL (3.80-5.40); WBC 10.5 k/uL (3.8-10.6)
[2023-10-22 11:01] LABS: Appearance,Urine Cloudy (Clear); Bacteria,Urine Rare /hpf; Bilirubin,Urine Negative (Negative); Blood,Urine Negative (Negative); Color,Urine Yellow; Glucose,Urine (UA) Negative (Negative); Ketones,Urine Negative (Negative); Leukocyte Esterase,Urine Negative (Negative); Mucus,Urine Occasional /hpf; Nitrite,Urine Negative (Negative); PH, Urine 5.5 (5.0-8.0); Protein,Urine Trace (Negative); RBC,Urine 1 /hpf (0-5); Specific Gravity,Urine 1.027 (1.001-1.035); Squamous Epithelial Cell,Urine 1 /hpf (0-4); Urobilinogen,Urine <2.0 mg/dL (<2.0); WBC,Urine <1 /hpf (0-5)
[2023-10-22 11:17] LABS: ALT 20 U/L (4-34); AST 20 U/L (14-36); African American GFR (CKD) >90 (>60 ml/min/1.73 sqM); Albumin 4.1 g/dL (3.5-5.0); Alkaline Phosphatase 94 U/L (38-126); Anion Gap 7 mmol/L; Blood Urea Nitrogen 12 mg/dL (7-17); Calcium 9.3 mg/dL (8.4-10.2); Carbon Dioxide 29 mmol/L (22-30); Chloride 101 mmol/L (98-107); Glucose 114 mg/dL (74-99); Lipase 79 U/L (23-300); Non-African American GFR(CKD) >90 (>60 ml/min/1.73 sqM); Potassium 4.1 mmol/L (3.5-5.1); Sodium 137 mmol/L (137-145); Total Bilirubin 0.6 mg/dL (0.2-1.3); Total Protein 7.4 g/dL (6.3-8.2)
--- NOTE | 2023-10-22 11:20 | ED ---
Abdominal Pain HPI - General Chief Complaint: Abdominal Pain Stated Complaint: vomiting,abd pain Time Seen by Provider: 10/22/23 10:04 Source: patient, RN notes reviewed Mode of arrival: ambulatory Limitations: no limitations - History of Present Illness Initial Comments: 37-year-old female presents emergency department complaining lower abdominal pain, nausea vomiting. Symptoms have been present for the last 2 days. Patient reports possible fever she has no urinary frequency or dysuria she states it is worse with movement she denies any prior abdominal surgeries no flank pain denies chest pain or shortness of breath. - Related Data Home Medications Medication Instructions Recorded Confirmed Albuterol Inhaler [Ventolin Hfa 2 puff INHALATION RT-Q6H PRN 07/22/22 01/24/23 Inhaler] Pantoprazole [Protonix] 40 mg PO DAILY 07/22/22 01/24/23 Acetaminophen Tab [Tylenol] 1,000 mg PO Q6HR PRN 10/08/22 01/24/23 Apixaban [Eliquis] 5 mg PO BID 10/08/22 01/24/23 Losartan Potassium 50 mg PO DAILY 11/08/22 01/24/23 Prochlorperazine [Compazine] 5 mg PO BID PRN 01/24/23 01/24/23 Previous Rx's Medication Instructions Recorded Metoprolol Succinate (ER) [Toprol 25 mg PO DAILY #90 tab 11/11/22 Xl] Amoxic-Pot Clav 875-125Mg 1 tab PO BID 7 Days #14 tab 04/30/23 [Augmentin 875-125] Albuterol Sulfate [Albuterol 1 - 2 puff PO Q4-6H PRN #8.5 gm 08/19/23 Sulfate Hfa] Naproxen Sodium 550 mg PO BID PRN #30 tablet 08/19/23 methocarbamoL [Robaxin-750] 1,500 mg PO TID PRN #30 tab 08/19/23 Ondansetron Odt [Zofran Odt] 4 mg PO Q8HR PRN #10 tab 10/22/23 Allergies Allergy/AdvReac Type Severity Reaction Status Date / Time No Known Allergies Allergy Verified 10/22/23 10:02 Review of Systems ROS Statement: Those systems with pertinent positive or pertinent negative responses have been documented in the HPI. ROS Other: All systems not noted in ROS Statement are negative. Past Medical History Past Medical History: Deep Vein Thrombosis (DVT), Hypertension, Pneumonia, Pulmonary Embolus (PE), Rheumatoid Arthritis (RA) Additional Past Medical History / Comment(s): Saddle PE, DVT, PVCS History of Any Multi-Drug Resistant Organisms: None Reported Past Surgical History: Adenoidectomy, Tonsillectomy Past Psychological History: No Psychological Hx Reported Smoking Status: Never smoker Past Alcohol Use History: None Reported Past Drug Use History: None Reported General Exam Limitations: no limitations General appearance: alert, in no apparent distress Head exam: Present: atraumatic, normocephalic, normal inspection Eye exam: Present: normal appearance, PERRL, EOMI. Absent: scleral icterus, conjunctival injection, periorbital swelling Respiratory exam: Present: normal lung sounds bilaterally. Absent: respiratory distress, wheezes, rales, rhonchi, stridor Cardiovascular Exam: Present: regular rate, normal rhythm, normal heart sounds. Absent: systolic murmur, diastolic murmur, rubs, gallop, clicks GI/Abdominal exam: Present: soft, tenderness, normal bowel sounds. Absent: distended, guarding, rebound, rigid Back exam: Absent: CVA tenderness (R), CVA tenderness (L) Course Vital Signs 10/22/23 10/22/23 10:00 11:52 Temperature 97.9 F Pulse Rate 96 81 Respiratory 18 18 Rate Blood Pressure 144/93 125/83 O2 Sat by Pulse 99 97 Oximetry Medical Decision Making - Medical Decision Making Was pt. sent in by a medical professional or institution (, PA, DAIRY HUSBANDMAN, urgent care, hospital, or [place]...) When possible be specific @ -No Did you speak to anyone other than the patient for history (EMS, parent, family, police, friend...)? What history was obtained from this source @ -No Did you review nursing and triage notes (agree or disagree)? Why? @ -I reviewed and agree with nursing and triage notes Were old charts reviewed (outside hosp., previous admission, EMS record, old EKG, old radiological studies, urgent care reports/EKG's, [place] [facility] [place] records)? Report findings @ -No old charts were reviewed Differential Diagnosis (chest pain, altered mental status, abdominal pain women, abdominal pain men, vaginal bleeding, weakness, fever, dyspnea, syncope, headache, dizziness, GI bleed, back pain, seizure, CVA, palpatations, mental health, musculoskeletal)? @ -Differential Abdominal Pain Women: Appendicitis, Cholecystitis, diverticulosis, ischemic bowel, pancreatitis, hepatitis, UTI, gastroenteritis, AAA, incarcerated hernia, bowel obstruction, constipation, inflammatory bowel, hepatitis, peptic ulcer disease, splenic infarction, perforated viscus, vulvitis, ovarian torsion, PID, kidney stone, placenta abruption, this is not meant to be an all-inclusive list EKG interpreted by me (3pts min.). @ -None X-rays interpreted by me (1pt min.). @ -None done CT interpreted by me (1pt min.). @ -See pelvis showing no acute intra-abdominal process U/S interpreted by me (1pt. min.). @ -None done What testing was considered but not performed or refused? (CT, X-rays, U/S, labs)? Why? @ -None What meds were considered but not given or refused? Why? @ -None Did you discuss the management of the patient with other professionals (professionals i.e. , PA, DAIRY HUSBANDMAN, lab, RT, psych nurse, social science instructor, outbound sales consultant, teacher, special assets officer, upper caser)? Give summary @ -No Was smoking cessation discussed for >3mins.? @ -No Was critical care preformed (if so, how long)? @ -No Were there social determinants of health that impacted care today? How? (Homelessness, low income, unemployed, alcoholism, drug addiction, transportation, low edu. Level, literacy, decrease access to med. care, half-way, rehab)? @ -No Was there de-escalation of care discussed even if they declined (Discuss DNR or withdrawal of care, Hospice)? DNR status @ -No What co-morbidities impacted this encounter? (DM, HTN, Smoking, COPD, CAD, Cancer, CVA, ARF, Chemo, Hep., AIDS, mental health diagnosis, sleep apnea, mor bid obesity)? @ -None Was patient admitted / discharged? Hospital course, mention meds given and rou te, prescriptions, significant lab abnormalities, going to OR and other pertinent info. @ -Discharge patient feels great empiric antibiotics and Toradol. Patient has no acute findings. This more likely related to gastroenteritis patient will follow-up tomorrow for recheck return for any worsening change in symptoms. Undiagnosed new problem with uncertain prognosis? @ -No Drug Therapy requiring intensive monitoring for toxicity (Heparin, Nitro, Insulin, Cardizem)? @ -No Were any procedures done? @ -No Diagnosis/symptom? @ -Gastroenteritis Acute, or Chronic, or Acute on Chronic? @ -Acute Uncomplicated (without systemic symptoms) or Complicated (systemic symptoms)? @ -Uncomplicated Side effects of treatment? @ -No Exacerbation, Progression, or Severe Exacerbation? @ -No Poses a threat to life or bodily function? How? (Chest pain, [place], [place], pneumonia, PE, COPD, DKA, ARF, appy, cholecystitis, CVA, Diverticulitis, Homicidal, Suicidal, threat to staff... and all critical care pts) @ -No - Lab Data Result diagrams: 10/22/23 10:45 10/22/23 10:45 Lab Results 10/22/23 10/22/23 10/22/23 Range/Units 10:45 10:45 10:45 WBC 10.5 (3.8-10.6) k/uL RBC 5.54 H (3.80-5.40) m/uL Hgb 14.4 (11.4-16.0) gm/dL Hct 45.5 (34.0-46.0) % MCV 82.2 (80.0-100.0) fL MCH 26.0 (25.0-35.0) pg MCHC 31.7 (31.0-37.0) g/dL RDW 14.0 (11.5-15.5) % Plt Count 315 (150-450) k/uL MPV 7.4 Neutrophils % 77 % Lymphocytes % 16 % Monocytes % 4 % Eosinophils % 2 % Basophils % 0 % Neutrophils # 8.1 H (1.3-7.7) k/uL Lymphocytes # 1.7 (1.0-4.8) k/uL Monocytes # 0.4 (0-1.0) k/uL Eosinophils # 0.2 (0-0.7) k/uL Basophils # 0.0 (0-0.2) k/uL Sodium (137-145) mmol/L Potassium (3.5-5.1) mmol/L Chloride (98-107) mmol/L Carbon Dioxide (22-30) mmol/L Anion Gap mmol/L BUN (7-17) mg/dL Creatinine (0.52-1.04) mg/dL Est GFR (CKD-EPI)AfAm (>60 ml/min/1.73 sqM) Est GFR (CKD-EPI)NonAf (>60 ml/min/1.73 sqM) Glucose (74-99) mg/dL Plasma Lactic Acid Carlos (0.7-2.0) mmol/L Calcium (8.4-10.2) mg/dL Total Bilirubin (0.2-1.3) mg/dL AST (14-36) U/L ALT (4-34) U/L Alkaline Phosphatase (38-126) U/L Total Protein (6.3-8.2) g/dL Albumin (3.5-5.0) g/dL Lipase (23-300) U/L Urine Color Yellow Urine Appearance Cloudy H (Clear) Urine pH 5.5 (5.0-8.0) Ur Specific [place] 1.027 (1.001-1.035) Urine Protein Trace H (Negative) Urine Glucose (UA) Negative (Negative) Urine Ketones Negative (Negative) Urine Blood Negative (Negative) Urine Nitrite Negative (Negative) Urine Bilirubin Negative (Negative) Urine Urobilinogen <2.0 (<2.0) mg/dL Ur Leukocyte Esterase Negative (Negative) Urine RBC 1 (0-5) /hpf Urine WBC <1 (0-5) /hpf Ur Squamous Epith Cells 1 (0-4) /hpf Urine Bacteria Rare H (None) /hpf Urine Mucus Occasional H (None) /hpf Urine HCG, Qual Not Detected (Not Detectd) 10/22/23 10/22/23 Range/Units 10:45 10:45 WBC (3.8-10.6) k/uL RBC (3.80-5.40) m/uL Hgb (11.4-16.0) gm/dL Hct (34.0-46.0) % MCV (80.0-100.0) fL MCH (25.0-35.0) pg MCHC (31.0-37.0) g/dL RDW (11.5-15.5) % Plt Count (150-450) k/uL MPV Neutrophils % % Lymphocytes % % Monocytes % % Eosinophils % % Basophils % % Neutrophils # (1.3-7.7) k/uL Lymphocytes # (1.0-4.8) k/uL Monocytes # (0-1.0) k/uL Eosinophils # (0-0.7) k/uL Basophils # (0-0.2) k/uL Sodium 137 (137-145) mmol/L Potassium 4.1 (3.5-5.1) mmol/L Chloride 101 (98-107) mmol/L Carbon Dioxide 29 (22-30) mmol/L Anion Gap 7 mmol/L BUN 12 (7-17) mg/dL Creatinine 0.66 (0.52-1.04) mg/dL Est GFR (CKD-EPI)AfAm >90 (>60 ml/min/1.73 sqM) Est GFR (CKD-EPI)NonAf >90 (>60 ml/min/1.73 sqM) Glucose 114 H (74-99) mg/dL Plasma Lactic Acid Carlos 1.0 (0.7-2.0) mmol/L Calcium 9.3 (8.4-10.2) mg/dL Total Bilirubin 0.6 (0.2-1.3) mg/dL AST 20 (14-36) U/L ALT 20 (4-34) U/L Alkaline Phosphatase 94 (38-126) U/L Total Protein 7.4 (6.3-8.2) g/dL Albumin 4.1 (3.5-5.0) g/dL Lipase 79 (23-300) U/L Urine Color Urine Appearance (Clear) Urine pH (5.0-8.0) Ur Specific [place] (1.001-1.035) Urine Protein (Negative) Urine Glucose (UA) (Negative) Urine Ketones (Negative) Urine Blood (Negative) Urine Nitrite (Negative) Urine Bilirubin (Negative) Urine Urobilinogen (<2.0) mg/dL Ur Leukocyte Esterase (Negative) Urine RBC (0-5) /hpf Urine WBC (0-5) /hpf Ur Squamous Epith Cells (0-4) /hpf Urine Bacteria (None) /hpf Urine Mucus (None) /hpf Urine HCG, Qual (Not Detectd) Disposition Clinical Impression: Gastroenteritis Disposition: HOME SELF-CARE Condition: Stable Instructions (If sedation given, give patient instructions): Gastroenteritis (ED) Additional Instructions: Please return to the Emergency Department if symptoms worsen or any other concerns. Prescriptions: Ondansetron Odt [Zofran Odt] 4 mg PO Q8HR PRN #10 tab PRN Reason: Nausea Is patient prescribed a controlled substance at d/c from ED?: No Referrals: Robin Lutz DO [Primary Care Provider] - 1-2 days Time of Disposition: 13:23
--- NOTE | 2023-10-22 12:44 | CT ---
EXAMINATION TYPE: CT abdomen pelvis w con DATE OF EXAM: 10/22/2023 COMPARISON: 12/31/2022 HISTORY: Abdominal pain CT DLP: 3031.4 mGycm Automated exposure control for dose reduction was used. TECHNIQUE: Helical acquisition of images was performed from the lung bases through the pelvis. CONTRAST: Performed without Oral Contrast and with IV Contrast, patient injected with 100 mL of Isovue 300. FINDINGS: The lung bases are clear. The gallbladder is normal without distention, wall thickening, pericholecystic fluid or gallstones. T here is no biliary ductal dilatation. There is persistent mild hepatomegaly. There are no focal liver masses. There is no focal mass or enl argement of the pancreas, spleen or adrenal glands. There is no solid renal mass or hydronephrosis and there is homogeneous contrast enhancement of the r enal parenchyma. The caliber the abdominal aorta is normal is no retroperitoneal adenopathy or hemorr angeles. The bowel loops are normal in caliber and there is no evidence of dilatation or obstruction. No infla mmatory changes are identified in the bowel wall or mesentery. There is no free intraperitoneal air or fluid. No pelvic mass, free fluid, abscess or adenopathy. The osseous structures and soft tissues are intact. IMPRESSION: Stable mild hepatomegaly with no other significant abnormality seen.
[2023-10-22] MEDS: KETOROLAC 15 MG/ML 1 ML VIAL IVP STA (12:52)
[2023-10-22] MEDS: METOCLOPRAMIDE 5 MG/ML 2 ML VIAL IVP STA (12:53)
[2023-10-22] MEDS: diphenhydrAMINE 50 MG/ML 1 ML VIAL IVP STA (12:53)
[2023-10-22 13:51] VITALS: BP 103/63; PULSE 85; RESP 16; TEMP 98.2
== END 2023-10-22 13:51 | disposition home or self-care (01) ==
LOC: EC 09:59
DX: K52.9 Noninfective gastroenteritis and colitis, unspecified (principal)
CPT/HCPCS: 36415; 74177; 80053; 81001; 81025; 83605; 83690; 85025; 96361; 96374; 99285

== ENCOUNTER 2024-04-24 12:39 | Emergency (ER) | payer BC ==
[2024-04-24 12:50] VITALS: RESP 20
--- NOTE | 2024-04-24 13:04 | ED ---
Lower Extremity Injury HPI - General Chief Complaint: Extremity Injury, Lower Stated Complaint: R knee pain Time Seen by Provider: 04/24/24 13:04 Source: patient, RN notes reviewed, old records reviewed Mode of arrival: ambulatory Limitations: no limitations - History of Present Illness Initial Comments: 38-year-old female presented to the ER for evaluation of right knee pain. She reports this been an ongoing issue over the past couple of years. She has seen a neurologist and had MRI completed and was told her knee is "inflamed". She reports her pain was controlled until the past 3 or 4 days which has been an uncontrolled posterior knee pain. She states it is making it difficult for her to ambulate, bend or use her right lower extremity. She has taken [id number] ibuprofen and Tylenol without relief of pain. Patient does admit to a history of DVTs in her right leg approximately 2 years ago. She is not currently on a blood thinner. Patient is a non-smoker and is not on control. No recent travel. Patient denies any paresthesias to the right lower extremity. No hip pain. Patient denies any chest pain, palpitations, shortness of breath, dizziness, lightheadedness or other complaints at this time. - Related Data Home Medications Medication Instructions Recorded Confirmed Albuterol Inhaler [Ventolin Hfa 2 puff INHALATION RT-Q6H PRN 07/22/22 01/24/23 Inhaler] Pantoprazole [Protonix] 40 mg PO DAILY 07/22/22 01/24/23 Acetaminophen Tab [Tylenol] 1,000 mg PO Q6HR PRN 10/08/22 01/24/23 Apixaban [Eliquis] 5 mg PO BID 10/08/22 01/24/23 Losartan Potassium 50 mg PO DAILY 11/08/22 01/24/23 Prochlorperazine [Compazine] 5 mg PO BID PRN 01/24/23 01/24/23 Previous Rx's Medication Instructions Recorded Metoprolol Succinate (ER) [Toprol 25 mg PO DAILY #90 tab 11/11/22 Xl] Amoxic-Pot Clav 875-125Mg 1 tab PO BID 7 Days #14 tab 04/30/23 [Augmentin 875-125] Albuterol Sulfate [Albuterol 1 - 2 puff PO Q4-6H PRN #8.5 gm 08/19/23 Sulfate Hfa] Naproxen Sodium 550 mg PO BID PRN #30 tablet 08/19/23 methocarbamoL [Robaxin-750] 1,500 mg PO TID PRN #30 tab 08/19/23 Ondansetron Odt [Zofran Odt] 4 mg PO Q8HR PRN #10 tab 10/22/23 Allergies Allergy/AdvReac Type Severity Reaction Status Date / Time No Known Allergies Allergy Verified 04/24/24 12:50 Review of Systems ROS Statement: Those systems with pertinent positive or pertinent negative responses have been documented in the HPI. ROS Other: All systems not noted in ROS Statement are negative. Past Medical History Past Medical History: Deep Vein Thrombosis (DVT), Hypertension, Pneumonia, Pulmonary Embolus (PE), Rheumatoid Arthritis (RA) Additional Past Medical History / Comment(s): Saddle PE, DVT, PVCS History of Any Multi-Drug Resistant Organisms: None Reported Past Surgical History: Adenoidectomy, Tonsillectomy Past Psychological History: No Psychological Hx Reported Smoking Status: Never smoker Past Alcohol Use History: None Reported Past Drug Use History: None Reported General Exam Limitations: no limitations General appearance: alert, in no apparent distress Respiratory exam: Present: normal lung sounds bilaterally. Absent: respiratory distress, wheezes, rales, rhonchi, stridor Cardiovascular Exam: Present: regular rate, normal rhythm, normal heart sounds. Absent: systolic murmur, diastolic murmur, rubs, gallop, clicks Extremities exam: Present: full ROM, tenderness (Right knee lateral joint line. Extensor mechanism intact. Mild edema noted), normal capillary refill Neurological exam: Present: alert, oriented X3, CN II-XII intact Skin exam: Present: warm, dry, intact, normal color. Absent: rash Course Vital Signs 04/24/24 04/24/24 12:47 14:33 Temperature 97.9 F 98.1 F Pulse Rate 79 70 Respiratory 20 20 Rate Blood Pressure 151/102 123/82 O2 Sat by Pulse 96 100 Oximetry Medical Decision Making - Medical Decision Making Was pt. sent in by a medical professional or institution (, PA, SINKER PULLER, urgent care, hospital, or [place] [facility] [place]...) When possible be specific @ -No Did you speak to anyone other than the patient for history (EMS, parent, family, police, friend...)? What history was obtained from this source @ -No Did you review nursing and triage notes (agree or disagree)? Why? @ -I reviewed and agree with nursing and triage notes Were old charts reviewed (outside hosp., previous admission, EMS record, old EKG, old radiological studies, urgent care reports/EKG's, [place] [facility] [place] records)? Report findings @ -No old charts were reviewed Differential Diagnosis (chest pain, altered mental status, abdominal pain women, abdominal pain men, vaginal bleeding, weakness, fever, dyspnea, syncope, headache, dizziness, GI bleed, back pain, seizure, CVA, palpatations, mental health, musculoskeletal)? @ -Differential Musculoskeletal: Muscular strain, contusion, ligament sprain, fracture, arthritis, septic arthritis, bursitis, cellulitis, muscle spasm, nerve compression, DVT, arterial occlusion, herpes zoster, electrolyte abnormality, tumor.... This is not meant to be in all inclusive list EKG interpreted by me (3pts min.). @ -None done X-rays interpreted by me (1pt min.). @ -None done CT interpreted by me (1pt min.). @ -None done U/S interpreted by me (1pt. min.). @ -Ultrasound venous Doppler right lower extremity showing no evidence of DVT. What testing was considered but not performed or refused? (CT, X-rays, U/S, labs)? Why? @ -None What meds were considered but not given or refused? Why? @ -None Did you discuss the management of the patient with other professionals (professionals i.e. , PA, SINKER PULLER, lab, RT, psych nurse, social work nurse, ruby engineer, teacher, ship officer, showcase trimmer)? Give summary @ -No Was smoking cessation discussed for >3mins.? @ -No Was critical care preformed (if so, how long)? @ -No Were there social determinants of health that impacted care today? How? (Homelessness, low income, unemployed, alcoholism, drug addiction, transportation, low edu. Level, literacy, decrease access to med. care, prison, rehab)? @ -No Was there de-escalation of care discussed even if they declined (Discuss DNR or withdrawal of care, Hospice)? DNR status @ -No What co-morbidities impacted this encounter? (DM, HTN, Smoking, COPD, CAD, Cancer, CVA, ARF, Chemo, Hep., AIDS, mental health diagnosis, sleep apnea, morbid obesity)? @ -History of DVT not currently on blood thinner. Was patient admitted / discharged? Hospital course, mention meds given and route , prescriptions, significant lab abnormalities, going to OR and other pertinent info. @ -Discharge. 38-year-old female presented the ER for evaluation of atraumatic right knee pain. Vitals within acceptable limits. Patient is neurovascularly intact. There is pain noted over lateral joint line. Patient is able to ambulate and bear weight. Given patient's presenting symptom of atraumatic knee pain with a history of DVTs not on thinners ultrasound venous Doppler was obtained and negative for evidence of DVT. Patient given ibuprofen for pain control in the ER. Upon reevaluation, patient resting comfortably on stretcher no signs of acute distress. Results discussed with patient, all questions answered. Advised patient to follow-up with orthopedics as pain may be related to soft tissue injury. Conservative treatment options discussed. Patient discharged in stable condition. Orthopedic referral given. Return parameters discussed. Patient verbally expressed understanding and agreement with care plan. Case discussed with ED attending, Dr. Hernandez. Undiagnosed new problem with uncertain prognosis? @ -No Drug Therapy requiring intensive monitoring for toxicity (Heparin, Nitro, Insulin, Cardizem)? @ -No Were any procedures done? @ -No Diagnosis/symptom? @ -Knee pain Acute, or Chronic, or Acute on Chronic? @ -Acute Uncomplicated (without systemic symptoms) or Complicated (systemic symptoms)? @ -Uncomplicated Side effects of treatment? @ -No Exacerbation, Progression, or Severe Exacerbation? @ -No Poses a threat to life or bodily function? How? (Chest pain, [place], [place], pneumonia, PE, COPD, DKA, ARF, appy, cholecystitis, CVA, Diverticulitis, Homicidal, Suicidal, threat to staff... and all critical care pts) @ -No - Radiology Data Radiology results: report reviewed, image reviewed Disposition Clinical Impression: Knee pain Disposition: HOME SELF-CARE Condition: Stable Instructions (If sedation given, give patient instructions): Knee Pain (ED) Additional Instructions: Follow-up with orthopedics. Return to the ER for any new or worsening concerns. Is patient prescribed a controlled substance at d/c from ED?: No Referrals: Robin Lutz DO [Primary Care Provider] - 1-2 days Cole Jay MD [STAFF PHYSICIAN] - 1-2 days Time of Disposition: 14:07
[2024-04-24] MEDS: IBUPROFEN 800 MG TAB PO STA (13:10)
--- NOTE | 2024-04-24 13:58 | US ---
EXAMINATION TYPE: US venous doppler duplex LE RT DATE OF EXAM: 04/24/2024 1:41 PM COMPARISON: 07/22/22 bilateral lower extremity venous ultrasound CLINICAL INDICATION: Female, 38 years old with history of knee pain hx dvt; pain in right knee x 3 da ys. Hx of DVT. Not on blood thinners, Pain TECHNIQUE: The lower extremity deep venous system is examined utilizing real time linear array sonog alon with graded compression, color doppler sonography, and spectral doppler. SIDE PERFORMED: Right FINDINGS: VESSELS IMAGED: Common Femoral Vein Deep Femoral Vein Greater Saphenous Vein * Femoral Vein Popliteal Vein Small Saphenous Vein * Proximal Calf Veins (* superficial vessels) Right Leg: No evidence for DVT, Color Doppler imaging shows patency of the vessels. Spectral wavefor ms are within normal limits. IMPRESSION: 1. No evidence of deep vein thrombosis of the right lower extremity. [facility], , 04/24/2024 1:55 PM
[2024-04-24 14:34] VITALS: BP 123/82; PULSE 70; TEMP 98.1
== END 2024-04-24 14:35 | disposition home or self-care (01) ==
LOC: EC 12:39
DX: M25.561 Pain in right knee (principal)
CPT/HCPCS: 99284

== ENCOUNTER 2024-06-10 10:31 | Emergency (ER) | payer BC ==
[2024-06-10 10:42] VITALS: RESP 18
[2024-06-10 11:24] LABS: Basophils # (A) 0.06 10*3/uL (0.00-0.10); Basophils % (A) 0.7 %; Eosinophils # (A) 0.19 10*3/uL (0.04-0.35); Eosinophils % (A) 2.4 %; HCT 40.7 % (37.2-46.3); HGB 13.5 g/dL (12.0-15.0); Lymphocytes # (A) 2.21 10*3/uL (0.90-5.00); Lymphocytes % (A) 27.4 %; MCH 27.6 pg (27.0-32.0); MCHC 33.2 g/dL (32.0-37.0); MCV 83.1 fL (80.0-97.0); Mean Platelet Volume 10.1 fL (9.5-12.2); Monocytes # (A) 0.52 10*3/uL (0.20-1.00); Monocytes % (A) 6.4 %; Neutrophils # (A) 5.09 10*3/uL (1.80-7.70); Platelet Count 286 10*3/uL (140-440); RDW 13.5 % (11.5-14.5); WBC 8.08 10*3/uL (4.50-10.00)
[2024-06-10 11:26] LABS: Appearance,Urine Clear (Clear); Bilirubin,Urine Negative (Negative); Blood,Urine Negative (Negative); Color,Urine Colorless; Glucose,Urine (UA) Negative (Negative); Ketones,Urine Negative (Negative); Leukocyte Esterase,Urine Negative (Negative); Nitrite,Urine Negative (Negative); PH, Urine 5.5 (5.0-8.0); Protein,Urine Negative (Negative); Specific Gravity,Urine 1.013 (1.001-1.035); Urobilinogen,Urine <2.0 mg/dL (<2.0)
[2024-06-10 11:34] LABS: ALT 20 U/L (4-34); AST 19 U/L (14-36); African American GFR (CKD) >90 (>60 ml/min/1.73 sqM); Albumin 3.7 g/dL (3.5-5.0); Alkaline Phosphatase 101 U/L (38-126); Amylase 36 U/L (30-110); Anion Gap 6 mmol/L; Blood Urea Nitrogen 9 mg/dL (7-17); Calcium 9.1 mg/dL (8.4-10.2); Carbon Dioxide 29 mmol/L (22-30); Chloride 102 mmol/L (98-107); Glucose 95 mg/dL (74-99); Lipase 105 U/L (23-300); Non-African American GFR(CKD) >90 (>60 ml/min/1.73 sqM); Potassium 3.9 mmol/L (3.5-5.1); Sodium 137 mmol/L (137-145); Total Bilirubin 0.7 mg/dL (0.2-1.3); Total Protein 6.9 g/dL (6.3-8.2)
--- NOTE | 2024-06-10 12:06 | ED ---
General Adult HPI - General Chief complaint: Abdominal Pain Stated complaint: ABD Pain/Vomiting Time Seen by Provider: 06/10/24 11:11 Source: patient Mode of arrival: ambulatory Limitations: no limitations - History of Present Illness Initial comments: Dictation was produced using [employer] dictation software. please excuse any grammatical, word or spelling errors. Chief Complaint: 38-year-old female with left lower quadrant pain History of Present Illness: Patient 38-year-old female for the last couple days has been dealing with left lower quadrant abdominal pain diarrhea. Patient has history of diverticulitis along with IBS. Denies any fever chills or night sweats. No vaginal bleeding or vaginal discharge. The ROS documented in this emergency department record has been reviewed and confirmed by me. Those systems with pertinent positive or negative responses have been documented in the HPI. All other systems are other negative and/or noncontributory. - Related Data Home Medications Medication Instructions Recorded Confirmed Albuterol Inhaler [Ventolin Hfa 2 puff INHALATION RT-Q6H PRN 07/22/22 01/24/23 Inhaler] Pantoprazole [Protonix] 40 mg PO DAILY 07/22/22 01/24/23 Acetaminophen Tab [Tylenol] 1,000 mg PO Q6HR PRN 10/08/22 01/24/23 Apixaban [Eliquis] 5 mg PO BID 10/08/22 01/24/23 Losartan Potassium 50 mg PO DAILY 11/08/22 01/24/23 Prochlorperazine [Compazine] 5 mg PO BID PRN 01/24/23 01/24/23 Previous Rx's Medication Instructions Recorded Metoprolol Succinate (ER) [Toprol 25 mg PO DAILY #90 tab 11/11/22 Xl] Amoxic-Pot Clav 875-125Mg 1 tab PO BID 7 Days #14 tab 04/30/23 [Augmentin 875-125] Albuterol Sulfate [Albuterol 1 - 2 puff PO Q4-6H PRN #8.5 gm 08/19/23 Sulfate Hfa] Naproxen Sodium 550 mg PO BID PRN #30 tablet 08/19/23 methocarbamoL [Robaxin-750] 1,500 mg PO TID PRN #30 tab 08/19/23 Ondansetron Odt [Zofran Odt] 4 mg PO Q8HR PRN #10 tab 10/22/23 Allergies Allergy/AdvReac Type Severity Reaction Status Date / Time No Known Allergies Allergy Verified 06/10/24 10:42 Review of Systems ROS Statement: Those systems with pertinent positive or pertinent negative responses have been documented in the HPI. ROS Other: All systems not noted in ROS Statement are negative. Past Medical History Past Medical History: Deep Vein Thrombosis (DVT), Hypertension, Pneumonia, Pulmonary Embolus (PE), Rheumatoid Arthritis (RA) Additional Past Medical History / Comment(s): Saddle PE, DVT, PVCS, Spinal stimulator History of Any Multi-Drug Resistant Organisms: None Reported Past Surgical History: Adenoidectomy, Tonsillectomy Past Psychological History: No Psychological Hx Reported Smoking Status: Never smoker Past Alcohol Use History: None Reported Past Drug Use History: None Reported General Exam - General Exam Comments Initial Comments: PHYSICAL EXAM: General Impression: Alert and oriented x3, not in acute distress HEENT: Normocephalic atraumatic, extra-ocular movements intact, pupils equal and reactive to light bilaterally, mucous membranes moist. Cardiovascular: Heart regular rate and rhythm Chest: Able to complete full sentences, no retractions, no tachypnea Abdomen: abdomen soft, left lower quadrant palpatory abdominal tenderness, non- distended, no organomegaly Musculoskeletal: Pulses present and equal in all extremities, no peripheral edema Motor: no focal deficits noted Neurological: CN II-XII grossly intact, no focal motor or sensory deficits noted Skin: Intact with no visualized rashes Psych: Normal affect and mood Limitations: no limitations Course Vital Signs 06/10/24 10:39 Temperature 98 F Pulse Rate 84 Respiratory 18 Rate Blood Pressure 158/92 O2 Sat by Pulse 99 Oximetry Medical Decision Making - Medical Decision Making Was pt. sent in by a medical professional or institution (, PA, MICROCOMPUTER TECHNICIAN, urgent care, hospital, or assisted...) When possible be specific @ -No Did you speak to anyone other than the patient for history (EMS, parent, family, police, friend...)? What history was obtained from this source @ -No Did you review nursing and triage notes (agree or disagree)? Why? @ -I reviewed and agree with nursing and triage notes Were old charts reviewed (outside hosp., previous admission, EMS record, old EKG, old radiological studies, urgent care reports/EKG's, assisted records)? Report findings @ -No old charts were reviewed Differential Diagnosis (chest pain, altered mental status, abdominal pain women, abdominal pain men, vaginal bleeding, musculoskeletal, weakness, fever, dyspnea, syncope, headache, dizziness, GI bleed, back pain, seizure, CVA, palpatations, mental health)? @ -*Differential Abdominal Pain Women: Appendicitis, Cholecystitis, diverticulosis, ischemic bowel, pancreatitis, hepatitis, UTI, gastroenteritis, AAA, incarcerated hernia, bowel obstruction, constipation, inflammatory bowel, hepatitis, peptic ulcer disease, splenic infarction, perforated viscus, vulvitis, ovarian torsion, PID, kidney stone, placenta abruption, this is not meant to be an all-inclusive list EKG interpreted by me (3pts min.). @ -None done X-rays interpreted by me (1pt min.). @ -None done CT interpreted by me (1pt min.). @ -CT abdomen pelvis shows no acute processes U/S interpreted by me (1pt. min.). @ -None done What testing was considered but not performed or refused? (CT, X-rays, U/S, labs)? Why? @ -None What meds were considered but not given or refused? Why? @ -None Was smoking cessation discussed for >3mins.? @ -No Were there social determinants of health that impacted care today? How? (Homelessness, low income, unemployed, alcoholism, drug addiction, transportation, low edu. Level, literacy, decrease access to med. care, care home, rehab)? @ -No Was there de-escalation of care discussed even if they declined (Discuss DNR or withdrawal of care, Hospice)? DNR status @ -No What co-morbidities impacted this encounter? (DM, HTN, Smoking, COPD, CAD, Cancer, CVA, ARF, Chemo, Hep., AIDS, mental health diagnosis, sleep apnea, morbid obesity)? @ -IBS, history of diverticulitis Was patient admitted / discharged? Hospital course, mention meds given and route, prescriptions, significant lab abnormalities, going to OR and other pertinent info. @ -38-year-old female with left lower quadrant abdominal pain. Vital signs stable. Laboratory evaluation is unremarkable. No leukocytosis. No labs are negative. Urinalysis negative. CT abdomen pelvis shows no acute processes. Patient stable to condition discharge. Did you discuss the management of the patient with other professionals (professionals i.e. , PA, MICROCOMPUTER TECHNICIAN, lab, RT, psych nurse, social service liaison, physical medicine physician, teacher, community services officer, case technician)? Give summary @ -No Was critical care preformed (if so, how long)? @ -No Undiagnosed new problem with uncertain prognosis? @ -No Drug Therapy requiring intensive monitoring for toxicity (Heparin, Nitro, Insulin, Cardizem)? @ -No Were any procedures done? @ -No Diagnosis/symptom? Acute, or Chronic, or Acute on Chronic? Uncomplicated (without systemic symptoms) or Complicated (systemic symptoms)? @ -Abdominal pain Side effects of treatment? @ -No Exacerbation, Progression, or Severe Exacerbation? @ -No Poses a threat to life or bodily function? How? (Chest pain, USA, CA, pneumonia, PE, COPD, DKA, ARF, appy, cholecystitis, CVA, Diverticulitis, Homicidal, Suicidal, threat to staff... and all critical care pts) @ -No - Lab Data Result diagrams: 06/10/24 11:11 06/10/24 11:11 Lab Results 06/10/24 06/10/24 06/10/24 Range/Units 11:11 11:11 11:20 WBC 8.08 (4.50-10.00) 10*3/uL RBC 4.90 (4.10-5.20) 10*6/uL Hgb 13.5 (12.0-15.0) g/dL Hct 40.7 (37.2-46.3) % MCV 83.1 (80.0-97.0) fL MCH 27.6 (27.0-32.0) pg MCHC 33.2 (32.0-37.0) g/dL Plt Count 286 (140-440) 10*3/uL MPV 10.1 (9.5-12.2) fL Immature Gran % (Auto) 0.1 % Neutrophils % 63.0 % Lymphocytes % 27.4 % Monocytes % 6.4 % Eosinophils % 2.4 % Basophils % 0.7 % Immature Gran # 0.01 (0.00-0.04) 10*3/uL Neutrophils # 5.09 (1.80-7.70) 10*3/uL Lymphocytes # 2.21 (0.90-5.00) 10*3/uL Monocytes # 0.52 (0.20-1.00) 10*3/uL Eosinophils # 0.19 (0.04-0.35) 10*3/uL Basophils # 0.06 (0.00-0.10) 10*3/uL Sodium 137 (137-145) mmol/L Potassium 3.9 (3.5-5.1) mmol/L Chloride 102 (98-107) mmol/L Carbon Dioxide 29 (22-30) mmol/L Anion Gap 6 mmol/L BUN 9 (7-17) mg/dL Creatinine 0.60 (0.52-1.04) mg/dL Est GFR (CKD-EPI)AfAm >90 (>60 ml/min/1.73 sqM) Est GFR (CKD-EPI)NonAf >90 (>60 ml/min/1.73 sqM) Glucose 95 (74-99) mg/dL Calcium 9.1 (8.4-10.2) mg/dL Total Bilirubin 0.7 (0.2-1.3) mg/dL AST 19 (14-36) U/L ALT 20 (4-34) U/L Alkaline Phosphatase 101 (38-126) U/L Total Protein 6.9 (6.3-8.2) g/dL Albumin 3.7 (3.5-5.0) g/dL Amylase 36 (30-110) U/L Lipase 105 (23-300) U/L Urine Color Colorless Urine Appearance Clear (Clear) Urine pH 5.5 (5.0-8.0) Ur Specific [place] 1.013 (1.001-1.035) Urine Protein Negative (Negative) Urine Glucose (UA) Negative (Negative) Urine Ketones Negative (Negative) Urine Blood Negative (Negative) Urine Nitrite Negative (Negative) Urine Bilirubin Negative (Negative) Urine Urobilinogen <2.0 (<2.0) mg/dL Ur Leukocyte Esterase Negative (Negative) Disposition Clinical Impression: Abdominal pain Disposition: HOME SELF-CARE Condition: Good Instructions (If sedation given, give patient instructions): Abdominal Pain (ED) Is patient prescribed a controlled substance at d/c from ED?: No Referrals: Robin Lutz DO [Primary Care Provider] - 1-2 days Time of Disposition: 13:49
--- NOTE | 2024-06-10 13:24 | CT ---
EXAMINATION TYPE: CT abdomen pelvis w con CT DLP: 2892.4 mGycm, Automated exposure control for dose reduction was used. DATE OF EXAM: 06/10/2024 1:09 PM COMPARISON: CT abdomen pelvis 10/22/2023, 12/31/2022, MR pancreas 05/16/2023 CLINICAL INDICATION:Female, 38 years old with history of abdominal pain; LLQ pain TECHNIQUE: Standard CT of the abdomen and pelvis following the administration of 100 cc of Isovue 3 00 IV contrast material. Coronal and sagittal reformats were performed. FINDINGS: LOWER CHEST: Visualized lung bases are clear. Mild prominence of the heart. Trace pericardial effusio n. ABDOMEN LIVER: No focal lesion. Mildly enlarged measuring 19.1 cm in CC dimension. GALLBLADDER AND BILE DUCTS: Unremarkable. PANCREAS: No pancreatic ductal dilatation, parenchymal calcifications or surrounding fluid collection s. There is some fatty infiltration and atrophy of the pancreatic tail is demonstrated. SPLEEN: Upper limits of normal size. ADRENAL GLANDS: Unremarkable. KIDNEYS AND URETERS: No evidence of hydronephrosis or renal calculus. The kidneys enhance symmetrical ly. Contrast is demonstrated within both collecting systems and proximal ureters on the delayed phase . No hydroureter or ureteral calculus identified. PELVIS BLADDER: Unremarkable REPRODUCTIVE: Unremarkable. ABDOMEN & PELVIS STOMACH AND BOWEL: Small hiatal hernia, duodenum is unremarkable. The appendix is within normal limit s. No focal bowel wall thickening or surrounding inflammatory changes. No evidence of bowel obstructi on. PERITONEUM: No evidence of pneumoperitoneum or free fluid. VASCULATURE: No evidence of aortic aneurysm. MUSCULOSKELETAL: No acute osseous abnormalities. DISH of the thoracic spine. There are 6 lumbar type vertebral bodies identified. Sacralization of L6 with fusion of the right transverse process with the sacrum at this level. LYMPH NODES: No evidence for lymphadenopathy. SOFT TISSUE/ABDOMINAL WALL: Small supra umbilical hernia containing fat and small mesenteric vessels. Defect measures up to 1.5 cm in diameter. Left gluteal stimulator powerpack device identified with 2 leads entering the spinal canal at the L1-L2 interspinous space. Coarse superiorly terminating in th e thoracic spine at the T8-T9 levels. IMPRESSION: 1. No CT evidence for acute abdominal/pelvic process. 2. Mild hepatomegaly. [facility], , 06/10/2024 1:22 PM
[2024-06-10 14:19] VITALS: BP 136/94; PULSE 74; TEMP 98.2
== END 2024-06-10 14:18 | disposition home or self-care (01) ==
LOC: EC 10:31
DX: R10.32 Left lower quadrant pain (principal); Z87.19 Personal history of other diseases of the digestive system
CPT/HCPCS: 36415; 80053; 82150; 83690; 85025; 81003; 74177; 99284; Q9967

== ENCOUNTER 2024-07-29 08:41 | Emergency (ER) | payer BC ==
[2024-07-29 08:47] VITALS: TEMP 97.9
--- NOTE | 2024-07-29 09:18 | ED ---
General Adult HPI - General Chief complaint: Chest Pain Stated complaint: Chest pain Time Seen by Provider: 07/29/24 08:50 Source: patient, RN notes reviewed, old records reviewed Mode of arrival: ambulatory Limitations: no limitations - History of Present Illness Initial comments: This is a 38-year-old female who presents to the emergency department stating she has a history of PE. Patient is no longer on any thinners. Patient states for the last 4 days she has had chest pain in the anterior aspect of her chest both on the right and the left side. Patient states anything she does does not seem to make it worse or better. Patient denies shortness of breath. Patient denies any fever chills or cough. Patient denies injury or trauma. Patient denies any abdominal pain. Patient [place] back pain. - Related Data Home Medications Medication Instructions Recorded Confirmed Pantoprazole [Protonix] 40 mg PO DAILY 07/22/22 07/29/24 Losartan Potassium 50 mg PO DAILY 11/08/22 07/29/24 Dicyclomine [Bentyl] 10 mg PO QID PRN 07/29/24 07/29/24 Furosemide [Lasix] 20 mg PO DAILY 07/29/24 07/29/24 Metoprolol Succinate (ER) [Toprol 25 mg PO PC-LUNCH@1200 07/29/24 07/29/24 Xl] Potassium Chloride [Klor-Con 20 20 meq PO HS 07/29/24 07/29/24 Packets] Rizatriptan Odt [Maxalt CAREER TECHNICAL EDUCATION INSTRUCTOR] 5 mg PO DAILY PRN 07/29/24 07/29/24 Semaglutide [Wegovy] 0.25 mg SQ TU 07/29/24 07/29/24 Sildenafil [Revatio] 20 mg PO TID 07/29/24 07/29/24 Previous Rx's Medication Instructions Recorded Ketorolac [Toradol] 10 mg PO Q8HR #15 tab 07/29/24 Allergies Allergy/AdvReac Type Severity Reaction Status Date / Time No Known Allergies Allergy Verified 07/29/24 11:10 Review of Systems ROS Statement: Those systems with pertinent positive or pertinent negative responses have been documented in the HPI. ROS Other: All systems not noted in ROS Statement are negative. Past Medical History Past Medical History: Deep Vein Thrombosis (DVT), Hypertension, Pneumonia, Pulmonary Embolus (PE), Rheumatoid Arthritis (RA) Additional Past Medical History / Comment(s): Saddle PE, DVT, PVCS, Spinal stimulator History of Any Multi-Drug Resistant Organisms: None Reported Past Surgical History: Adenoidectomy, Tonsillectomy Past Psychological History: No Psychological Hx Reported Smoking Status: Never smoker Past Alcohol Use History: None Reported Past Drug Use History: None Reported General Exam - General Exam Comments Initial Comments: GENERAL: Patient is well-developed and well-nourished. Patient is nontoxic and well- hydrated and is in mild distress. ENT: Neck is soft and supple. No significant lymphadenopathy is noted. Oropharynx is clear. Moist mucous membranes. Neck has full range of motion without eliciting any pain. EYES: The sclera were anicteric and conjunctiva were pink and moist. Extraocular movements were intact and pupils were equal round and reactive to light. Eyelids were unremarkable. PULMONARY: Unlabored respirations. Good breath sounds bilaterally. No audible rales rhonchi or wheezing was noted. CARDIOVASCULAR: There is a regular rate and rhythm without any murmurs gallops or rubs. ABDOMEN: Soft and nontender with normal bowel sounds. SKIN: Skin is clear with no lesions or rashes and otherwise unremarkable. NEUROLOGIC: Patient is alert and oriented x3. Cranial nerves II through XII are grossly intact. Motor and sensory are also intact. Normal speech, volume and content. Symmetrical smile. MUSCULOSKELETAL: Normal extremities with adequate strength and full range of motion. No lower extremity swelling or edema. No calf tenderness. LYMPHATICS: No significant lymphadenopathy is noted PSYCHIATRIC: Normal psychiatric evaluation. Limitations: no limitations Course Vital Signs 07/29/24 07/29/24 07/29/24 08:44 08:47 09:47 Temperature 97.9 F Pulse Rate 72 85 80 Respiratory 18 16 20 Rate Blood Pressure 147/82 146/86 111/56 O2 Sat by Pulse 98 98 98 Oximetry 07/29/24 07/29/24 10:00 10:48 Temperature Pulse Rate 65 86 Respiratory 16 20 Rate Blood Pressure 111/56 110/60 O2 Sat by Pulse 98 98 Oximetry Medical Decision Making - Medical Decision Making EKG is interpreted by myself. EKG shows a sinus rhythm at 76 bpm NV 148 QRS of 83 QT interval 386 QTc is 416. Patient's EKG shows no ST segment elevation or depression. Was pt. sent in by a medical professional or institution (CORDELL Kelly, PRESSER MACHINE, urgent care, hospital, or penitentiary...) When possible be specific @ -No Did you speak to anyone other than the patient for history (EMS, parent, family, police, friend...)? What history was obtained from this source @ -No Did you review nursing and triage notes (agree or disagree)? Why? @ -I reviewed and agree with nursing and triage notes Were old charts reviewed (outside hosp., previous admission, EMS record, old EKG, old radiological studies, urgent care reports/EKG's, penitentiary records)? Report findings @ -No old charts were reviewed Differential Diagnosis? @ -Differential Chest Pain: Stable Angina, Unstable Angina, STEMI, NSTEMI Aortic Dissection, Pneumothorax, Musculoskeletal, Esophageal Spasm GERD, Cholecystitis, Pancreatitis, Zoster, this is not meant to be an all-inclusive list. EKG interpreted by me (3pts min.). @ -As above X-rays interpreted by me (1pt min.). @ -Chest x-ray shows no acute abnormality CT interpreted by me (1pt min.). @ -CT of the chest shows no acute abnormality U/S interpreted by me (1pt. min.). @ -None done What testing was considered but not performed or refused? (CT, X-rays, U/S, labs)? Why? @ -None What meds were considered but not given or refused? Why? @ -None Did you discuss the management of the patient with other professionals (professionals i.e. CORDELL Kelly, PRESSER MACHINE, lab, RT, psych nurse, dialysis social worker, manager statistics, teacher, airconditioning drafting officer, case loader operator)? Give summary @ -No Was smoking cessation discussed for >3mins.? @ -No Was critical care preformed (if so, how long)? @ -No Were there social determinants of health that impacted care today? How? (Homelessness, low income, unemployed, alcoholism, drug addiction, transportation, low edu. Level, literacy, decrease access to med. care, intermediate, rehab)? @ -No Was there de-escalation of care discussed even if they declined (Discuss DNR or withdrawal of care, Hospice)? DNR status @ -No What co-morbidities impacted this encounter? (DM, HTN, Smoking, COPD, CAD, Cancer, CVA, ARF, Chemo, Hep., AIDS, mental health diagnosis, sleep apnea, morbid obesity)? @ -None Was patient admitted / discharged? Hospital course, mention meds given and route, prescriptions, significant lab abnormalities, going to OR and other pertinent info. @ -Patient received Toradol in the emergency department and did help with some of the pain. Other than that patient was having no further symptoms. Undiagnosed new problem with uncertain prognosis? @ -No Drug Therapy requiring intensive monitoring for toxicity (Heparin, Nitro, Insulin, Cardizem)? @ -No Were any procedures done? @ -No Diagnosis/symptom? @ -Atypical chest pain Acute, or Chronic, or Acute on Chronic? @ -Acute Uncomplicated (without systemic symptoms) or Complicated (systemic symptoms)? @ -Complicated Side effects of treatment? @ -No Exacerbation, Progression, or Severe Exacerbation? @ -No Poses a threat to life or bodily function? How? (Chest pain, USA, OR, pneumonia, PE, COPD, DKA, ARF, appy, cholecystitis, CVA, Diverticulitis, Homicidal, Suicidal, threat to staff... and all critical care pts) @ -No - Lab Data Result diagrams: 07/29/24 09:15 07/29/24 09:15 Lab Results 07/29/24 07/29/24 07/29/24 Range/Units 09:15 09:15 09:15 WBC 8.87 (4.50-10.00) 10*3/uL RBC 4.87 (4.10-5.20) 10*6/uL Hgb 13.4 (12.0-15.0) g/dL Hct 40.4 (37.2-46.3) % MCV 83.0 (80.0-97.0) fL MCH 27.5 (27.0-32.0) pg MCHC 33.2 (32.0-37.0) g/dL Plt Count 262 (140-440) 10*3/uL MPV 10.1 (9.5-12.2) fL Immature Gran % (Auto) 0.3 % Neutrophils % 63.7 % Lymphocytes % 24.8 % Monocytes % 8.0 % Eosinophils % 2.6 % Basophils % 0.6 % Immature Gran # 0.03 (0.00-0.04) 10*3/uL Neutrophils # 5.65 (1.80-7.70) 10*3/uL Lymphocytes # 2.20 (0.90-5.00) 10*3/uL Monocytes # 0.71 (0.20-1.00) 10*3/uL Eosinophils # 0.23 (0.04-0.35) 10*3/uL Basophils # 0.05 (0.00-0.10) 10*3/uL PT 9.7 L (10.0-12.5) sec INR 0.9 (<1.2) APTT 24.3 (22.0-30.0) sec D-Dimer 0.72 H (<0.60) mg/L FEU Sodium 138 (137-145) mmol/L Potassium 3.9 (3.5-5.1) mmol/L Chloride 104 (98-107) mmol/L Carbon Dioxide 26 (22-30) mmol/L Anion Gap 8 mmol/L BUN 12 (7-17) mg/dL Creatinine 0.55 (0.52-1.04) mg/dL Est GFR (CKD-EPI)AfAm >90 (>60 ml/min/1.73 sqM) Est GFR (CKD-EPI)NonAf >90 (>60 ml/min/1.73 sqM) Glucose 115 H (74-99) mg/dL Plasma Lactic Acid Carlos (0.7-2.0) mmol/L Calcium 8.7 (8.4-10.2) mg/dL Total Bilirubin 0.6 (0.2-1.3) mg/dL AST 20 (14-36) U/L ALT 19 (4-34) U/L Alkaline Phosphatase 107 (38-126) U/L Troponin I (0.000-0.034) ng/mL Total Protein 7.4 (6.3-8.2) g/dL Albumin 4.2 (3.5-5.0) g/dL 07/29/24 07/29/24 Range/Units 09:15 09:15 WBC (4.50-10.00) 10*3/uL RBC (4.10-5.20) 10*6/uL Hgb (12.0-15.0) g/dL Hct (37.2-46.3) % MCV (80.0-97.0) fL MCH (27.0-32.0) pg MCHC (32.0-37.0) g/dL Plt Count (140-440) 10*3/uL MPV (9.5-12.2) fL Immature Gran % (Auto) % Neutrophils % % Lymphocytes % % Monocytes % % Eosinophils % % Basophils % % Immature Gran # (0.00-0.04) 10*3/uL Neutrophils # (1.80-7.70) 10*3/uL Lymphocytes # (0.90-5.00) 10*3/uL Monocytes # (0.20-1.00) 10*3/uL Eosinophils # (0.04-0.35) 10*3/uL Basophils # (0.00-0.10) 10*3/uL PT (10.0-12.5) sec INR (<1.2) APTT (22.0-30.0) sec D-Dimer (<0.60) mg/L FEU Sodium (137-145) mmol/L Potassium (3.5-5.1) mmol/L Chloride (98-107) mmol/L Carbon Dioxide (22-30) mmol/L Anion Gap mmol/L BUN (7-17) mg/dL Creatinine (0.52-1.04) mg/dL Est GFR (CKD-EPI)AfAm (>60 ml/min/1.73 sqM) Est GFR (CKD-EPI)NonAf (>60 ml/min/1.73 sqM) Glucose (74-99) mg/dL Plasma Lactic Acid Carlos 1.4 (0.7-2.0) mmol/L Calcium (8.4-10.2) mg/dL Total Bilirubin (0.2-1.3) mg/dL AST (14-36) U/L ALT (4-34) U/L Alkaline Phosphatase (38-126) U/L Troponin I <0.012 (0.000-0.034) ng/mL Total Protein (6.3-8.2) g/dL Albumin (3.5-5.0) g/dL Disposition Clinical Impression: Atypical chest pain Disposition: HOME SELF-CARE Condition: Good Instructions (If sedation given, give patient instructions): Chest Pain (ED) Prescriptions: Ketorolac [Toradol] 10 mg PO Q8HR #15 tab Is patient prescribed a controlled substance at d/c from ED?: No Referrals: Robin Lutz DO [Primary Care Provider] - 1-2 days Time of Disposition: 11:22
[2024-07-29 09:26] LABS: Basophils # (A) 0.05 10*3/uL (0.00-0.10); Basophils % (A) 0.6 %; Eosinophils # (A) 0.23 10*3/uL (0.04-0.35); Eosinophils % (A) 2.6 %; HCT 40.4 % (37.2-46.3); HGB 13.4 g/dL (12.0-15.0); Lymphocytes % (A) 24.8 %; MCH 27.5 pg (27.0-32.0); MCHC 33.2 g/dL (32.0-37.0); Mean Platelet Volume 10.1 fL (9.5-12.2); Monocytes # (A) 0.71 10*3/uL (0.20-1.00); Neutrophils # (A) 5.65 10*3/uL (1.80-7.70); Neutrophils % (A) 63.7 %; Platelet Count 262 10*3/uL (140-440); RBC 4.87 10*6/uL (4.10-5.20); RDW 13.7 % (11.5-14.5); WBC 8.87 10*3/uL (4.50-10.00)
--- NOTE | 2024-07-29 09:32 | XR ---
EXAMINATION TYPE: XR chest 2V DATE OF EXAM: 07/29/2024 9:28 AM COMPARISON: 09/12/2023 CLINICAL INDICATION: Female, 38 years old with history of difficulty breathing, TECHNIQUE: XR chest 2V view(s) obtained. FINDINGS: The heart size is normal. The pulmonary vasculature is normal. The lungs are clear. Stimulator leads are in the midthoracic region IMPRESSION: 1. No acute pulmonary process. [facility], , 07/29/2024 9:30 AM
[2024-07-29 09:37] LABS: ALT 19 U/L (4-34); AST 20 U/L (14-36); African American GFR (CKD) >90 (>60 ml/min/1.73 sqM); Albumin 4.2 g/dL (3.5-5.0); Alkaline Phosphatase 107 U/L (38-126); Anion Gap 8 mmol/L; Blood Urea Nitrogen 12 mg/dL (7-17); Calcium 8.7 mg/dL (8.4-10.2); Carbon Dioxide 26 mmol/L (22-30); Chloride 104 mmol/L (98-107); Glucose 115 mg/dL (74-99); Non-African American GFR(CKD) >90 (>60 ml/min/1.73 sqM); Potassium 3.9 mmol/L (3.5-5.1); Sodium 138 mmol/L (137-145); Total Bilirubin 0.6 mg/dL (0.2-1.3); Total Protein 7.4 g/dL (6.3-8.2)
[2024-07-29 09:40] LABS: INR 0.9 (<1.2); Partial Thromboplastin Time 24.3 sec (22.0-30.0); Prothrombin Time 9.7 sec (10.0-12.5)
--- NOTE | 2024-07-29 10:12 | CT ---
EXAMINATION TYPE: CT chest angio for PE DATE OF EXAM: 07/29/2024 10:03 AM COMPARISON: 10/08/2022 CLINICAL INDICATION: Female, 38 years old with history of Chest pain history of PE; Chest pain X4 day s history of PE TECHNIQUE/CONTRAST: CTA scan of the thorax is performed with IV Contrast, patient injected with 100 ml mL of Isovue 370, MIP images are created and reviewed these are created on a separate workstation.. CT DLP: 792.2 mGycm, Automated exposure control for dose reduction was used. FINDINGS: Lungs/Pleura: No evidence of focal consolidation, pleural effusion or pneumothorax. Airway: Large airways are patent. Heart: Size within normal limits. No significant coronary artery calcifications. Vasculature: There is no evidence for a filling defect within the pulmonary vasculature to suggest ac [place] pulmonary embolism. The pulmonary artery is of normal size. Mediastinum: No gross evidence of adenopathy. Musculoskeletal: Mild disc degeneration changes are present throughout the thoracolumbar spine second grace to osteophyte formation and facet joint arthropathy. stimulator leads pleura over the posterior m id spine. Soft Tissues/lymph nodes: Unremarkable. Lower neck: No significant findings. Upper Abdomen: No significant findings. IMPRESSION: 1. No evidence of pulmonary embolism. [facility], , 07/29/2024 10:10 AM
[2024-07-29] MEDS: KETOROLAC 15 MG/ML 1 ML VIAL IVP STA (10:43)
[2024-07-29 11:42] VITALS: BP 136/86; PULSE 68; RESP 16
== END 2024-07-29 11:42 | disposition home or self-care (01) ==
LOC: EC 08:41
DX: R07.89 Other chest pain (principal)
CPT/HCPCS: 36415; 93005; 85379; 80053; 83605; 84484; 85025; 85610; 85730; 71046; 71275; 99285; 96374; J1885; Q9967